=== PATIENT | male | born 1955 | race Two or more races ===

== ENCOUNTER 2018-03-15 15:50 | Emergency (ER) | payer MEDICARE, OTHER ==
[~2018-03-15] VITALS: Ht 167.6 cm; Wt 61.2 kg
[~2018-03-15 15:50] MED LIST: AMLODIPINE BESY10 MG ORAL; ATORVASTATIN CA20 MG ORAL; DEXILANT60 MG ORAL; LISINOPRIL20 MG ORAL; PHOSLO667 M1 PO; RENVELA800 MG ORAL; UNOBMED
[2018-03-15 16:30] VITALS: BP 157/87
[2018-03-15] MEDS ORDERED: Morphine Sulfate 4mg/ml Inj (IV/IM USE ONLY) IVP ONE ×3 (16:30→21:00)
--- NOTE | 2018-03-15 17:08 | Emergency Room Report ---
History of Present Illness General Chief Complaint: Nausea Source: Patient (Boby Mahajan MD) Present Illness HPI Patient presents with severe lower back pain that began after dialysis today. He never had back pain like this before. In addition to that he's had black diarrhea. He's never had that either. He is also complaining about some nausea. No medications have been taken for pain. There were no problems at dialysis today today. H/O gastritis H/O anemia - alleges never with transfusion H/O HTN No fevers, chills, vomiting, headache, dyspnea, chest pain, fever, chills. (Bboy Mahajan MD) Allergies: Coded Allergies: No Known Allergies (Unverified , 01/07/15) Patient History Past Medical History: see triage record Past Surgical History: other - fistula L arm, cataract surgery Social History: Denies: smoking, alcohol use Social History Narrative with friend, born in [facility] Reviewed Nursing Documentation: PMH: Agreed; PSxH: Agreed (Boby Mahajan MD) Nursing Documentation-PMH Past Medical History: No History, Except For Hx Cardiac Problems: Yes Hx Hypertension: Yes Hx Diabetes: Yes Hx Cancer: No Hx Gastrointestinal Problems: Yes Hx Dialysis: Yes - Tue/Aubree/Sat Hx Neurological Problems: No (Boby Mahajan MD) Review of Systems All Other Systems: negative except mentioned in HPI (Boby Mahajan MD) Physical Exam Vital Signs Date Time Temp Pulse Resp B/P (MAP) Pulse Ox O2 Delivery O2 Flow Rate FiO2 03/15/18 15:53 97.9 85 20 109/67 100 Room Air Sp02 EP Interpretation: reviewed, normal General Appearance: no apparent distress, GCS 15, mild distress, Chronically Ill Head: normocephalic Eyes: bilateral eye normal inspection, bilateral eye conjunctivae pale ENT: moist mucus membranes Neck: supple Respiratory: lungs clear, normal breath sounds Cardiovascular #1: regular rate, rhythm, no edema Cardiovascular #2: 2+ radial (R), 2+ radial (L) - fistula with pulsations, 2+ femoral (R), 2+ femoral (L) Gastrointestinal: normal inspection, normal bowel sounds, non tender, no mass, non-distended Rectal: heme positive stool - brown color Genitourinary: CVA tenderness (L) Musculoskeletal: gait/station normal, normal range of motion, no calf tenderness, tender - lumbar area Neurologic: alert, oriented x3, grossly normal Psychiatric: mood/affect normal Skin: warm/dry (Boby Mahajan MD) Procedures Critical Care Time Critical Care Time Total Critical Care Time: 120 min bedside evaluation and treatment excludes procedures (EKG). Reason for critical care: retroperitoneal hematoma/bleeding, GI bleed, repeat evaluations, multiple consultations for transfer higher level of care. Possible complications: hypotension, hypertension, CA, shock, arrhythmias, metabolic acidosis, end organ damage, respiratory failure. Interventions: pepcid, analgesia, blood transfusion with informed consent, transfer higher level of care with multiple consultations Course: Patient with back pain post dialysis. CT with large retroperitoneal/ perinephric hematoma L. No coagulopathy, but given DDAVP. Guaiac + stools, pepcid given. Attempt transfer [facility], declined after presentation (capacity). Present [facility] - declined capacity. Present [facility]. Requested CTA. Increased hematoma. Repeate H/H drop 2 points. Transfused 1 unit. Repeat analgesia. Accepted [facility]. PMD requesting transfer [facility]. Multiple discussions with [facility]. Pain improved and patient tolerating blood. Consultations: nursing staff, EMS, family Performed by: Dr. Mahajan Tolerated well condition = critical but improved and stable for transfer to higher level of care (Boby Mahajan MD) Medical Decision Making Diagnostic Impression: Primary Impression: Retroperitoneal hematoma Additional Impressions: ESRD (end stage renal disease) on dialysis GI bleed Qualified Codes: K92.2 - Gastrointestinal hemorrhage, unspecified Anemia Qualified Codes: D64.89 - Other specified anemias ER Course Patient presents with severe lumbar back pain and black stools. I differential includes aortic aneurysm, pyelonephritis, GI bleed, electrolyte imbalance amongst others. Evaluation will be with EKG, chest x-ray, CT of the back and abdomen and pelvis and labs. The patient will be treated with analgesia and Pepcid initially. CT call with L large retroperitoneal hematoma. Contact [facility] - state sat. Contact [facility] 17:28. Coags normal. DDAVP ordered. Repeating H/H. [facility] return call @ 18:25 stating capacity and declined. Calling [facility] Vascular 18:30. Dr. Santiago states we need to do CTA. H/H dropped 2 points. CTA shows hematoma has expanded. Contact Dr. Santiago again 20:37. Will start transfusion. Discussed with Dr. Ellis. Dr. Santiago accepts patient. Informed consent for transfusion with patient. Blood infusing. Arranging transport. Pain somewhat improved. VS stable. No evidence of hemorrhagic shock. [facility] of Dr. Ellis. Uncertain if would be accepted (had been declined before). As accepted at [facility], proceed with transfer there. Dr. Kurtz aware of plan for transfer and discussions with [facility]. Laboratory Tests Test 03/15/18 16:47 03/15/18 17:17 White Blood Count 7.4 K/UL (4.8-10.8) Red Blood Count 3.31 M/UL (4.70-6.10) L Hemoglobin 10.0 G/DL (14.2-18.0) L Hematocrit 31.2 % (42.0-52.0) L Mean Corpuscular Volume 94 FL (80-99) Mean Corpuscular Hemoglobin 30.1 PG (27.0-31.0) Mean Corpuscular Hemoglobin Concent 32.0 G/DL (32.0-36.0) Red Cell Distribution Width 13.3 % (11.6-14.8) Platelet Count 220 K/UL (150-450) Mean Platelet Volume 7.1 FL (6.5-10.1) Neutrophils (%) (Auto) 83.7 % (45.0-75.0) H Lymphocytes (%) (Auto) 8.4 % (20.0-45.0) L Monocytes (%) (Auto) 5.2 % (1.0-10.0) Eosinophils (%) (Auto) 1.3 % (0.0-3.0) Basophils (%) (Auto) 1.3 % (0.0-2.0) Prothrombin Time 11.5 SEC (9.30-11.50) Prothrombin Time INR 1.1 (0.9-1.1) PTT 29 SEC (23-33) Sodium Level 134 MMOL/L (136-145) L Potassium Level 4.0 MMOL/L (3.5-5.1) Chloride Level 99 MMOL/L (98-107) Carbon Dioxide Level 19 MMOL/L (21-32) L Anion Gap 16 mmol/L (5-15) H Blood Urea Nitrogen 18 mg/dL (7-18) Creatinine 4.6 MG/DL (0.55-1.30) H Estimate Glomerular Filtration Rate 13.1 mL/min (>60) Glucose Level 181 MG/DL (74-106) H Calcium Level 9.2 MG/DL (8.5-10.1) Total Bilirubin 1.0 MG/DL (0.2-1.0) Aspartate Amino Transferase (AST) 47 U/L (15-37) H Alanine Aminotransferase (ALT) 19 U/L (12-78) Alkaline Phosphatase 131 U/L (46-116) H Total Creatine Kinase 46 U/L (26-308) Troponin I 0.031 ng/mL (0.000-0.056) Total Protein 8.8 G/DL (6.4-8.2) H Albumin 3.5 G/DL (3.4-5.0) Globulin 5.3 g/dL Albumin/Globulin Ratio 0.7 (1.0-2.7) L Lipase 275 U/L (73-393) Urine Color Pale yellow Urine Appearance Cloudy Urine pH 6.5 (4.5-8.0) Urine Specific Bells 1.010 (1.005-1.035) Urine Protein 4+ (NEGATIVE) H Urine Glucose (UA) 1+ (NEGATIVE) H Urine Ketones 1+ (NEGATIVE) H Urine Blood 5+ (NEGATIVE) H Urine Nitrite Negative (NEGATIVE) Urine Bilirubin Negative (NEGATIVE) Urine Urobilinogen Normal MG/DL (0.0-1.0) Urine Leukocyte Esterase 3+ (NEGATIVE) H Urine RBC 60-80 /HPF (0 - 0) H Urine WBC 5-10 /HPF (0 - 0) H Urine Squamous Epithelial Cells None /LPF (NONE/OCC) Urine Bacteria Moderate /HPF (NONE) H (Boby Mahajan MD) ER Course This patient was initially signout to me for transfer to [facility]. I spoke with Dr.Shetcher Travis who is the primary care doctor. He wanted the patient to be transferred to [facility]. Since there was an ICU bed at [place], I spoke with Dr. Ortega who is the ICU attending. He spoke with Dr. Alberto and IR. He accepted the patient for transfer to [facility]. We call [facility] back to cancel the transfer. Patient will be going to [facility] instead. (Koby Kurtz MD) EKG Diagnostic Results Rate: normal Rhythm: NSR ST Segments: no acute changes - Nonspecific ST-T wave changes with prolonged QT interval (Bboy Mahajan MD) Rhythm Strip Diag. Results EP Interpretation: yes Rhythm: NSR, no PVC's, no ectopy (Boby Mahajan MD) Chest X-Ray Diagnostic Results Chest X-Ray Diagnostic Results : Chest X-Ray Ordered: Yes # of Views/Limited/Complete: 1 View Indication: Other EP Interpretation: Yes Interpretation: no consolidation, no effusion, no pneumothorax, other - inc cor Impression: Other Electronically Signed by: Electronically signed by Boby Mahajan MD (Boby Mahajan MD) CT/MRI/US Diagnostic Results CT/MRI/US Diagnostic Results #1: Imaging Test Ordered: CT abd pelvis Impression large retroperitoneal hematoma CT/MRI/US Diagnostic Results #2: Imaging Test Ordered: CTA Impression Redemonstration subcapsular left renal hematoma. Since the prior study just throughout previous there is a new hematoma to the posterior left perinephric space measuring 8.8 x 3.8 cm. There is a 16 cm anterior left perinephric hematoma which is similar to prior. No active arterial face extravasation. (Boby Mahajan MD) Last Vital Signs Date Time Temp Pulse Resp B/P (MAP) Pulse Ox O2 Delivery O2 Flow Rate FiO2 03/15/18 23:50 98.3 86 18 142/57 100 Room Air Status: improved (Boby Mahajan MD) Disposition: XFER [facility] - higher level of care Condition: Critical - but stable for transfer Boby Mahajan MD Mar 15, 2018 17:08 Koby Kurtz MD Mar 15, 2018 23:27
[2018-03-15 17:19] LABS: BASOPHILS % (AUTO) 1.3 % (0.0-2.0); EOSINOPHILS % (AUTO) 1.3 % (0.0-3.0); HEMATOCRIT 31.2 % (42.0-52.0); LYMPHOCYTES % (AUTO) 8.4 % (20.0-45.0); MEAN CORPUSCULAR VOLUME 94 FL (80-99); MONOCYTES % (AUTO) 5.2 % (1.0-10.0); NEUTROPHILS % (AUTO) 83.7 % (45.0-75.0); PLATELET COUNT 220 K/UL (150-450); RED BLOOD COUNT 3.31 M/UL (4.70-6.10); RED CELL DISTRIBUTION WIDTH 13.3 % (11.6-14.8); WHITE BLOOD COUNT 7.4 K/UL (4.8-10.8)
[2018-03-15 17:36] LABS: APPEARANCE,URINE CLOUDY; BILIRUBIN, URINE NEGATIVE (NEGATIVE); COLOR,URINE PALE YELLOW; GLUCOSE, URINE (UA) 1+ (NEGATIVE); KETONES,URINE 1+ (NEGATIVE); LEUKOCYTE ESTERASE ,URINE 3+ (NEGATIVE); NITRITE,URINE NEGATIVE (NEGATIVE); PH,URINE 6.5 (4.5-8.0); PROTEIN,URINE 4+ (NEGATIVE); UROBILINOGEN,URINE NORMAL MG/DL (0.0-1.0)
[2018-03-15 17:39] LABS: ANION GAP 16 mmol/L (5-15); BLOOD UREA NITROGEN 18 mg/dL (7-18); CALCIUM 9.2 MG/DL (8.5-10.1); CARBON DIOXIDE 19 MMOL/L (21-32); CHLORIDE 99 MMOL/L (98-107); CREATININE 4.6 MG/DL (0.55-1.30); SODIUM 134 MMOL/L (136-145)
[2018-03-15 17:40] LABS: ALANINE AMINOTRANSFERASE 19 U/L (12-78); ALBUMIN 3.5 G/DL (3.4-5.0); ALBUMIN/GLOBULIN RATIO 0.7 (1.0-2.7); ALKALINE PHOSPHATASE 131 U/L (46-116); ASPARTATE AMINO TRANSFERASE 47 U/L (15-37); CREATINE KINASE 46 U/L (26-308)
[2018-03-15 17:42] LABS: INR 1.1 (0.9-1.1)
[2018-03-15] MEDS ORDERED: Desmopressin Nasal 5ml NASAL ONE (18:15)
[2018-03-15 18:30] VITALS: BP 140/69
[2018-03-15] MEDS ORDERED: Isovue-370 150ml vial INJ PRN (19:00)
[2018-03-15 19:06] LABS: HEMATOCRIT 26.4 % (42.0-52.0); HEMOGLOBIN 8.2 G/DL (14.2-18.0); MEAN CORPUSCULAR VOLUME 96 FL (80-99); PLATELET COUNT 213 K/UL (150-450); RED BLOOD COUNT 2.77 M/UL (4.70-6.10); RED CELL DISTRIBUTION WIDTH 13.5 % (11.6-14.8); WHITE BLOOD COUNT 10.7 K/UL (4.8-10.8)
[2018-03-15 20:46] VITALS: BP 155/71
[2018-03-15 23:10] VITALS: BP 139/63
[2018-03-15 23:49] VITALS: BP 142/57
[2018-03-15 23:50] VITALS: BP 142/57
--- NOTE | 2018-03-16 13:47 | Diagnostic Imaging Report ---
Indication: Abdominal pain Technique: Continuous helical transaxial imaging of the abdomen and pelvis was obtained from the lung bases to the pubic symphysis. No intravenous contrast was administered. Coronal 2-D reformats were also obtained. Automatic Exposure Control was utilized. Total Dose length Product (DLP): 996.[address] Dose Index Volume (CTDIvol): 11.32,10.75 mGy Comparison: none Findings: There is a fairly large left capsular hematoma demonstrated with heterogeneous hyperdense blood. The [place] left kidney is a small. The capsular component of the hematoma is approximately 2.5 cm x 9 cm and is seen from the upper to lower poles. There is also moderate degree of retroperitoneal and perinephric the soft tissue stranding due to acute hematoma. The largest component of this is in the anterior aspect of the retroperitoneum. On transaxial images the hematoma measures 10 x 4.7 x 15 cm. This starts below the kidney with a hematoma extending along the left psoas margin into the left hemipelvis. Moderate small vessel arterial calcifications are present. Fatty liver noted. Mild basal atelectasis demonstrated. Hiatal hernia noted. Thickening of the urinary bladder wall demonstrated. IMPRESSION: Prominent acute left renal hematoma with the involvement of the left renal capsule and portions of the perinephric retroperitoneum especially the anterior pararenal space as described above. Extensive small vessel vascular disease likely related to secondary hyperparathyroidism. Thickening of the urinary bladder wall. Correlate for cystitis. Mild basal atelectasis Hiatal hernia Fatty liver [facility] has communicated the preliminary results to the Emergency Department. Their findings are largely concordant with this report. The CT scanner at [facility] is accredited by the [employer] and the scans are performed using dose optimization techniques as appropriate to a performed exam including Automatic Exposure control.
--- NOTE | 2018-03-16 13:47 | Diagnostic Imaging Report ---
Indication: Retroperitoneal left renal hematoma Technique: Continuous helical transaxial imaging of the abdomen and pelvis was obtained from the lung base to the pubic symphysis during rapid intravenous contrast administration. Arterial phase of enhancement obtained. Coronal 2-D reformats were also obtained and maximum intensity projection images in multiple planes. Study obtained in a Siemens sensation [address] Total Dose length Product (DLP): [address] Dose Index Volume (CTDIvol): 8.11 x 3, 64.89, 10.21 mGy Comparison: [address] Findings: There is redemonstration of a large left renal capsular hematoma and large perinephric hematoma anterior to the left kidney in continuity with the left kidney occupying the anterior left pararenal space. The perinephric component of the hematoma measures about 9.6 x 5.0 on transaxial images. The capsular portion of the hematoma has also enlarged since the last examination. In addition, there is a new hematoma just posterior to the left kidney measuring approximately 4.8 x 2.8 x 7.2 cm. Additional more ill-defined blood seen as soft tissue stranding within the retroperitoneum along portions of the anterior and posterior pararenal space noted. The findings indicative of active bleeding although a definite blush of a contrast extravasation not demonstrated on this study which was unfortunately only obtained during arterial phase. Both kidneys are atrophic although the margins of the left kidney are difficult to see as they are fairly contiguous with the capsular hematoma. There is extensive vascular calcification present. The liver is low in attenuation consistent with fatty infiltration. There is blood tracking around the liver and into the paracolic gutter and pelvis. Hiatal hernia is present. There is a small amount of atelectasis present at the left lung base. Aorta is moderately calcified. The major branches of the aorta including the celiac artery and superior mesenteric artery show no significant stenosis. There is a arterial vascular plaque present within portions of both renal arteries which should show no significant stenosis. The common and external iliac arteries are unremarkable. The internal iliac arteries are unremarkable. IMPRESSION: Interval enlargement of left capsular hematoma and retroperitoneal hematomas as described above indicative of active bleeding. Other incidental findings as above unchanged. [facility] has communicated the preliminary results to the Emergency Department. Their findings are largely concordant with this report. Critical value communication. Findings were discussed via telephone with Dr. Mahajan in the emergency department 12/13/18 @20:[address] Brooks messina from [employer]. The CT scanner at [facility] is accredited by the [employer] and the scans are performed using dose optimization techniques as appropriate to a performed exam including Automatic Exposure control.
--- NOTE | 2018-03-16 13:47 | Diagnostic Imaging Report ---
Indication: Back pain Technique: Continuous helical transaxial imaging of the lumbar spine was obtained from the lung bases to the pubic symphysis. No IV contrast was administered. Coronal 2-D reformats were also obtained. Study obtained in a Siemens sensation [address] Total Dose length Product (DLP): 353.[address] Dose Index Volume (CTDIvol): 12.07 mGy Comparison: None Findings: No acute fractures identified. The bones appear osteopenic. There is no malalignment. Some endplate spurs noted. The thecal sac and spinal canal appear small in general especially in the mid to lower part of the lumbar spine. Aortoiliac calcifications are fairly extensive. There is a partially image a retroperitoneal hematoma on the left. This was discussed in detail on the CT abdomen and pelvis report. IMPRESSION: No acute injury identified within the lumbar spine. Generalized osteopenia and mild degenerative changes noted. Please refer to the separately dictated CT abdomen pelvis The CT scanner at [facility] is accredited by the [employer] and the scans are performed using dose optimization techniques as appropriate to a performed exam including Automatic Exposure control.
--- NOTE | 2018-03-16 13:48 | Diagnostic Imaging Report ---
Indication: Dyspnea Comparison: None A single view chest radiograph was obtained. Findings: No definite infiltrate or pulmonary vascular congestion identified. There is probable mild atelectasis at the lung bases especially on the left. Lung volumes are low bilaterally. The heart is enlarged. The aorta is mildly enlarged consistent with atherosclerotic vascular disease. The bones are osteopenic. Impression: Mild basilar atelectasis.
--- NOTE | 2018-03-16 16:05 | Cardiology Report ---
APPROVED REPORT EKG Measurement Heart [id number] PA 150P54 [id number] Normal sinus rhythm Nonspecific ST and T wave abnormality Prolonged QT Abnormal ECG
== END 2018-03-15 23:51 | disposition short-term general hospital (02) ==
LOC: EMR 16:40
DX: K66.1 Hemoperitoneum (principal); I12.0 Hypertensive chronic kidney disease with stage 5 chronic kidney disease or end stage renal disease; N18.6 End stage renal disease; Z99.2 Dependence on renal dialysis; E11.9 Type 2 diabetes mellitus without complications; K92.2 Gastrointestinal hemorrhage, unspecified; D64.9 Anemia, unspecified; K76.0 Fatty (change of) liver, not elsewhere classified; K44.9 Diaphragmatic hernia without obstruction or gangrene; M85.88 Other specified disorders of bone density and structure, other site
CPT/HCPCS: 36415; 36430; 71045; 72131; 74175; 74176; 80053; 81003; 82550; 83690; 84484; 85007; 85025; 85610; 85730; 86850; 86900; 86901; 86920; 87086; 93005; 96374; 96375; 96376; 99291; J2270; J2405; P9016; Q9967; S0028

== ENCOUNTER 2018-03-22 05:55 | Emergency (ER) | payer MEDICARE, OTHER ==
[~2018-03-22] VITALS: Ht 162.6 cm; Wt 59.0 kg
[2018-03-22 06:05] VITALS: BP 167/68
[2018-03-22] MEDS ORDERED: Isovue-300 100ml vial INJ PRN (06:45)
[2018-03-22 06:55] LABS: BASOPHILS % (AUTO) 1.4 % (0.0-2.0); HEMATOCRIT 28.7 % (42.0-52.0); HEMOGLOBIN 9.1 G/DL (14.2-18.0); MEAN CORPUSCULAR VOLUME 94 FL (80-99); MONOCYTES % (AUTO) 16.8 % (1.0-10.0); NEUTROPHILS % (AUTO) 62.8 % (45.0-75.0); PLATELET COUNT 403 K/UL (150-450); RED BLOOD COUNT 3.03 M/UL (4.70-6.10); RED CELL DISTRIBUTION WIDTH 13.7 % (11.6-14.8); WHITE BLOOD COUNT 5.9 K/UL (4.8-10.8)
[2018-03-22 07:03] LABS: ANION GAP 13 mmol/L (5-15); BLOOD UREA NITROGEN 52 mg/dL (7-18); CALCIUM 9.9 MG/DL (8.5-10.1); CARBON DIOXIDE 23 MMOL/L (21-32); CHLORIDE 94 MMOL/L (98-107); CREATININE 9.5 MG/DL (0.55-1.30); POTASSIUM 5.3 MMOL/L (3.5-5.1); SODIUM 130 MMOL/L (136-145)
--- NOTE | 2018-03-22 07:12 | Emergency Room Report ---
History of Present Illness General Chief Complaint: General Complaint Source: Patient Present Illness HPI This patient states that he was due for dialysis this morning and when he went to the dialysis clinic he was told he could not get dialysis and that he needed to come to the emergency department. Further investigation, the patient was admitted to [facility] and was dialyzed 3 days ago on the day he was discharged. He then showed up for his normal dialysis time that is Monday, , Monday. He was told to come to the emergency department for dialysis. He has no complaints. He denies chest pain or short of breath. He denies abdominal pain. He denies recent illness. He denies fever or chills. He denies cough or congestion. He has no other complaints. Allergies: Coded Allergies: No Known Allergies (Unverified , 01/07/15) Patient History Past Medical History: see triage record, DM, HTN, renal disease, dialysis Social History: Denies: smoking, alcohol use, drug use Reviewed Nursing Documentation: PMH: Agreed; PSxH: Agreed Nursing Documentation-PMH Hx Cardiac Problems: Yes Hx Hypertension: Yes Hx Pacemaker: No Hx Asthma: No Hx COPD: No Hx Diabetes: Yes Hx Cancer: No Hx Gastrointestinal Problems: No Hx Dialysis: Yes - , , MON History Of Psychiatric Problem: No Hx Neurological Problems: No Hx Cerebrovascular Accident: No Hx Seizures: No Review of Systems All Other Systems: negative except mentioned in HPI Physical Exam Vital Signs Date Time Temp Pulse Resp B/P (MAP) Pulse Ox O2 Delivery O2 Flow Rate FiO2 03/22/18 05:59 98.2 89 18 130/68 98 Room Air Sp02 EP Interpretation: reviewed, normal General Appearance: no apparent distress, alert, GCS 15, non-toxic Head: normocephalic, atraumatic Eyes: bilateral eye normal inspection, bilateral eye PERRL ENT: hearing grossly normal, normal pharynx, no angioedema, normal voice Neck: full range of motion, supple/symm/no masses Respiratory: chest non-tender, lungs clear, normal breath sounds, speaking full sentences Cardiovascular #1: regular rate, rhythm, no edema Gastrointestinal: normal bowel sounds, non tender, soft, non-distended, no guarding, no rebound Rectal: deferred Musculoskeletal: back normal, gait/station normal, normal range of motion, non- tender Neurologic: alert, oriented x3, responsive, motor strength/tone normal, sensory intact, speech normal Psychiatric: judgement/insight normal, memory normal, mood/affect normal, no suicidal/homicidal ideation Skin: normal color, no rash, warm/dry, well hydrated Medical Decision Making Diagnostic Impression: Primary Impression: ESRD (end stage renal disease) ER Course There was some confusion regarding the dialysis clinic and concern that the patient had missed dialysis. However, the patient was an inpatient at [facility] and did receive his routine dialysis. The patient has no complaints. The dialysis center was contacted and the situation was explained. The dialysis center agreed to have this patient come immediately to their clinic for dialysis. I do not feel that this patient needs any further evaluation emergency Department is better served getting his typical dialysis at the dialysis clinic. He is discharged with instructions to go to dialysis clinic. The clinic was contacted and is expecting him. He is given close return precautions about instructions. Please note that this Emergency Department Report was dictated using [email or web address] press operator assistant technology software, occasionally this can lead to erroneous entry secondary to interpretation by the dictation equipment. Laboratory Tests Test 03/22/18 06:30 White Blood Count 5.9 K/UL (4.8-10.8) Red Blood Count 3.03 M/UL (4.70-6.10) L Hemoglobin 9.1 G/DL (14.2-18.0) L Hematocrit 28.7 % (42.0-52.0) L Mean Corpuscular Volume 94 FL (80-99) Mean Corpuscular Hemoglobin 29.9 PG (27.0-31.0) Mean Corpuscular Hemoglobin Concent 31.6 G/DL (32.0-36.0) L Red Cell Distribution Width 13.7 % (11.6-14.8) Platelet Count 403 K/UL (150-450) Mean Platelet Volume 6.2 FL (6.5-10.1) L Neutrophils (%) (Auto) 62.8 % (45.0-75.0) Lymphocytes (%) (Auto) 15.0 % (20.0-45.0) L Monocytes (%) (Auto) 16.8 % (1.0-10.0) H Eosinophils (%) (Auto) 4.0 % (0.0-3.0) H Basophils (%) (Auto) 1.4 % (0.0-2.0) Prothrombin Time 10.9 SEC (9.30-11.50) Prothrombin Time INR 1.0 (0.9-1.1) PTT 28 SEC (23-33) Sodium Level 130 MMOL/L (136-145) L Potassium Level 5.3 MMOL/L (3.5-5.1) H Chloride Level 94 MMOL/L (98-107) L Carbon Dioxide Level 23 MMOL/L (21-32) Anion Gap 13 mmol/L (5-15) Blood Urea Nitrogen 52 mg/dL (7-18) H Creatinine 9.5 MG/DL (0.55-1.30) H Estimate Glomerular Filtration Rate 5.7 mL/min (>60) Glucose Level 111 MG/DL (74-106) H Calcium Level 9.9 MG/DL (8.5-10.1) Total Bilirubin Pending Aspartate Amino Transferase (AST) Pending Alanine Aminotransferase (ALT) Pending Alkaline Phosphatase Pending Total Creatine Kinase Pending Creatine Kinase MB Pending Troponin I Pending Total Protein Pending Albumin Pending Globulin Pending EKG Diagnostic Results Rate: normal Rhythm: NSR ST Segments: no acute changes Rhythm Strip Diag. Results EP Interpretation: yes Rate: 80's Rhythm: NSR, no PVC's, no ectopy Last Vital Signs Date Time Temp Pulse Resp B/P (MAP) Pulse Ox O2 Delivery O2 Flow Rate FiO2 03/22/18 06:41 89 18 Room Air 03/22/18 06:05 98.4 167/68 100 Disposition: HOME, SELF-CARE Condition: Stable Referrals: NOT CHOSEN IPA/,REFERRING (PCP) Diane Garza DO Mar 22, 2018 07:12
[2018-03-22 07:19] LABS: ALANINE AMINOTRANSFERASE 17 U/L (12-78); ALBUMIN 3.6 G/DL (3.4-5.0); ALBUMIN/GLOBULIN RATIO 0.6 (1.0-2.7); ALKALINE PHOSPHATASE 130 U/L (46-116); ASPARTATE AMINO TRANSFERASE 28 U/L (15-37); BILIRUBIN,TOTAL 1.1 MG/DL (0.2-1.0); CKMB < 0.5 NG/ML (0.0-3.6); CREATINE KINASE 53 U/L (26-308)
[2018-03-22 07:23] LABS: BILIRUBIN,DIRECT 0.2 MG/DL (0.0-0.3)
[2018-03-22 07:26] VITALS: BP 158/72
--- NOTE | 2018-03-22 09:40 | Cardiology Report ---
APPROVED REPORT EKG Measurement Heart [id number] Normal sinus rhythm Nonspecific ST abnormality Minimal voltage for LVH Abnormal ECG
--- NOTE | 2018-03-22 10:14 | Diagnostic Imaging Report ---
Indication: Chest pain Technique: XRAY Chest 1v Comparison: 03/15/2018 Findings: Stable cardiomegaly. Mediastinal contours are sharp. Atherosclerotic calcifications noted in the aortic arch. Unchanged linear atelectasis or scarring at the left base. No new focal consolidation. No pleural effusion or pneumothorax. Degenerative changes are noted in the spine. No acute osseous abnormality. Impression: Unchanged linear atelectasis or scarring at the left base. No new focal consolidation. Stable cardiomegaly. No radiographic evidence to suggest pulmonary edema.
== END 2018-03-22 07:29 | disposition home or self-care (01) ==
LOC: EMR 06:31
DX: I12.0 Hypertensive chronic kidney disease with stage 5 chronic kidney disease or end stage renal disease (principal); N18.6 End stage renal disease; Z99.2 Dependence on renal dialysis; E11.22 Type 2 diabetes mellitus with diabetic chronic kidney disease
CPT/HCPCS: 36415; 71045; 80053; 82248; 82550; 82553; 84484; 85025; 85610; 85730; 86850; 86900; 86901; 93005; 99284

== ENCOUNTER 2018-04-24 12:08 | Emergency (ER) | payer MEDICARE, OTHER ==
[~2018-04-24] VITALS: Ht 170.2 cm; Wt 59.0 kg
[2018-04-24 12:10] VITALS: BP 153/76
--- NOTE | 2018-04-24 12:10 | NUR ---
ED Nurse Note: Pt present at ER from pt's PCP's referal. Pt went to his PCP's office and c/o chest pain 5/10 and he sent pt here. Pt still reported chest pain 5/10 from anterior and radiates to back. Denied N/V, CANO. Fistula present in Lt upper arm and intact. Pt reported dialysis every Tue, Thur, Sat and he received it this morning. AAO x4 and ambulatory. Skin dry but intact. calm and cooperative.
[2018-04-24 13:01] LABS: BASOPHILS % (AUTO) 1.5 % (0.0-2.0); EOSINOPHILS % (AUTO) 3.7 % (0.0-3.0); HEMATOCRIT 37.2 % (42.0-52.0); HEMOGLOBIN 11.7 G/DL (14.2-18.0); LYMPHOCYTES % (AUTO) 15.3 % (20.0-45.0); MEAN CORPUSCULAR VOLUME 91 FL (80-99); MONOCYTES % (AUTO) 10.3 % (1.0-10.0); NEUTROPHILS % (AUTO) 69.2 % (45.0-75.0); PLATELET COUNT 331 K/UL (150-450); RED CELL DISTRIBUTION WIDTH 15.8 % (11.6-14.8); WHITE BLOOD COUNT 4.8 K/UL (4.8-10.8)
[2018-04-24] MEDS ORDERED: Morphine Sulfate 4mg/ml Inj (IV/IM USE ONLY) IVP ONE (13:15)
[2018-04-24 13:32] LABS: ANION GAP 6 mmol/L (5-15); BLOOD UREA NITROGEN 12 mg/dL (7-18); CALCIUM 9.3 MG/DL (8.5-10.1); CARBON DIOXIDE 35 MMOL/L (21-32); CHLORIDE 96 MMOL/L (98-107); CREATININE 3.6 MG/DL (0.55-1.30); POTASSIUM 3.8 MMOL/L (3.5-5.1); SODIUM 137 MMOL/L (136-145)
[2018-04-24 13:47] LABS: ALANINE AMINOTRANSFERASE 14 U/L (12-78); ALBUMIN 3.4 G/DL (3.4-5.0); ALBUMIN/GLOBULIN RATIO 0.6 (1.0-2.7); ALKALINE PHOSPHATASE 147 U/L (46-116); ASPARTATE AMINO TRANSFERASE 22 U/L (15-37); BILIRUBIN,TOTAL 0.8 MG/DL (0.2-1.0); CKMB < 0.5 NG/ML (0.0-3.6); CREATINE KINASE 30 U/L (26-308)
--- NOTE | 2018-04-24 14:01 | NUR ---
ED Nurse Note: Pt reported chest pain resolved 0/10.
[2018-04-24 14:25] VITALS: BP 168/76
--- NOTE | 2018-04-24 14:42 | NUR ---
ED Nurse Note: A/OX4. PT IS CLEARED BY DR. Carlos TRAN INSTRUCTION IS GIVEN, PT VERBALIZED UNDERSTANDING. ID AND ID WRIST BAND REMOVED. ALL BELONGINGS GIVEN TO PT. PT AMBULATED OUT OF ER WITH STEADY GAIT. DENIES ANY PAIN AT THIS TIME.
--- NOTE | 2018-04-24 17:18 | Diagnostic Imaging Report ---
Indication: Chest pain Technique: One view of the chest Comparison: 03/22/2018 Findings: No acute infiltrates, effusions, or congestion. Tortuous calcified aorta. Normal heart size. Upper mediastinum unremarkable. Impression: No acute process.
--- NOTE | 2018-04-25 18:44 | Cardiology Report ---
APPROVED REPORT EKG Measurement Heart [id number] Normal sinus rhythm Possible Left atrial enlargement Prolonged QT Abnormal ECG
--- NOTE | 2018-04-28 00:14 | Emergency Room Report ---
History of Present Illness General Chief Complaint: Chest Pain Source: Patient Present Illness HPI Patient presents with complaints of upper back pain and chest pain I spoke to Dr. Gonzalez who had spoken to the patient earlier There was concern and he wanted to have an x-ray obtained Patient denies any shortness of breath denies any pleurisy He reports that the chest pain has essentially resolved He has had off and on neck and upper back pain However he felt that there was some exacerbation Patient had dialysis this morning denies any focal weakness denies any vomiting or diarrhea denies any fevers or cough Allergies: Coded Allergies: No Known Allergies (Unverified , 01/07/15) Patient History Past Medical History: see triage record Pertinent Family History: none Reviewed Nursing Documentation: PMH: Agreed; PSxH: Agreed Nursing Documentation-PMH Hx Cardiac Problems: Yes Hx Hypertension: Yes Hx Pacemaker: No Hx Asthma: No Hx COPD: No Hx Diabetes: Yes Hx Cancer: No Hx Gastrointestinal Problems: No Hx Dialysis: Yes - T, Th, Sat Hx Neurological Problems: No Hx Cerebrovascular Accident: No Hx Seizures: No Review of Systems All Other Systems: negative except mentioned in HPI Physical Exam Vital Signs Date Time Temp Pulse Resp B/P (MAP) Pulse Ox O2 Delivery O2 Flow Rate FiO2 04/24/18 12:10 98.1 97 17 153/76 97 Room Air 04/24/18 12:10 97 Sp02 EP Interpretation: reviewed, normal General Appearance: well appearing, no apparent distress Head: normocephalic, atraumatic Eyes: bilateral eye PERRL, bilateral eye EOMI ENT: hearing grossly normal, normal pharynx, TMs + canals normal, uvula midline Neck: full range of motion, supple, no meningismus, no bony tend Respiratory: lungs clear, normal breath sounds, no rhonchi, no respiratory distress, no retraction, no accessory muscle use Cardiovascular #1: normal peripheral pulses, regular rate, rhythm, no edema, no gallop, no JVD, no murmur Gastrointestinal: normal bowel sounds, non tender, soft, no mass, no organomegaly, non-distended, no guarding, no hernia, no pulsatile mass, no rebound Genitourinary: no CVA tenderness Musculoskeletal: normal inspection Neurologic: oriented x3, responsive, copy operator III-XII nml as tested, motor strength/ tone normal, sensory intact Psychiatric: mood/affect normal Skin: normal color, no rash, warm/dry, palpation normal, other - AV dialysis site on the left appears larger than usual possible chronic aneurysm Lymphatic: normal inspection, no adenopathy Medical Decision Making Diagnostic Impression: Primary Impression: Chest pain Additional Impression: back pain ER Course Patient is a fairly complex patient with multiple differential to consideration including but not limited to cardiac cardiopulmonary and vascular emergencies Patient blood work at baseline levels X-ray imaging does not show any acute pathology Case was discussed with Dr. Gonzalez patient has had recent presentation here with fairly extensive workup as well At this time remains hemodynamically stable pain-free and stable for close follow-up CBC no acute disease Chemistry elevated BNP EKG Diagnostic Results Rate: normal Rhythm: NSR ST Segments: other - Nonspecific ST changes Rhythm Strip Diag. Results EP Interpretation: yes Rate: 60 Rhythm: NSR, no PVC's, no ectopy Chest X-Ray Diagnostic Results Chest X-Ray Diagnostic Results : Chest X-Ray Ordered: Yes # of Views/Limited/Complete: 1 View Indication: Chest Pain EP Interpretation: Yes Interpretation: no consolidation, no effusion, no pneumothorax Impression: No acute disease Electronically Signed by: Kevin Rondon DO Last Vital Signs Date Time Temp Pulse Resp B/P (MAP) Pulse Ox O2 Delivery O2 Flow Rate FiO2 04/24/18 14:25 98.4 85 23 168/76 100 Room Air 04/24/18 14:25 97 Status: improved Disposition: HOME, SELF-CARE Condition: Improved Referrals: Sergio Ellis MD (PCP) Patient Instructions: Nonspecific Chest Pain, Back Pain, Adult, [id number] Additional Instructions: Patient is provided with the discharge instructions notified to follow up with primary doctor in the next 2-3 days otherwise return to the er with any worsening symptoms. Please note that this report is being documented using ROBLOX technology. This can lead to erroneous entry secondary to incorrect interpretation by the dictating instrument. Kevin Rondon DO Apr 28, 2018 00:14
== END 2018-04-24 14:25 | disposition home or self-care (01) ==
LOC: EMR 13:40 → CANBEDREQ 14:02 → EMR 14:25
DX: M54.89 Other dorsalgia (principal); R07.9 Chest pain, unspecified; E11.9 Type 2 diabetes mellitus without complications; I10 Essential (primary) hypertension; Z99.2 Dependence on renal dialysis; Z86.79 Personal history of other diseases of the circulatory system
CPT/HCPCS: 36415; 71045; 80053; 82550; 82553; 83690; 83880; 84484; 85025; 93005; 96374; 96375; 99284; J2270; J2405

== ENCOUNTER 2018-05-07 08:01 | Inpatient (IN) | payer MEDICARE, OTHER ==
[~2018-05-07] VITALS: Ht 165.1 cm; Wt 57.6 kg
[2018-05-07] MEDS ORDERED: UNOBMED (08:11)
[2018-05-07 08:20] VITALS: BP 207/90
[2018-05-07 08:53] LABS: BASOPHILS % (AUTO) 1.4 % (0.0-2.0); EOSINOPHILS % (AUTO) 1.5 % (0.0-3.0); HEMATOCRIT 43.5 % (42.0-52.0); HEMOGLOBIN 13.5 G/DL (14.2-18.0); LYMPHOCYTES % (AUTO) 11.5 % (20.0-45.0); MEAN CORPUSCULAR VOLUME 89 FL (80-99); MONOCYTES % (AUTO) 5.9 % (1.0-10.0); NEUTROPHILS % (AUTO) 79.7 % (45.0-75.0); PLATELET COUNT 263 K/UL (150-450); RED BLOOD COUNT 4.87 M/UL (4.70-6.10); RED CELL DISTRIBUTION WIDTH 15.7 % (11.6-14.8); WHITE BLOOD COUNT 8.1 K/UL (4.8-10.8)
[2018-05-07 09:17] LABS: ALANINE AMINOTRANSFERASE 13 U/L (12-78); ALBUMIN/GLOBULIN RATIO 0.7 (1.0-2.7); ALKALINE PHOSPHATASE 151 U/L (46-116); ANION GAP 19 mmol/L (5-15); ASPARTATE AMINO TRANSFERASE 29 U/L (15-37); BILIRUBIN,TOTAL 0.7 MG/DL (0.2-1.0); BLOOD UREA NITROGEN 37 mg/dL (7-18); CARBON DIOXIDE 21 MMOL/L (21-32); CHLORIDE 90 MMOL/L (98-107); CKMB 0.6 NG/ML (0.0-3.6); CREATINE KINASE 51 U/L (26-308); CREATININE 6.9 MG/DL (0.55-1.30); POTASSIUM 4.8 MMOL/L (3.5-5.1); SODIUM 130 MMOL/L (136-145)
[2018-05-07] MEDS ORDERED: TYLENOL EXTRA500 MG ORAL (11:03)
[2018-05-07] MEDS ORDERED: LABETALOL HCL300 MG ORAL (11:03)
[2018-05-07] MEDS ORDERED: HUMALOG100 UNIT/4 SUBQ (11:03)
[2018-05-07 11:14] VITALS: BP 128/63
--- NOTE | 2018-05-07 11:25 | Emergency Room Report ---
History of Present Illness General Chief Complaint: Dizziness Source: Patient Present Illness HPI This patient is accompanied by his son. He states that this morning he noted that he was lightheaded and fatigued. He states he also was in his normal self. He seemed more confused. He states that he did drink alcohol yesterday. This is unusual for this patient. Normally does not drink alcohol as he has end-stage renal disease and is on dialysis. She he states that he is concerned about his behavior and intoxication. The patient himself states he feels lightheaded. There are no other complaints. There is no recent illness. He was no fever or chills. There is no nausea or vomiting. The patient did go to his normal dialysis. He goes to dialysis Monday, , Monday. Allergies: Coded Allergies: No Known Allergies (Unverified , 05/07/18) Patient History Past Medical History: see triage record, DM, HTN, ulcer, GERD, renal disease, dialysis Social History: Reports: alcohol use; Denies: smoking, drug use Reviewed Nursing Documentation: PMH: Agreed; PSxH: Agreed Nursing Documentation-PMH Past Medical History: No History, Except For Hx Cardiac Problems: Yes Hx Hypertension: Yes Hx Pacemaker: No Hx Asthma: No Hx COPD: No Hx Diabetes: Yes Hx Cancer: No Hx Gastrointestinal Problems: No Hx Dialysis: Yes - , , Mon Hx Neurological Problems: No Hx Cerebrovascular Accident: No Hx Seizures: No Review of Systems All Other Systems: negative except mentioned in HPI Physical Exam Vital Signs Date Time Temp Pulse Resp B/P (MAP) Pulse Ox O2 Delivery O2 Flow Rate FiO2 05/07/18 08:04 98.1 99 16 195/99 98 Room Air 05/07/18 08:20 100 Sp02 EP Interpretation: reviewed, normal General Appearance: no apparent distress, alert, GCS 15, non-toxic Head: normocephalic, atraumatic Eyes: bilateral eye normal inspection, bilateral eye PERRL ENT: hearing grossly normal, normal pharynx, no angioedema, normal voice Neck: full range of motion, supple/symm/no masses Respiratory: chest non-tender, lungs clear, normal breath sounds, no respiratory distress, no retraction, no accessory muscle use, speaking full sentences Cardiovascular #1: regular rate, rhythm, no edema Gastrointestinal: normal bowel sounds, non tender, soft, non-distended, no guarding, no rebound Rectal: deferred Musculoskeletal: back normal, normal range of motion, non-tender Neurologic: alert, responsive, motor strength/tone normal, sensory intact, speech normal Psychiatric: memory normal, mood/affect normal, no suicidal/homicidal ideation Skin: normal color, no rash, warm/dry, well hydrated Medical Decision Making Diagnostic Impression: Primary Impression: Hypoglycemia Additional Impressions: End stage renal disease ETOH intoxication Lactic acid acidosis ER Course This patient was found to be hypoglycemic. Initial blood sugar was 38. The patient was given high carbohydrate meal, juice, D50 and monitored here in the emergency department. The patient's blood sugar did not drop below normal but did drop into the 70s. Concerned that if this patient home he could become profoundly hypoglycemic again. His family and himself were unable to identify that he was hypoglycemic and this could lead to severe morbidity or . Given that the patient's blood sugar was still trending down I felt that this patient should be admitted for monitoring of his blood sugar. The patient also had a lactic acidosis and likely this was secondary to his hypoglycemia. I do not suspect sepsis and therefore I did not pursue septic treatment. Likely this is secondary to alcohol abuse, end-stage renal disease and poor oral intake. The patient is admitted to the ICU step down for concern that he would need to go on a D10 drip. This patient is critically ill. This patient required complex medical decision- making, aggressive intervention, extensive laboratory workup and monitoring. Critical care time: 40 minutes. Laboratory Tests Test 05/07/18 08:40 05/07/18 09:32 White Blood Count 8.1 K/UL (4.8-10.8) Red Blood Count 4.87 M/UL (4.70-6.10) Hemoglobin 13.5 G/DL (14.2-18.0) L Hematocrit 43.5 % (42.0-52.0) Mean Corpuscular Volume 89 FL (80-99) Mean Corpuscular Hemoglobin 27.7 PG (27.0-31.0) Mean Corpuscular Hemoglobin Concent 31.1 G/DL (32.0-36.0) L Red Cell Distribution Width 15.7 % (11.6-14.8) H Platelet Count 263 K/UL (150-450) Mean Platelet Volume 7.2 FL (6.5-10.1) Neutrophils (%) (Auto) 79.7 % (45.0-75.0) H Lymphocytes (%) (Auto) 11.5 % (20.0-45.0) L Monocytes (%) (Auto) 5.9 % (1.0-10.0) Eosinophils (%) (Auto) 1.5 % (0.0-3.0) Basophils (%) (Auto) 1.4 % (0.0-2.0) Sodium Level 130 MMOL/L (136-145) L Potassium Level 4.8 MMOL/L (3.5-5.1) Chloride Level 90 MMOL/L (98-107) L Carbon Dioxide Level 21 MMOL/L (21-32) Anion Gap 19 mmol/L (5-15) H Blood Urea Nitrogen 37 mg/dL (7-18) H Creatinine 6.9 MG/DL (0.55-1.30) H Estimate Glomerular Filtration Rate 8.2 mL/min (>60) Glucose Level 38 MG/DL (74-106) *L Lactic Acid Level 4.40 mmol/L (0.4-2.0) H 5.00 mmol/L (0.66-2.22) H Calcium Level 9.0 MG/DL (8.5-10.1) Total Bilirubin 0.7 MG/DL (0.2-1.0) Aspartate Amino Transferase (AST) 29 U/L (15-37) Alanine Aminotransferase (ALT) 13 U/L (12-78) Alkaline Phosphatase 151 U/L (46-116) H Total Creatine Kinase 51 U/L (26-308) Creatine Kinase MB 0.6 NG/ML (0.0-3.6) Creatine Kinase MB Relative Index 1.1 Troponin I 0.009 ng/mL (0.000-0.056) Total Protein 9.4 G/DL (6.4-8.2) H Albumin 4.0 G/DL (3.4-5.0) Globulin 5.4 g/dL Albumin/Globulin Ratio 0.7 (1.0-2.7) L Serum Alcohol 32 mg/dL EKG Diagnostic Results Rate: normal Rhythm: NSR ST Segments: no acute changes Rhythm Strip Diag. Results EP Interpretation: yes Rate: 90's Rhythm: NSR, no PVC's, no ectopy Chest X-Ray Diagnostic Results Chest X-Ray Diagnostic Results : Chest X-Ray Ordered: Yes # of Views/Limited/Complete: 1 View Indication: Other Interpretation: no consolidation, no effusion, no pneumothorax, no acute cardiopulmonary disease Impression: No acute disease Electronically Signed by: Diane Garza DO Last Vital Signs Date Time Temp Pulse Resp B/P (MAP) Pulse Ox O2 Delivery O2 Flow Rate FiO2 05/07/18 11:14 98.0 89 16 128/63 100 Room Air 100 Disposition: ADMITTED INPATIENT Condition: Critical Referrals: Sergio Ellis MD (PCP) Diane Garza DO May 07, 2018 11:25
--- NOTE | 2018-05-07 11:41 | Diagnostic Imaging Report ---
Indication: Cough Comparison: 04/24/2018 A single view chest radiograph was obtained. Findings: Some vascular prominence demonstrated bilaterally. Heart is enlarged. No definite interstitial or alveolar opacities seen. Bones are osteopenic. IMPRESSION: Suspect mild pulmonary vascular congestion. Correlate clinically
[2018-05-07 13:31] VITALS: BP 155/54
[2018-05-07 15:44] VITALS: BP 152/53
[2018-05-07] MEDS ORDERED: Albuterol/Ipratropium 3ml neb HHN PRN (17:00)
[2018-05-07] MEDS ORDERED: Heparin Sod 1000 units/ml 10ml IV PRN (17:02)
[2018-05-07] MEDS: D5 1/2NS 1,000 ML IV SCH (19:54)
[2018-05-07 20:00] VITALS: BP 172/90
[2018-05-07] MEDS: Docusate 100mg cap ORAL SCH (20:00)
--- NOTE | 2018-05-07 20:00 | History and Physical Report ---
DATE OF ADMISSION: 05/07/2018 CHIEF COMPLAINT: Altered level of consciousness. HISTORY OF PRESENT ILLNESS: This is a 62-year-old male, who is on dialysis every Monday, , and Monday. The patient presented today to this hospital's emergency department complaining of nausea and vomiting. According to the patient's family, the patient drank during the weekend excessively. PAST MEDICAL HISTORY: 1. End-stage renal failure, on dialysis. 2. History of alcohol abuse. 3. Hypertensive cardiovascular disease. 4. Noncompliance. 5. Type 2 diabetes mellitus. 6. Gastroesophageal reflux disease. HOME MEDICATIONS: 1. Tylenol p.r.n. 2. Amlodipine. 3. Atorvastatin. 4. Calcium acetate. 5. Dexilant. 6. Humalog sliding scale. 7. Labetalol. 8. Lisinopril. 9. Sevelamer. ALLERGIES: No known drug allergies. FAMILY HISTORY: Unremarkable. SOCIAL HISTORY: He lives at home. HABITS: He is nonsmoker. The patient is a heavy drinker. REVIEW OF SYSTEMS: Currently unable to obtain. The patient is confused. PHYSICAL EXAMINATION: GENERAL: This is an elderly male, who is currently very confused. The patient is otherwise in no acute distress. VITAL SIGNS: Blood pressure 152/53, pulse 114, temperature 98 oral, respirations 18, and O2 saturation 100% on room air. HEENT: The head is normocephalic and atraumatic. SKIN: The patient has a darkened skin. NECK: Supple. Trachea midline. There was no lymphadenopathy or thyromegaly. LUNGS: Bilateral wheezes. HEART: Tachycardia. S1 and S2. No rubs, murmurs, or gallops. ABDOMEN: Soft and nontender. Bowel sounds were active. EXTREMITIES: No clubbing, cyanosis, or edema. He has a left upper arm AV fistula with a thrill and bruit. LABORATORY AND ANCILLARY DATA: Initially Accu-Cheks were in the high 30s. Later on, after dextrose, went up to more than 100. The rest of the chemistry, sodium 130, potassium 4.8, CO2 21, BUN 37, and creatinine 6.9. Alkaline phosphatase 151. Albumin 4. Lactic acid 4.4 and later 5. CBC within normal limits. Chest x-ray, mild pulmonary vascular congestion. EKG shows sinus rhythm with fusion complexes and premature atrial complexes. ASSESSMENT: 1. Hypoglycemia due to alcoholism. 2. End-stage renal failure, on dialysis. 3. History of alcohol abuse. 4. Hypertensive cardiovascular disease. 5. Noncompliance. 6. Type 2 diabetes mellitus. 7. Gastroesophageal reflux disease. PLAN: 1. The patient definitely needs telemetry due to the possible prolonged action and adverse effect of alcohol consumption in a dialysis patient with chronic liver disease. 2. The patient will need dialysis tomorrow. 3. The patient may need active intravenous dextrose. Sergio Ellis M.D. DR: STACIA JOB#: [id number] CC:
[2018-05-07] MEDS: Heparin 5000 units/ml inj SUBQ SCH (20:07)
[2018-05-08] VITALS: BP 160/70
[2018-05-08 04:00] VITALS: BP 165/88
[2018-05-08 05:34] LABS: HEMATOCRIT 36.5 % (42.0-52.0); HEMOGLOBIN 11.9 G/DL (14.2-18.0); MEAN CORPUSCULAR VOLUME 87 FL (80-99); PLATELET COUNT 233 K/UL (150-450); RED BLOOD COUNT 4.17 M/UL (4.70-6.10); RED CELL DISTRIBUTION WIDTH 15.1 % (11.6-14.8)
[2018-05-08 06:02] LABS: ANION GAP 18 mmol/L (5-15); BLOOD UREA NITROGEN 53 mg/dL (7-18); CALCIUM 8.8 MG/DL (8.5-10.1); CARBON DIOXIDE 20 MMOL/L (21-32); CHLORIDE 91 MMOL/L (98-107); CREATININE 8.5 MG/DL (0.55-1.30); PHOSPHORUS 3.2 MG/DL (2.5-4.9); POTASSIUM 5.4 MMOL/L (3.5-5.1); SODIUM 129 MMOL/L (136-145)
[2018-05-08] MEDS: Calcium Acetate 667mg Tab ORAL SCH ×3 (06:16→16:03)
[2018-05-08 08:00] VITALS: BP 148/82
[2018-05-08] MEDS: Docusate 100mg cap ORAL SCH ×2 (10:21→20:34)
[2018-05-08] MEDS: Heparin 5000 units/ml inj SUBQ SCH ×2 (10:24→20:31)
[2018-05-08 11:49] VITALS: BP 179/92
[2018-05-08] MEDS: D5 1/2NS 1,000 ML IV SCH ×2 (13:02→14:40)
--- NOTE | 2018-05-08 13:47 | Cardiology Report ---
APPROVED REPORT EKG Measurement Heart [id number] Sinus rhythm with fusion complexes and premature atrial complexes with aberrant conduction Nonspecific ST abnormality Prolonged QT Abnormal ECG
--- NOTE | 2018-05-08 13:59 | Nephrology Progress Note ---
Assessment/Plan Plan Hypoglycemia - on IVF with dextrode - taper off. ESRD - HD done. Aneurysm of AVF - Vasc. Sx Eval Subjective Subjective Still sleepy. Objective Objective Last 24 Hour Vital Signs Date Time Temp Pulse Resp B/P (MAP) Pulse Ox O2 Delivery O2 Flow Rate FiO2 05/08/18 12:00 97 05/08/18 12:00 Room Air 05/08/18 11:49 99.6 98 18 179/92 (121) 96 05/08/18 10:21 91 148/82 05/08/18 08:00 91 05/08/18 08:00 98.9 91 18 148/82 (104) 98 05/08/18 08:00 Room Air 05/08/18 06:46 98.8 05/08/18 04:00 102 05/08/18 04:00 99.9 97 20 165/88 (113) 97 05/08/18 04:00 Room Air 05/08/18 00:00 98.7 105 22 160/70 (100) 98 05/08/18 00:00 Room Air 05/08/18 00:00 96 05/07/18 23:47 80 198/100 05/07/18 20:00 99.1 93 16 172/90 (117) 100 05/07/18 20:00 Room Air 05/07/18 20:00 91 05/07/18 18:30 Room Air 05/07/18 17:33 98.0 94 16 154/59 100 Room Air 05/07/18 15:44 98.0 114 18 152/53 100 Room Air 100 Intake and Output 05/07/18 05/08/18 19:00 07:00 Intake Total 200 ml 980 ml Balance 200 ml 980 ml Intake Oral 200 ml 480 ml IV Total 500 ml # Bowel Movements 4 Laboratory Tests 05/07/18 19:35: Lactic Acid Level 1.00 05/08/18 03:35: White Blood Count 7.0, Red Blood Count 4.17L, Hemoglobin 11.9L, Hematocrit 36.5L , Mean Corpuscular Volume 87, Mean Corpuscular Hemoglobin 28.6, Mean Corpuscular Hemoglobin Concent 32.7, Red Cell Distribution Width 15.1H, Platelet Count 233, Mean Platelet Volume 6.8, Neutrophils (%) (Auto) , Lymphocytes (%) (Auto) , Monocytes (%) (Auto) , Eosinophils (%) (Auto) , Basophils (%) (Auto) , Sodium Level 129L, Potassium Level 5.4H, Chloride Level 91L, Carbon Dioxide Level 20L, Anion Gap 18H, Blood Urea Nitrogen 53H, Creatinine 8.5H, Estimat Glomerular Filtration Rate 6.4, Glucose Level 149#H, Calcium Level 8.8, Phosphorus Level 3.2 Height (Feet): 5 Height (Inches): 7.00 Weight (Pounds): 160 Objective Cv RR Lungs CTA Abd SNT. BS + E No CCE. ROSALEE AVF aneurysmaic + hematoma Sergio Ellis MD May 08, 2018 13:59
[2018-05-08 16:00] VITALS: BP 179/97
[2018-05-08 20:00] VITALS: BP 161/89
[2018-05-09] VITALS: BP 147/87
[2018-05-09 04:00] VITALS: BP 158/88
[2018-05-09] MEDS: Calcium Acetate 667mg Tab ORAL SCH ×3 (06:22→16:30)
[2018-05-09 08:00] VITALS: BP 148/82
[2018-05-09] MEDS: Docusate 100mg cap ORAL SCH ×2 (08:47→20:55)
[2018-05-09] MEDS: Heparin 5000 units/ml inj SUBQ SCH ×2 (08:48→21:02)
[2018-05-09 12:00] VITALS: BP 151/83
[2018-05-09] MEDS ORDERED: Heparin Sod 1000 units/ml 10ml IV PRN ×2 (13:00→20:45)
--- NOTE | 2018-05-09 14:22 | Nephrology Progress Note ---
Assessment/Plan Plan Hypoglycemia - on IVF with dextrose - taper off. 107. ESRD - TTS Aneurysm of AVF - Vasc. Sx Eval Still hypoglycemic despite IV dextrose. Taper IV dextrose. Ecourage oral intake. Subjective Subjective More alert. Objective Objective Last 24 Hour Vital Signs Date Time Temp Pulse Resp B/P (MAP) Pulse Ox O2 Delivery O2 Flow Rate FiO2 05/09/18 12:00 79 05/09/18 12:00 Room Air 05/09/18 12:00 98.6 80 21 151/83 (105) 98 05/09/18 09:55 83 16 Room Air 21 05/09/18 08:47 87 148/82 05/09/18 08:00 86 05/09/18 08:00 Room Air 05/09/18 08:00 99.4 87 20 148/82 (104) 96 05/09/18 06:53 99.0 05/09/18 04:00 99.6 88 20 158/88 (111) 97 05/09/18 04:00 84 05/09/18 04:00 Room Air 05/09/18 00:00 Room Air 05/09/18 00:00 98.4 80 20 147/87 (107) 97 05/09/18 00:00 82 05/08/18 20:33 97 161/89 05/08/18 20:00 97 05/08/18 20:00 Room Air 05/08/18 20:00 99.3 97 18 161/89 (113) 97 05/08/18 16:00 Room Air 05/08/18 16:00 98.1 98 18 179/97 (124) 95 05/08/18 16:00 99 Intake and Output 05/08/18 05/09/18 19:00 07:00 Intake Total 1280 ml 810 ml Output Total 2500 ml Balance -1220 ml 810 ml Intake Oral 880 ml 480 ml IV Total 400 ml 330 ml Output Hemodialysis UF 2500 ml # Bowel Movements 2 2 Height (Feet): 5 Height (Inches): 7.00 Weight (Pounds): 136 Objective Cv RR Lungs CTA Abd SNT. BS + E No CCE. ROSALEE AVF aneurysmaic + hematoma Sergio Ellis MD May 09, 2018 14:22
[2018-05-09] MEDS: D5 1/2NS 1,000 ML IV SCH (14:23)
[2018-05-09] MEDS ORDERED: D5 1/2NS 1000ml IV ONE (15:18)
[2018-05-09] MEDS ORDERED: Tubing IV Secondary IV ONE (15:18)
[2018-05-09 16:00] VITALS: BP 170/87
[2018-05-09 20:30] VITALS: BP 168/98
[2018-05-09] MEDS ORDERED: D5 1/2NS 1,000 ML IV SCH (20:45)
[2018-05-09] MEDS ORDERED: Albuterol/Ipratropium 3ml neb HHN PRN (21:00)
--- NOTE | 2018-05-09 23:05 | General Progress Note ---
Progress Note Progress Note Patient seen and examined Admitted with altered mental status Hx of alcohol abuse HD via left arm cephalic vein avf--aneurysmal diffuse chronic with no ulceration no bleeding Rec HD via left arm avf---use normal skin and avoid aneurysmal segment Will benefit from detox alcohol rehab/ snf Psych & neurology eval---high risk of delirium cee d/w pt's nurse Antonio Rodriguez MD May 09, 2018 23:05
[2018-05-10] VITALS: BP 150/84
[2018-05-10 04:00] VITALS: BP 144/80
[2018-05-10] MEDS: Calcium Acetate 667mg Tab ORAL SCH ×3 (05:42→16:56)
[2018-05-10 06:53] LABS: HEMATOCRIT 36.3 % (42.0-52.0); HEMOGLOBIN 11.7 G/DL (14.2-18.0); MEAN CORPUSCULAR VOLUME 87 FL (80-99); PLATELET COUNT 167 K/UL (150-450); RED BLOOD COUNT 4.17 M/UL (4.70-6.10); RED CELL DISTRIBUTION WIDTH 14.8 % (11.6-14.8); WHITE BLOOD COUNT 5.4 K/UL (4.8-10.8)
[2018-05-10 07:25] LABS: ALANINE AMINOTRANSFERASE 15 U/L (12-78); ALBUMIN 3.1 G/DL (3.4-5.0); ALBUMIN/GLOBULIN RATIO 0.7 (1.0-2.7); ALKALINE PHOSPHATASE 125 U/L (46-116); ANION GAP 15 mmol/L (5-15); ASPARTATE AMINO TRANSFERASE 33 U/L (15-37); BILIRUBIN,TOTAL 0.8 MG/DL (0.2-1.0); BLOOD UREA NITROGEN 54 mg/dL (7-18); CARBON DIOXIDE 22 MMOL/L (21-32); CHLORIDE 90 MMOL/L (98-107); CREATININE 9.3 MG/DL (0.55-1.30); PHOSPHORUS 5.8 MG/DL (2.5-4.9); POTASSIUM 5.2 MMOL/L (3.5-5.1); SODIUM 127 MMOL/L (136-145)
[2018-05-10 08:00] VITALS: BP 157/87
[2018-05-10] MEDS: Docusate 100mg cap ORAL SCH ×2 (08:49→20:19)
[2018-05-10] MEDS: Heparin 5000 units/ml inj SUBQ SCH ×2 (08:54→20:21)
--- NOTE | 2018-05-10 11:49 | Diagnostic Imaging Report ---
Indication:Abdominal pain Technique: Grayscale and duplex Doppler imaging of the abdomen performed. Comparison: None Findings: Liver measures about 18 cm. Gallbladder wall thickening is present. There is a small amount of pericholecystic fluid. No obvious gallstones identified. Kidneys are echogenic consistent medical renal disease. There are multiple cysts present within the kidneys. No hydronephrosis demonstrated. Previous CT from 03/15/2018 demonstrated a large left renal hematoma. This is not appreciated on the current study and may have largely resolved. Suggest follow-up CT in this regard as the ultrasound evaluation may underestimate the presence of a residual hematoma on this exam. The main portal vein is patent by Doppler exam. The visualized part of the pancreas is unremarkable. CBD measures 3.3 mm. IMPRESSION: No obvious left renal hematoma demonstrated currently. Large hematoma was noted on previous CT 03/15/2018. Suggest follow-up CT for evaluation of residual hematoma. Gallbladder wall thickening nonspecific. Mild hepatomegaly. Medical renal disease.
[2018-05-10 12:00] VITALS: BP 148/86
--- NOTE | 2018-05-10 15:59 | Diagnostic Imaging Report ---
APPROVED REPORT CPT Code: 49455 Present Symptoms Comments: Hx of Dialysis Bleeding LEFT UPPER EXTREMITY: Imaging reveals patency of the arterio-venous fistula, the brachial artery to the cephalic vein, at the upper arm level. The venous outflow is widely patent. Elevated velocity (445 cm/s ) noted at the anastomosis site. The arterio-venous fistula enlarging to near arterial anastomosis (two puncture sites), one is (2.8 cm x 2.7 cm) and (3.7 cm x 4.0 cm). There is no evidence of pseudo-aneurysm or hematoma. Proximal brachial artery: 279 cm/s Proximal AVF: 1.3 cm, 44 cm/s Mid AVF: 1.4 cm, 79 cm/s Arterial anastomosis: 0.5 cm, 445 cm/s Brachial artery: distal 112 cm/s
[2018-05-10 16:00] VITALS: BP 168/88
--- NOTE | 2018-05-10 16:57 | Nephrology Progress Note ---
Assessment/Plan Plan Hypoglycemia - on IVF with dextrose - taper off. 107. ESRD - TTS Aneurysm of AVF - Vasc. Sx Eval Still hypoglycemic despite IV dextrose. Taper IV dextrose. Suspect advancing dementia! Neuro consult pending. See orders. Subjective Subjective Not eating at all! Objective Objective Last 24 Hour Vital Signs Date Time Temp Pulse Resp B/P (MAP) Pulse Ox O2 Delivery O2 Flow Rate FiO2 05/10/18 12:00 98.1 81 20 148/86 (106) 97 05/10/18 09:00 Room Air 05/10/18 08:50 81 157/82 05/10/18 08:00 97.7 81 20 157/87 (110) 97 05/10/18 07:46 78 16 Room Air 21 05/10/18 04:00 98.7 79 18 144/80 (101) 97 05/10/18 00:00 98.7 82 17 150/84 (106) 97 05/09/18 21:40 99.6 05/09/18 21:40 99.6 05/09/18 21:00 Room Air 05/09/18 20:56 86 168/98 05/09/18 20:30 100.5 86 20 168/98 (121) 98 05/09/18 20:14 80 16 Room Air 21 Intake and Output 05/09/18 05/10/18 19:00 07:00 Intake Total 815 ml 420 ml Balance 815 ml 420 ml Intake Oral 500 ml 120 ml IV Total 315 ml 300 ml # Bowel Movements 5 Laboratory Tests 05/10/18 06:05: White Blood Count 5.4, Red Blood Count 4.17L, Hemoglobin 11.7L, Hematocrit 36.3L , Mean Corpuscular Volume 87, Mean Corpuscular Hemoglobin 28.0, Mean Corpuscular Hemoglobin Concent 32.2, Red Cell Distribution Width 14.8, Platelet Count 167, Mean Platelet Volume 8.2, Neutrophils (%) (Auto) , Lymphocytes (%) ( Auto) , Monocytes (%) (Auto) , Eosinophils (%) (Auto) , Basophils (%) (Auto) , Differential Total Cells Counted 100, Neutrophils % (Manual) 80H, Lymphocytes % (Manual) 7L, Monocytes % (Manual) 5, Eosinophils % (Manual) 0, Basophils % ( Manual) 0, Band Neutrophils 8, Platelet Estimate Adequate, Platelet Morphology Normal, Anisocytosis 1+, Sodium Level 127L, Potassium Level 5.2H, Chloride Level 90L, Carbon Dioxide Level 22, Anion Gap 15, Blood Urea Nitrogen 54H, Creatinine 9.3H, Estimat Glomerular Filtration Rate 5.8, Glucose Level 101, Calcium Level 8.0L, Phosphorus Level 5.8H, Total Bilirubin 0.8, Aspartate Amino Transf (AST/SGOT) 33, Alanine Aminotransferase (ALT/SGPT) 15, Alkaline Phosphatase 125H, Total Protein 7.8, Albumin 3.1L, Globulin 4.7, Albumin/ Globulin Ratio 0.7L Height (Feet): 5 Height (Inches): 7.00 Weight (Pounds): 131 Objective Cachectic Cv RR Lungs CTA Abd SNT. BS + E No CCE. ROSALEE AVF aneurysmatic + hematoma Sergio Ellis MD May 10, 2018 16:57
[2018-05-10] MEDS: D5NS 1,000 ML IV SCH (17:33)
--- NOTE | 2018-05-10 18:37 | Consultation ---
Consult Note Consult Note NEUROLOGY CONSULTATION: Full note dictated #[id number] 62 y/o, RH, HM with PH of HTN, DM, GERD, alcoholism and ESRD on HD. He was hospitalized on 05/07/18 for AMS. On evaluation he was found to have a BS in the 30s and had alcohol in his system. He had been imbibing large quantities of alcohol and had not been eating well over the weekend. ON EXAM: Disoriented to place & date. M 3/3-0, 0/3-1 & 3 Trump only Math /VS impaired. No focal dysfunction Position decreased in toes. Globally diminished DTRs Wide based stance with wide based unsteady gait. IMPRESSION: 1. Severe amnesia with other global cognitive impairment. 2. Posterior column neuropathy REC: Labs for cognitive dysfunction. After labs are drawn - thiamine 100 mg IV and B 12 - 1000 mcg SC EEG Prevent hypoglycemia. STOP ETOH. Jurgen Jurado M.D., M.S.P.H. Jurgen Jurado MD May 10, 2018 18:37
[2018-05-10 20:00] VITALS: BP 159/81
[2018-05-10] MEDS ORDERED: Vitamin B12 1000mcg/ml Inj SUBQ ONE (20:00)
[2018-05-10] MEDS ORDERED: Thiamine HCl 100 MG in D5W 55 ML IVPB ONE (20:00)
--- NOTE | 2018-05-10 21:30 | Consultation ---
DATE OF CONSULTATION: 05/10/2018 NEUROLOGY CONSULTATION CONSULTING PHYSICIAN: Jurgen Jurado M.D. REQUESTING PHYSICIAN: Sergio Ellis M.D. HISTORY: Mr. Aleksandra Henderson is a 62-year-old, right-handed, gentleman, who does have a past history of hypertension, diabetes mellitus, gastroesophageal reflux disease, alcoholism, and end-stage renal disease for which he has been hemodialysis dependent. He was hospitalized on May 07, 2018 for an alteration in his mental state. The exact details of this are unknown to us. He, on evaluation, was found to have a blood sugar in the 30s and had alcohol in his system more than 1 day after his last drink. He had apparently been imbibing large quantities of alcohol and had not been eating well over the weekend. He himself is quite oblivious of what happened. He denies any weakness on one side or the other, numbness on one side or the other, problems with speech, problems with language, problems with vision, or problems with his memory. PAST MEDICAL HISTORY: Significant for hypertension, diabetes mellitus, gastroesophageal reflux disease, alcoholism, and end-stage renal disease for which he is hemodialysis dependent. FAMILY HISTORY: Significant for high blood pressure in other family members. PERSONAL HISTORY: Home: He lives with his . 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 He is now disabled. Habit: He used to smoke in the past, but is not smoking now. He does, however, drink alcohol whenever he can get it. His drink of choice is Tequila. There is no history of any illicit drug use. PRESENT MEDICATIONS: Pepcid, PhosLo, Tylenol p.r.n., Colace, DuoNeb inhaler, heparin for DVT prophylaxis, labetalol, and Zofran p.r.n. PHYSICAL EXAMINATION: GENERAL: He is a well-developed relatively well-nourished, gentleman, sitting up in a chair, in no acute distress. VITAL SIGNS: Pulse 86/minute, blood pressure 168/88 mmHg, respirations 20/minute, temperature 98 degrees Fahrenheit. HEAD: Normocephalic and atraumatic. EENT: Examination benign. NECK: No neck rigidity was observed. NEUROLOGIC EXAMINATION: MENTAL STATUS EXAMINATION: He was awake and alert. He was oriented to self. He thought he was at [facility]. He knew it was May 2018, but did not know the exact date. He was able to recall 3/3 words immediately, but could not remember any of them in 1 minute and 3 minutes even on the third trial. He knew that Annie is President, but could not remember Presidents prior to that. His mathematical skills were impaired. His visuospatial function was also impaired. SPEECH: He had no dysarthria. LANGUAGE: He was able to comprehend and express himself relatively well. CRANIAL NERVE EXAMINATION: II: The visual bond were intact on confrontation testing. III, IV & : The external ocular movements were full and the pupils 3 mm in diameter, equal, round, regular, and reactive to light. V: He had normal facial sensations and the temporales, masseters, and pterygoids functioned normally. VII: He had normal facial expressions and no facial asymmetry. VIII: He was able to hear well bilaterally and had no nystagmus. IX: The palate moved symmetrically on phonation. X: He had no hoarseness of voice. XI: The sternocleidomastoids and trapezii functioned normally. XII: The tongue was in the midline without any fasciculations or atrophy. MOTOR SYSTEM: The tone was normal in all four extremities. Examination of muscle mass revealed no focal wasting. Examination of power revealed G 5/5 power in all muscle groups tested. SENSORY EXAMINATION: He had intact sensations to pinprick and light touch, but complained of subjective alteration in the distal lower extremities. Position sense was normal in the fingers bilaterally, but was diminished in the toes bilaterally. REFLEXES: Trace+ and bilaterally symmetrical at the biceps, triceps, brachioradialis, and knees, 0 at both ankles. The plantar responses were flexor bilaterally. STANCE: He stood up with a wide base and needed support to stand up. GAIT: He walked with a wide-based unsteady gait with support. DIAGNOSTIC IMPRESSION: 1. Mr. Aleksandra Henderson is a 62-year-old, right-handed, gentleman, who has a long history of hypertension, diabetes mellitus, gastroesophageal reflux disease, alcoholism, and end-stage renal disease, who was hospitalized for an alteration in his mental state on 05/07/2018. Prior to that, he had been imbibing large quantities of alcohol and not eating well. When he was evaluated in the emergency room, his blood sugars were in the 30s and he had alcohol in his system more than 24 hours after he had stopped drinking. 2. Since he has been here, he has improved, but continues to have significant problems with cognition. 3. At this point in time, he is disoriented to where he is and what the exact date is. His recent memory is exceedingly poor with inability to remember any of the 3 words in 1 and 3 minutes even on the third trial. His remote memory is also significantly altered with him remembering only 1 president. He also has problems with mathematical skills and visuospatial function. He, however, does not demonstrate any focal or lateralizing neurological findings. Altered sensations are present in both his lower extremities and his position sense is decreased in the toes, but normal in the fingers. His deep tendon reflexes are globally diminished with absent ankle jerks. He stands with a wide base and walks with a wide-based unsteady gait. 4. His latest laboratory data revealed that he is mildly anemic with a hemoglobin of 11.7 G. His latest chemistry panel reveals a sodium, which is low at 127, chloride that is low at 90, potassium that is elevated at 5.2, BUN elevated at 54 with a creatinine of 9.3, low calcium at 8.0, an alkaline phosphatase elevated at 125, and a low albumin of 3.1. When the patient came in, his blood glucose was measured at 38. His toxicology screen on his admission revealed a serum alcohol of 32. 5. The patient's history, neurological examination, and laboratory data are most compatible with severe amnesia with other global cognitive impairment most probably related to an encephalopathy due to alcohol use and possibly hypoglycemia. 6. The patient also has a neuropathic process with significant posterior column dysfunction causing the unsteady gait. RECOMMENDATIONS: 1. Agree with management thus far. 2. The patient should be worked up thoroughly for other treatable causes of cognitive dysfunction, with in addition to the laboratory tests already done, a B12 level, folate level, vitamin D level, ESR, RPR, glycohemoglobin, Westergren sedimentation rate, and TSH. 3. After the patient's blood has been drawn for laboratory tests, he should get thiamine 100 mg intravenously and vitamin B12 1000 mcg subcutaneously. 4. An EEG will be ordered to evaluate the patient for the degree and type of cerebral dysfunction. 5. Attempts should be made to prevent hypoglycemia in the future. 6. The patient was advised to stop drinking alcohol immediately. 7. The patient will be observed closely and depending on how he fares, further recommendations will be given. Thank you for entrusting me with the care of Mr. Tong Henderson. I shall follow him with you. Jurgen Jurado M.D., M.S.P.H. [place]
[2018-05-11] VITALS: BP 152/84
[2018-05-11 04:00] VITALS: BP 151/62
[2018-05-11] MEDS: Calcium Acetate 667mg Tab ORAL SCH ×3 (06:11→16:43)
[2018-05-11 08:00] VITALS: BP 151/82
[2018-05-11] MEDS: Docusate 100mg cap ORAL SCH ×2 (09:02→20:36)
[2018-05-11] MEDS: Heparin 5000 units/ml inj SUBQ SCH ×2 (09:05→20:36)
--- NOTE | 2018-05-11 10:11 | Neurology Progress Note ---
Interim History Interim History Interim History Mr. Tong Henderson feels better today. He slept well last night. He is eating well. He feels that his memory is improving. He denies any new neurologic symptoms. He was getting his EEG done when I went to see him. Review of Systems Neuro Review of Systems Benign. Objective Physical Exam Last Vital Signs Date Time Temp Pulse Resp B/P (MAP) Pulse Ox O2 Delivery O2 Flow Rate FiO2 05/11/18 09:02 82 151/82 05/11/18 08:00 97.2 20 100 05/10/18 21:00 Room Air 05/10/18 20:30 21 Laboratory Tests Test 05/10/18 19:15 Erythrocyte Sedimentation Rate 53 MM/HR (0-20) H Hemoglobin A1c 5.0 % (4.3-6.0) Ammonia 17 umol/L (11-32) Total Protein (PEP) Pending Albumin (PEP) Pending Globulin (PEP) Pending Albumin/Globulin Ratio Pending Klabc-1-Djzljjtoz Pending Vykxh-4-Ztsvjzefx Pending Beta Globulins Pending Beta Gamma Globulin Pending PEP Abnormal Protein Bands Pending Protein Electrophoresis Interpret Pending Vitamin B12 Level 599 PG/ML (193-986) Vitamin D 25-Hydroxy Pending 25-Hydroxy Vitamin D2 Pending 25-Hydroxy Vitamin D3 Pending Folate 7.6 NG/ML (8.6-58.9) L Thyroid Stimulating Hormone (TSH) 0.571 uiU/mL (0.358-3.740) Rapid Plasma Reagin Pending Neurologic Exam Objective PHYSICAL EXAMINATION: GENERAL: He is a well-developed relatively well-nourished, gentleman, sitting up in a chair, in no acute distress. HEAD: Normocephalic and atraumatic. EENT: Examination benign. NECK: No neck rigidity was observed. NEUROLOGIC EXAMINATION: MENTAL STATUS EXAMINATION: He was awake and alert. He was oriented to self. He did not know the name of the hospital. He knew it was May 2018, but did not know the exact date. He was able to recall 3/3 words immediately, but only remember 2/3 in 1 and 3 minutes. He knew that Trump is President, but could not remember Presidents prior to that. His mathematical skills were impaired. His visuospatial function was also impaired. SPEECH: He had no dysarthria. LANGUAGE: He was able to comprehend and express himself relatively well. CRANIAL NERVE EXAMINATION: II: The visual bond were intact on confrontation testing. III, IV & : The external ocular movements were full and the pupils 3 mm in diameter, equal, round, regular, and reactive to light. V: He had normal facial sensations and the temporales, masseters, and pterygoids functioned normally. VII: He had normal facial expressions and no facial asymmetry. VIII: He was able to hear well bilaterally and had no nystagmus. IX: The palate moved symmetrically on phonation. X: He had no hoarseness of voice. XI: The sternocleidomastoids and trapezii functioned normally. XII: The tongue was in the midline without any fasciculations or atrophy. MOTOR SYSTEM: The tone was normal in all four extremities. Examination of muscle mass revealed no focal wasting. Examination of power revealed G 5/5 power in all muscle groups tested. SENSORY EXAMINATION: He had intact sensations to pinprick and light touch, but complained of subjective alteration in the distal lower extremities. Position sense was normal in the fingers bilaterally, but was diminished in the toes bilaterally. REFLEXES: Trace+ and bilaterally symmetrical at the biceps, triceps, brachioradialis, and knees, 0 at both ankles. The plantar responses were flexor bilaterally. STANCE: He stood up with a wide base and needed support to stand up. GAIT: He walked with a wide-based unsteady gait with support. Impression/Recommendations Diagnostic Impression 1. Mr. Aleksandra Henderson is a 62-year-old, right-handed, gentleman , who has a long history of hypertension, diabetes mellitus, gastroesophageal reflux disease, alcoholism, and end-stage renal disease, who was hospitalized for an alteration in his mental state on 05/07/2018. Prior to that, he had been imbibing large quantities of alcohol and not eating well. When he was evaluated in the emergency room, his blood sugars were in the 30s and he had alcohol in his system more than 24 hours after he had stopped drinking. 2. Since he has been hospitalized, he has improved, but continues to have significant problems with cognition. 3. He feels better today. He slept well last night. He is eating well. He feels that his memory is improving. He denies any new neurologic symptoms. He was getting his EEG done when I went to see him. 4. At this point in time, he is disoriented to where he is and what the exact date is. His recent memory is better. His remote memory continues to be impaired with him remembering only 1 president. He also has problems with mathematical skills and visuospatial function. He, however, does not demonstrate any focal or lateralizing neurological findings. Altered sensations are present in both his lower extremities and his position sense is decreased in the toes, but normal in the fingers. His deep tendon reflexes are globally diminished with absent ankle jerks. He stands with a wide base and walks with a wide-based unsteady gait. 5. His laboratory data on my initial evaluation revealed that he is mildly anemic with a hemoglobin of 11.7 G. His latest chemistry panel revealed a sodium low at 127, chloride low at 90, potassium elevated at 5.2, BUN elevated at 54 with a creatinine of 9.3, low calcium at 8.0, an alkaline phosphatase elevated at 125, and a low albumin of 3.1. When the patient came in, his blood glucose was measured at 38. His toxicology screen on his admission revealed a serum alcohol of 32. 6. Further laboratory test have revealed a low Folic acid level. 7. The patient's history, neurological examination, and laboratory data are most compatible with severe amnesia with other global cognitive impairment most probably related to an encephalopathy due to alcohol use and possibly hypoglycemia. 8. The patient also has a neuropathic process with significant posterior column dysfunction causing the unsteady gait. 9. He was given IV Thiamine and SC Vitamin B 12 yesterday and his cognitive function has improved. Recommendations 1. Continue present management. 2. Folic acid 1 mg PO q day for deficiency. 3. Will review EEG which was just finished. 4. Attempts should be made to prevent hypoglycemia in the future. 5. The patient was again made aware of the ills of alcohol and advised to stop drinking alcohol immediately. 6. Observed closely. Jurgen Jurado M.D., M.S.P.H. Jurgen Jurado MD May 11, 2018 10:11
[2018-05-11 12:00] VITALS: BP 156/78
[2018-05-11] MEDS: D5NS 1,000 ML IV SCH (12:04)
[2018-05-11] MEDS ORDERED: D5 1/2NS 1000ml IV ONE (14:05)
--- NOTE | 2018-05-11 14:58 | Diagnostic Imaging Report ---
Indication: Altered mental status Technique: Contiguous 5 mm thick transaxial imaging of the head obtained in a Siemens Sensation [address] scanner. Soft tissue and bone windows generated. Automatic Exposure Control was utilized. Total Dose length Product (DLP): 1495.[address] Dose Index Volume (CTDIvol): 70.38 mGy Comparison: none Findings: There is moderate prominence of the ventricles, basal cisterns, and cerebral sulci consistent with atrophy. Moderate, nonspecific, white matter hypoattenuation is noted throughout the brain consistent with chronic small vessel disease. There is no midline shift, edema, acute hemorrhage, mass effect, or abnormal extra-axial fluid collections. Bones and extra osseous soft tissues are unremarkable. Impression: No acute intracranial bleed, mass effect or edema. Moderate atrophy of the brain. Evidence of chronic small vessel disease involving white matter tracts. The CT scanner at [facility] is accredited by the [employer] and the scans are performed using dose optimization techniques as appropriate to a performed exam including Automatic Exposure control.
--- NOTE | 2018-05-11 15:36 | Nephrology Progress Note ---
Assessment/Plan Plan Hypoglycemia - on IVF with dextrose. ESRD - TTS Alcoholic Hepatopathy. Alcoholic Encephalopathy with advanced Dementia. Poor Prognosis. Functional Decline. Needs SNF! Needs PEG. Subjective Subjective Still confused. Poor apetite. Calorie count ongoing. Objective Objective Last 24 Hour Vital Signs Date Time Temp Pulse Resp B/P (MAP) Pulse Ox O2 Delivery O2 Flow Rate FiO2 05/11/18 12:00 97.7 79 20 156/78 (104) 99 05/11/18 09:36 78 20 Room Air 21 05/11/18 09:02 82 151/82 05/11/18 09:00 Room Air 05/11/18 08:00 97.2 82 20 151/82 (105) 100 05/11/18 04:00 98.2 78 17 151/62 (91) 100 05/11/18 00:00 98.1 84 16 152/84 (106) 98 05/10/18 21:00 Room Air 05/10/18 20:30 79 18 Room Air 21 05/10/18 20:18 87 159/81 05/10/18 20:00 98.6 87 18 159/81 (107) 99 05/10/18 16:00 98.0 86 20 168/88 (114) 97 Intake and Output 05/10/18 05/11/18 19:00 07:00 Intake Total 540 ml 76 ml Output Total 2000 ml Balance -1460 ml 76 ml Intake Oral 240 ml IV Total 300 ml 76 ml Hemodialysis UF 2000 ml # Voids 2 # Bowel Movements 5 1 Laboratory Tests 05/10/18 19:15: Erythrocyte Sedimentation Rate 53H, Hemoglobin A1c 5.0, Ammonia 17, Total Protein (PEP) [Pending], Albumin (PEP) [Pending], Globulin (PEP) [Pending], Albumin/Globulin Ratio [Pending], Aqbai-4-Isdmeusey [Pending], Alpha-2- Globulins [Pending], Beta Globulins [Pending], Beta Gamma Globulin [Pending], PEP Abnormal Protein Bands [Pending], Protein Electrophoresis Interpret [Pending ], Vitamin B12 Level 599, Vitamin D 25-Hydroxy [Pending], 25-Hydroxy Vitamin D2 [Pending], 25-Hydroxy Vitamin D3 [Pending], Folate 7.6L, Thyroid Stimulating Hormone (TSH) 0.571, Rapid Plasma Reagin [Pending] Height (Feet): 5 Height (Inches): 7.00 Weight (Pounds): 128 Objective Cachectic Cv RR Lungs CTA Abd SNT. BS + E No CCE. ROSALEE AVF aneurysmatic + hematoma Sergio Ellis MD May 11, 2018 15:36
[2018-05-11] MEDS ORDERED: Heparin Sod 1000 units/ml 10ml IV PRN (15:41)
[2018-05-11 16:00] VITALS: BP 155/78
--- NOTE | 2018-05-11 16:45 | Electroencephalogram ---
DATE OF PROCEDURE: 05/11/2018 REQUESTING PHYSICIAN: Sergio Ellis M.D. READING PHYSICIAN: Jurgen Jurado M.D. PROCEDURE PERFORMED: EEG. HISTORY: This EEG was performed on a 62-year-old gentleman with a history of alcoholism, diabetes mellitus, hypertension, and end-stage renal disease who was hospitalized for an alteration in his mental state. When he came in, he was significantly hypoglycemic and had alcohol in his system more than 24 hours after he had stopped drinking. The purpose of this EEG was to evaluate the patient for the degree and type of cerebral dysfunction. TECHNICAL NOTE: This EEG was performed on a [employer] Unit with electrodes placed on the scalp according to the International 10-20 system. [id number]-[id number] and xxwye-vu-[id number] montages were used. The EEG was technically satisfactory and was performed in the awake, drowsy, and sleep states. OBSERVATIONS: In the best awake state, the background activity consisted of 8.5-9 Hz, posteriorly predominant, well-developed, alpha, waveforms, which attenuated on eye opening. Drowsiness was characterized by dissolution of the alpha rhythm and the appearance of slower frequencies in the 5-6 Hz theta range. Stage II sleep was characterized by further slowing of the background in the delta and theta range, the presence of vertex waves, and 12-14 Hz sleep spindles. Photic stimulation was performed at various different frequencies and produced no abnormalities. No focal abnormalities or epileptiform discharges were seen. IMPRESSION: Normal awake, drowsy, and stage II sleep EEG. Jurgen Jurado M.D., M.S.P.H. DR: LOUIS JOB#: [id number] [place]
[2018-05-11 20:00] VITALS: BP 164/88
--- NOTE | 2018-05-11 22:30 | Consultation ---
DATE OF CONSULTATION: 05/09/2018 VASCULAR SURGERY CONSULTATION CONSULTING PHYSICIAN: Antonio Rodriguez M.D. REFERRING PHYSICIAN: Sergio Ellis M.D. REASON FOR EVALUATION: Aneurysmal left arm AV shunt. HISTORY OF PRESENT ILLNESS: The patient is a 62-year-old male who presented with nausea and vomiting. The patient is an alcoholic, drinks on a daily basis. He is noncompliant and has a left cephalic vein AV shunt, which is aneurysmal diffusely for many years. He has been dialyzed with AV shunt without difficulty. Vascular Surgery is consulted for further evaluation. PAST MEDICAL HISTORY: As above. History of alcohol abuse; end-stage renal failure, on hemodialysis; hypertensive cardiovascular disease; noncompliance; diabetes mellitus; left cephalic vein AV shunt; and gastroesophageal reflux disease. MEDICATIONS: See attached MAR. ALLERGIES: No known drug allergies. SOCIAL HISTORY: No history of smoking or drugs. He is a heavy drinker. FAMILY HISTORY: Unremarkable. SYSTEM REVIEW: CARDIOVASCULAR: No chest pain or palpitations. PULMONARY: No cough. No hemoptysis. GASTROINTESTINAL: No history of abdominal pain, constipation, or diarrhea. GENITOURINARY: No dysuria, frequency, or urgency. NEUROLOGIC: No history of strokes or seizures PHYSICAL EXAMINATION: GENERAL: The patient is awake and alert. VITAL SIGNS: The patient is afebrile, temperature 97, heart rate 100, blood pressure 150/53, and respirations 16. The patient has cephalic vein AV shunt on the left arm, which is diffusely aneurysmal. SKIN: No skin ulceration. No edema. LUNGS: Clear to auscultation. HEART: Regular rate and rhythm. ABDOMEN: Soft and nontender. EXTREMITIES: He has palpable femoral pulses. Intact pedal pulses bilaterally. LABORATORY DATA: Revealed a BUN of 37 and creatinine 6.9. IMPRESSION: 1. 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 2. Admitted with nausea, vomiting, and low blood sugar due to alcoholism. 3. History of hypertensive cardiovascular disease, noncompliance, diabetes mellitus, and gastroesophageal reflux disease. PLAN OF ACTION: 1. Continue dialysis through the left arm AV shunt. He has normal skin. 2. The patient will strongly benefit from alcoholic rehabilitation. 3. Medical optimization in progress. Antonio Rodriguez M.D. DR: LEANNA JOB#: [id number] CC:
[2018-05-12] VITALS: BP 155/88
[2018-05-12 04:00] VITALS: BP 106/84
[2018-05-12] MEDS: Calcium Acetate 667mg Tab ORAL SCH ×3 (06:29→17:19)
[2018-05-12 07:02] LABS: BASOPHILS % (AUTO) 0.7 % (0.0-2.0); EOSINOPHILS % (AUTO) 0.5 % (0.0-3.0); HEMOGLOBIN 11.3 G/DL (14.2-18.0); LYMPHOCYTES % (AUTO) 16.6 % (20.0-45.0); MEAN CORPUSCULAR VOLUME 88 FL (80-99); MONOCYTES % (AUTO) 9.9 % (1.0-10.0); NEUTROPHILS % (AUTO) 72.3 % (45.0-75.0); PLATELET COUNT 157 K/UL (150-450); RED BLOOD COUNT 3.99 M/UL (4.70-6.10); RED CELL DISTRIBUTION WIDTH 15.5 % (11.6-14.8); WHITE BLOOD COUNT 3.6 K/UL (4.8-10.8)
[2018-05-12 07:06] LABS: ALANINE AMINOTRANSFERASE 23 U/L (12-78); ALBUMIN/GLOBULIN RATIO 0.7 (1.0-2.7); ALKALINE PHOSPHATASE 125 U/L (46-116); ANION GAP 13 mmol/L (5-15); ASPARTATE AMINO TRANSFERASE 30 U/L (15-37); BLOOD UREA NITROGEN 61 mg/dL (7-18); CALCIUM 8.5 MG/DL (8.5-10.1); CARBON DIOXIDE 26 MMOL/L (21-32); CHLORIDE 91 MMOL/L (98-107); CREATININE 9.6 MG/DL (0.55-1.30); POTASSIUM 4.1 MMOL/L (3.5-5.1); SODIUM 130 MMOL/L (136-145)
[2018-05-12 08:00] VITALS: BP 152/79
[2018-05-12] MEDS: Heparin 5000 units/ml inj SUBQ SCH ×2 (09:00→21:00)
--- NOTE | 2018-05-12 11:36 | Nephrology Progress Note ---
Assessment/Plan Plan Hypoglycemia - on IVF with dextrose. ESRD - TTS Alcoholic Hepatopathy. Alcoholic Encephalopathy with advanced Dementia. Poor Prognosis. Functional Decline. Needs SNF! Needs PEG. Subjective Subjective Still confused. Trying to leave AMA! Poor appetite. Calorie count ongoing. Objective Objective Last 24 Hour Vital Signs Date Time Temp Pulse Resp B/P (MAP) Pulse Ox O2 Delivery O2 Flow Rate FiO2 05/12/18 09:00 Room Air 05/12/18 08:00 98.6 80 19 152/79 (103) 100 05/12/18 04:00 97.8 82 18 106/84 (91) 05/12/18 00:00 98.3 83 18 155/88 (110) 05/11/18 21:44 Room Air 05/11/18 20:36 83 164/88 05/11/18 20:00 98.5 83 18 164/88 (113) 05/11/18 19:39 81 20 Room Air 21 05/11/18 16:00 98.2 78 20 155/78 (103) 100 05/11/18 12:00 97.7 79 20 156/78 (104) 99 Intake and Output 05/11/18 05/12/18 19:00 07:00 Intake Total 1320 ml 280 ml Output Total 900 ml Balance 420 ml 280 ml Intake Oral 1100 ml IV Total 220 ml 180 ml Other 100 ml Output Urine Total 900 ml # Bowel Movements 2 Laboratory Tests 05/12/18 05:15: White Blood Count 3.6L, Red Blood Count 3.99L, Hemoglobin 11.3L, Hematocrit 35.0L, Mean Corpuscular Volume 88, Mean Corpuscular Hemoglobin 28.3, Mean Corpuscular Hemoglobin Concent 32.3, Red Cell Distribution Width 15.5H, Platelet Count 157, Mean Platelet Volume 7.6, Neutrophils (%) (Auto) 72.3, Lymphocytes (%) (Auto) 16.6L, Monocytes (%) (Auto) 9.9, Eosinophils (%) (Auto) 0.5, Basophils (%) (Auto) 0.7, Sodium Level 130L, Potassium Level 4.1, Chloride Level 91L, Carbon Dioxide Level 26, Anion Gap 13, Blood Urea Nitrogen 61H, Creatinine 9.6H, Estimat Glomerular Filtration Rate 5.6, Glucose Level 96, Calcium Level 8.5, Phosphorus Level 4.0, Total Bilirubin 1.0, Aspartate Amino Transf (AST/SGOT) 30, Alanine Aminotransferase (ALT/SGPT) 23, Alkaline Phosphatase 125H, Total Protein 7.6, Albumin 3.0L, Globulin 4.6, Albumin/ Globulin Ratio 0.7L Height (Feet): 5 Height (Inches): 7.00 Weight (Pounds): 128 Objective Cachectic Cv RR Lungs CTA Abd SNT. BS + E No CCE. ROSALEE AVF aneurysmatic + hematoma Sergio Ellis MD May 12, 2018 11:36
[2018-05-12] MEDS: Docusate 100mg cap ORAL SCH ×2 (11:42→20:58)
[2018-05-12 12:00] VITALS: BP 185/98
--- NOTE | 2018-05-12 14:17 | Neurology Progress Note ---
Interim History Interim History Interim History Mr. Tong Henderson feels better. He is restless today. He says he slept well last night. He is eating well. He feels that his memory is improving. He denies any new neurologic symptoms. Review of Systems Neuro Review of Systems Benign. Objective Physical Exam Last Vital Signs Date Time Temp Pulse Resp B/P (MAP) Pulse Ox O2 Delivery O2 Flow Rate FiO2 05/12/18 12:00 97.7 84 20 185/98 (127) 100 05/12/18 09:00 Room Air 05/11/18 19:39 21 Laboratory Tests Test 05/12/18 05:15 White Blood Count 3.6 K/UL (4.8-10.8) L Red Blood Count 3.99 M/UL (4.70-6.10) L Hemoglobin 11.3 G/DL (14.2-18.0) L Hematocrit 35.0 % (42.0-52.0) L Mean Corpuscular Volume 88 FL (80-99) Mean Corpuscular Hemoglobin 28.3 PG (27.0-31.0) Mean Corpuscular Hemoglobin Concent 32.3 G/DL (32.0-36.0) Red Cell Distribution Width 15.5 % (11.6-14.8) H Platelet Count 157 K/UL (150-450) Mean Platelet Volume 7.6 FL (6.5-10.1) Neutrophils (%) (Auto) 72.3 % (45.0-75.0) Lymphocytes (%) (Auto) 16.6 % (20.0-45.0) L Monocytes (%) (Auto) 9.9 % (1.0-10.0) Eosinophils (%) (Auto) 0.5 % (0.0-3.0) Basophils (%) (Auto) 0.7 % (0.0-2.0) Sodium Level 130 MMOL/L (136-145) L Potassium Level 4.1 MMOL/L (3.5-5.1) Chloride Level 91 MMOL/L (98-107) L Carbon Dioxide Level 26 MMOL/L (21-32) Anion Gap 13 mmol/L (5-15) Blood Urea Nitrogen 61 mg/dL (7-18) H Creatinine 9.6 MG/DL (0.55-1.30) H Estimat Glomerular Filtration Rate 5.6 mL/min (>60) Glucose Level 96 MG/DL (74-106) Calcium Level 8.5 MG/DL (8.5-10.1) Phosphorus Level 4.0 MG/DL (2.5-4.9) Total Bilirubin 1.0 MG/DL (0.2-1.0) Aspartate Amino Transf (AST/SGOT) 30 U/L (15-37) Alanine Aminotransferase (ALT/SGPT) 23 U/L (12-78) Alkaline Phosphatase 125 U/L (46-116) H Total Protein 7.6 G/DL (6.4-8.2) Albumin 3.0 G/DL (3.4-5.0) L Globulin 4.6 g/dL Albumin/Globulin Ratio 0.7 (1.0-2.7) L Neurologic Exam Objective PHYSICAL EXAMINATION: GENERAL: He is a well-developed relatively well-nourished, gentleman, sitting up in bed, in no acute distress. HEAD: Normocephalic and atraumatic. EENT: Examination benign. NECK: No neck rigidity was observed. NEUROLOGIC EXAMINATION: MENTAL STATUS EXAMINATION: He was awake and alert. He was oriented to self. He did not know the name of the hospital. He knew it was May but did not know the exact date or year. He was able to recall 3/3 words immediately, but only remember 1/3 in 1 and 3 minutes. He knew that Annie is President, but could not remember Presidents prior to that. His mathematical skills were impaired. His visuospatial function was also impaired. SPEECH: He had no dysarthria. LANGUAGE: He was able to comprehend and express himself relatively well. CRANIAL NERVE EXAMINATION: II: The visual bond were intact on confrontation testing. III, IV & : The external ocular movements were full and the pupils 3 mm in diameter, equal, round, regular, and reactive to light. V: He had normal facial sensations and the temporales, masseters, and pterygoids functioned normally. VII: He had normal facial expressions and no facial asymmetry. VIII: He was able to hear well bilaterally and had no nystagmus. IX: The palate moved symmetrically on phonation. X: He had no hoarseness of voice. XI: The sternocleidomastoids and trapezii functioned normally. XII: The tongue was in the midline without any fasciculations or atrophy. MOTOR SYSTEM: The tone was normal in all four extremities. Examination of muscle mass revealed no focal wasting. Examination of power revealed G 5/5 power in all muscle groups tested. SENSORY EXAMINATION: He had intact sensations to pinprick and light touch, but complained of subjective alteration in the distal lower extremities. Position sense was normal in the fingers bilaterally, but was diminished in the toes bilaterally. REFLEXES: Trace+ and bilaterally symmetrical at the biceps, triceps, brachioradialis, and knees, 0 at both ankles. The plantar responses were flexor bilaterally. STANCE: He stood up with a wide base and needed support to stand up. GAIT: He walked with a wide-based but steadier gait with support. Impression/Recommendations Diagnostic Impression 1. Mr. Aleksandra Henderson is a 62-year-old, right-handed, gentleman , who has a long history of hypertension, diabetes mellitus, gastroesophageal reflux disease, alcoholism, and end-stage renal disease, who was hospitalized for an alteration in his mental state on 05/07/2018. Prior to that, he had been imbibing large quantities of alcohol and not eating well. When he was evaluated in the emergency room, his blood sugars were in the 30s and he had alcohol in his system more than 24 hours after he had stopped drinking. 2. Since he has been hospitalized, he has improved, but continues to have significant problems with cognition. 3. He feels better. He is restless today. He says he slept well last night. He is eating well. He feels that his memory is improving. He denies any new neurologic symptoms. 4. At this point in time, he is disoriented to where he is and what the date and year is. His recent and remote memory is impaired. He also has problems with mathematical skills and visuospatial function. He, however, does not demonstrate any focal or lateralizing neurological findings. Altered sensations are present in both his lower extremities and his position sense is decreased in the toes, but normal in the fingers. His deep tendon reflexes are globally diminished with absent ankle jerks. He stands with a wide base and walks with a wide-based but steadier gait. 5. His laboratory data on my initial evaluation revealed that he is mildly anemic with a hemoglobin of 11.7 G. His latest chemistry panel revealed a sodium low at 127, chloride low at 90, potassium elevated at 5.2, BUN elevated at 54 with a creatinine of 9.3, low calcium at 8.0, an alkaline phosphatase elevated at 125, and a low albumin of 3.1. When the patient came in, his blood glucose was measured at 38. His toxicology screen on his admission revealed a serum alcohol of 32. 6. Further laboratory test have revealed a low Folic acid level. 7. His EEG was normal. [address] revealed atrophy and deep white matter changes, but no acute pathology. 9. The patient's history, neurological examination, and laboratory data are most compatible with severe amnesia with other global cognitive impairment most probably related to an encephalopathy due to alcohol use and possibly hypoglycemia. 10. The patient also has a neuropathic process with significant posterior column dysfunction causing the unsteady gait. 11. He was given IV Thiamine and SC Vitamin B 12 and his cognitive function has improved but is still significantly abnormal. Recommendations 1. Continue present management. 2. Folic acid 1 mg PO q day for deficiency. 3. Attempts should be made to prevent hypoglycemia in the future. 4. The patient was again made aware of the ills of alcohol and advised to stop drinking alcohol immediately. 5. Observed closely. Jurgen Jurado M.D., M.S.P.H. Jurgen Jurado MD May 12, 2018 14:17
[2018-05-12 16:00] VITALS: BP 161/90
[2018-05-12] MEDS: D5NS 1,000 ML IV SCH (17:19)
[2018-05-12 20:00] VITALS: BP 169/88
--- NOTE | 2018-05-12 21:49 | Consultation ---
History of Present Illness General Chief Complaint: Dizziness Present Illness HPI 62-year-old male, who is on dialysis. The patient presented complaining of nausea and vomiting. The pt is easily agitated he was confused and only oriented to self. the pt was unable to provide any hx. the pt is restless and pacing. the pt denied any manic sxs . no si/hi Allergies: Coded Allergies: No Known Allergies (Unverified , 05/07/18) Medication History Scheduled Amlodipine Besylate* (Amlodipine Besylate*), 10 MG ORAL DAILY, (Reported) Atorvastatin Calcium* (Atorvastatin Calcium*), 10 MG ORAL BEDTIME, (Reported) Calcium Acetate (Phoslo), 667 MG PO TID, (Reported) Dexlansoprazole (Dexilant), 60 MG ORAL DAILY, (Reported) Labetalol Hcl* (Normodyne*), 300 MG ORAL EVERY 12 HOURS, (Reported) Lisinopril (Lisinopril*), 20 MG ORAL BID, (Reported) Sevelamer Carbonate (Renvela), 800 MG ORAL THREE TIMES A DAY, (Reported) Scheduled PRN Acetaminophen* (Tylenol Extra Strength*), 500 MG ORAL Q6H PRN for Mild Pain/ Temp > 100.5, (Reported) Miscellaneous Medications Insulin Lispro (Humalog), 0 SUBQ, (Reported) Discontinued Medications Unable to Obtain Medications (Unable To Obtain Meds), (Reported) Discontinued Reason: Pt stopped taking med Patient History Limited by: medical condition History Provided By: Medical Record, PMD Healthcare decision maker Resuscitation status Full Code Advanced Directive on File Past Medical/Surgical History Past Medical/Surgical History: (1) Colon polyps (2) Gastritis (3) GI bleed (4) Retroperitoneal hematoma (5) ESRD (end stage renal disease) on dialysis (6) Anemia (7) ESRD (end stage renal disease) (8) Chest pain (9) End stage renal disease (10) Hypoglycemia (11) Lactic acid acidosis Review of Systems Psychiatric: Reports: prior hx, anxiety, depressed feelings, emotional problems , hallucinations Physical Exam General Appearance: alert, confused, agitated, thin Last 24 Hour Vital Signs Date Time Temp Pulse Resp B/P (MAP) Pulse Ox O2 Delivery O2 Flow Rate FiO2 05/12/18 21:38 101.0 05/12/18 21:00 Room Air 05/12/18 20:58 88 169/88 05/12/18 20:00 86 20 Room Air 21 05/12/18 20:00 100.0 88 20 169/88 (115) 100 05/12/18 16:00 97.5 81 19 161/90 (113) 99 05/12/18 12:00 97.7 84 20 185/98 (127) 100 05/12/18 11:42 80 152/79 05/12/18 09:00 Room Air 05/12/18 08:00 98.6 80 19 152/79 (103) 100 05/12/18 04:00 97.8 82 18 106/84 (91) 05/12/18 00:00 98.3 83 18 155/88 (110) Intake and Output 05/11/18 05/12/18 19:00 07:00 Intake Total 1320 ml 280 ml Output Total 900 ml Balance 420 ml 280 ml Intake Oral 1100 ml IV Total 220 ml 180 ml Other 100 ml Output Urine Total 900 ml # Bowel Movements 2 Laboratory Tests Test 05/12/18 05:15 White Blood Count 3.6 K/UL (4.8-10.8) L Red Blood Count 3.99 M/UL (4.70-6.10) L Hemoglobin 11.3 G/DL (14.2-18.0) L Hematocrit 35.0 % (42.0-52.0) L Mean Corpuscular Volume 88 FL (80-99) Mean Corpuscular Hemoglobin 28.3 PG (27.0-31.0) Mean Corpuscular Hemoglobin Concent 32.3 G/DL (32.0-36.0) Red Cell Distribution Width 15.5 % (11.6-14.8) H Platelet Count 157 K/UL (150-450) Mean Platelet Volume 7.6 FL (6.5-10.1) Neutrophils (%) (Auto) 72.3 % (45.0-75.0) Lymphocytes (%) (Auto) 16.6 % (20.0-45.0) L Monocytes (%) (Auto) 9.9 % (1.0-10.0) Eosinophils (%) (Auto) 0.5 % (0.0-3.0) Basophils (%) (Auto) 0.7 % (0.0-2.0) Sodium Level 130 MMOL/L (136-145) L Potassium Level 4.1 MMOL/L (3.5-5.1) Chloride Level 91 MMOL/L (98-107) L Carbon Dioxide Level 26 MMOL/L (21-32) Anion Gap 13 mmol/L (5-15) Blood Urea Nitrogen 61 mg/dL (7-18) H Creatinine 9.6 MG/DL (0.55-1.30) H Estimat Glomerular Filtration Rate 5.6 mL/min (>60) Glucose Level 96 MG/DL (74-106) Calcium Level 8.5 MG/DL (8.5-10.1) Phosphorus Level 4.0 MG/DL (2.5-4.9) Total Bilirubin 1.0 MG/DL (0.2-1.0) Aspartate Amino Transf (AST/SGOT) 30 U/L (15-37) Alanine Aminotransferase (ALT/SGPT) 23 U/L (12-78) Alkaline Phosphatase 125 U/L (46-116) H Total Protein 7.6 G/DL (6.4-8.2) Albumin 3.0 G/DL (3.4-5.0) L Globulin 4.6 g/dL Albumin/Globulin Ratio 0.7 (1.0-2.7) L Height (Feet): 5 Height (Inches): 7.00 Weight (Pounds): 128 Medications Current Medications Medications (Trade) Dose Ordered Sig/Palma Route PRN Reason Start Time Stop Time Status Last Admin Dose Admin Acetaminophen (Tylenol) 650 mg Q4H PRN ORAL Mild Pain (Pain Scale 1-3) 05/09/18 21:00 06/06/18 16:59 05/12/18 20:58 Calcium Acetate (Phoslo) 1,334 mg TIAC ORAL 05/10/18 06:30 06/07/18 06:29 05/12/18 17:19 Dextrose (Dextrose 50%) 25 ml Q30M PRN IV Hypoglycemia 05/09/18 21:00 06/06/18 16:59 Dextrose (Dextrose 50%) 50 ml Q30M PRN IV Hypoglycemia 05/09/18 21:00 06/06/18 16:59 Dextrose/Sodium Chloride 1,000 ml @ 20 mls/hr Q24H IV 05/10/18 17:15 06/09/18 17:14 05/12/18 17:19 Docusate Sodium (Colace) 100 mg EVERY 12 HOURS ORAL 05/09/18 21:00 06/06/18 20:59 05/12/18 20:58 Famotidine (Pepcid) 40 mg DAILY ORAL 05/10/18 09:00 06/07/18 08:59 05/12/18 11:41 Folic Acid (Folate) 1 mg DAILY ORAL 05/11/18 11:00 06/10/18 10:59 05/12/18 11:42 Heparin Sodium (Porcine) (Heparin 5000 units/ml) 5,000 units EVERY 12 HOURS SUBQ 05/09/18 21:00 06/06/18 20:59 05/12/18 21:00 Heparin Sodium (Porcine) (Heparin Sod 1000 units/ml 10ml) 2,000 unit ONCE PRN IV DIALYSIS 05/11/18 15:41 05/14/18 15:40 Labetalol HCl (Normodyne) 300 mg Q12HR ORAL 05/09/18 21:00 06/06/18 23:14 05/12/18 20:58 Ondansetron HCl (Zofran) 4 mg Q6H PRN IVP Nausea & Vomiting 05/09/18 21:00 06/06/18 20:59 Sodium Chloride 1,000 ml @ 500 mls/hr Q2H PRN IVLG sbp<90 during hd 05/11/18 15:41 05/14/18 15:40 Assessment/Plan Problem List: (1) encephslopathy acute due to toxinc Status: not improved, unchanged Assessment/Plan seroquel 50mg po qhs haldol 5mg Im q6hr the pt lacks capacity to make decisions Viktoria Evans MD May 12, 2018 21:49
[2018-05-12] MEDS ORDERED: Haloperidol 5mg/ml Inj IM PRN (21:53)
[2018-05-13] VITALS: BP 156/85
[2018-05-13 04:00] VITALS: BP 163/90
[2018-05-13] MEDS: Calcium Acetate 667mg Tab ORAL SCH ×3 (05:50→15:49)
[2018-05-13 07:04] LABS: BASOPHILS % (AUTO) 0.6 % (0.0-2.0); EOSINOPHILS % (AUTO) 0.9 % (0.0-3.0); HEMATOCRIT 35.1 % (42.0-52.0); HEMOGLOBIN 11.3 G/DL (14.2-18.0); LYMPHOCYTES % (AUTO) 10.6 % (20.0-45.0); MEAN CORPUSCULAR VOLUME 87 FL (80-99); MONOCYTES % (AUTO) 8.1 % (1.0-10.0); NEUTROPHILS % (AUTO) 79.8 % (45.0-75.0); PLATELET COUNT 173 K/UL (150-450); RED BLOOD COUNT 4.04 M/UL (4.70-6.10); WHITE BLOOD COUNT 4.7 K/UL (4.8-10.8)
[2018-05-13 07:35] LABS: ALANINE AMINOTRANSFERASE 16 U/L (12-78); ALBUMIN 3.1 G/DL (3.4-5.0); ALBUMIN/GLOBULIN RATIO 0.6 (1.0-2.7); ALKALINE PHOSPHATASE 126 U/L (46-116); ANION GAP 13 mmol/L (5-15); ASPARTATE AMINO TRANSFERASE 30 U/L (15-37); BLOOD UREA NITROGEN 45 mg/dL (7-18); CALCIUM 8.8 MG/DL (8.5-10.1); CARBON DIOXIDE 25 MMOL/L (21-32); CHLORIDE 94 MMOL/L (98-107); CREATININE 8.2 MG/DL (0.55-1.30); POTASSIUM 4.4 MMOL/L (3.5-5.1); SODIUM 131 MMOL/L (136-145)
[2018-05-13 08:00] VITALS: BP 153/75
[2018-05-13] MEDS: Docusate 100mg cap ORAL SCH ×2 (09:55→22:33)
[2018-05-13] MEDS: Heparin 5000 units/ml inj SUBQ SCH ×2 (09:59→21:00)
--- NOTE | 2018-05-13 10:19 | Diagnostic Imaging Report ---
EXAM: XR Chest, 1 View CLINICAL HISTORY: WEAK TECHNIQUE: Frontal view of the chest. COMPARISON: Chest x-ray, 05/07/18 920 FINDINGS: Lungs: Bilateral interstitial changes and mild vascular congestion. Right lower lobe airspace opacities. Findings may be pulmonary edema or pneumonitis. Pleural space: Unremarkable. No pneumothorax. Heart: Cardiomegaly. Mediastinum: Unremarkable. Bones/joints: Unremarkable. IMPRESSION: Bilateral interstitial changes and mild vascular congestion. Right lower lobe airspace opacities. Findings may be pulmonary edema/CHF or pneumonitis.
[2018-05-13 12:00] VITALS: BP 148/83
--- NOTE | 2018-05-13 12:51 | Neurology Progress Note ---
Interim History Interim History Interim History Mr. Tong Henderson feels better. He is less restless. He says he slept well last night. He is eating fairly well. He feels that his memory is good. He however is cognitively impoverished. He is still unsteady on his feet. He denies any new neurologic symptoms. Review of Systems Neuro Review of Systems Benign. Objective Physical Exam Last Vital Signs Date Time Temp Pulse Resp B/P (MAP) Pulse Ox O2 Delivery O2 Flow Rate FiO2 05/13/18 09:55 85 153/75 05/13/18 09:00 Room Air 05/13/18 08:20 20 21 05/13/18 08:00 98.0 99 Laboratory Tests Test 05/13/18 06:00 White Blood Count 4.7 K/UL (4.8-10.8) L Red Blood Count 4.04 M/UL (4.70-6.10) L Hemoglobin 11.3 G/DL (14.2-18.0) L Hematocrit 35.1 % (42.0-52.0) L Mean Corpuscular Volume 87 FL (80-99) Mean Corpuscular Hemoglobin 27.8 PG (27.0-31.0) Mean Corpuscular Hemoglobin Concent 32.0 G/DL (32.0-36.0) Red Cell Distribution Width 15.0 % (11.6-14.8) H Platelet Count 173 K/UL (150-450) Mean Platelet Volume 7.0 FL (6.5-10.1) Neutrophils (%) (Auto) 79.8 % (45.0-75.0) H Lymphocytes (%) (Auto) 10.6 % (20.0-45.0) L Monocytes (%) (Auto) 8.1 % (1.0-10.0) Eosinophils (%) (Auto) 0.9 % (0.0-3.0) Basophils (%) (Auto) 0.6 % (0.0-2.0) Sodium Level 131 MMOL/L (136-145) L Potassium Level 4.4 MMOL/L (3.5-5.1) Chloride Level 94 MMOL/L (98-107) L Carbon Dioxide Level 25 MMOL/L (21-32) Anion Gap 13 mmol/L (5-15) Blood Urea Nitrogen 45 mg/dL (7-18) H Creatinine 8.2 MG/DL (0.55-1.30) H Estimat Glomerular Filtration Rate 6.7 mL/min (>60) Glucose Level 97 MG/DL (74-106) Calcium Level 8.8 MG/DL (8.5-10.1) Total Bilirubin 1.0 MG/DL (0.2-1.0) Aspartate Amino Transf (AST/SGOT) 30 U/L (15-37) Alanine Aminotransferase (ALT/SGPT) 16 U/L (12-78) Alkaline Phosphatase 126 U/L (46-116) H Total Protein 7.9 G/DL (6.4-8.2) Albumin 3.1 G/DL (3.4-5.0) L Globulin 4.8 g/dL Albumin/Globulin Ratio 0.6 (1.0-2.7) L Neurologic Exam Objective PHYSICAL EXAMINATION: GENERAL: He is a well-developed relatively well-nourished, gentleman, sitting up in bed, in no acute distress. HEAD: Normocephalic and atraumatic. EENT: Examination benign. NECK: No neck rigidity was observed. NEUROLOGIC EXAMINATION: MENTAL STATUS EXAMINATION: He was awake and alert. He was oriented to self. He did not know the name of the hospital. He knew it was May but did not know the exact date or year. He was able to recall 3/3 words immediately, but only remember 1/3 in 1 and 3 minutes. He knew that Annie is President, but could not remember Presidents prior to that. His mathematical skills were impaired. His visuospatial function was also impaired. SPEECH: He had no dysarthria. LANGUAGE: He was able to comprehend and express himself relatively well. CRANIAL NERVE EXAMINATION: II: The visual bond were intact on confrontation testing. III, IV & : The external ocular movements were full and the pupils 3 mm in diameter, equal, round, regular, and reactive to light. V: He had normal facial sensations and the temporales, masseters, and pterygoids functioned normally. VII: He had normal facial expressions and no facial asymmetry. VIII: He was able to hear well bilaterally and had no nystagmus. IX: The palate moved symmetrically on phonation. X: He had no hoarseness of voice. XI: The sternocleidomastoids and trapezii functioned normally. XII: The tongue was in the midline without any fasciculations or atrophy. MOTOR SYSTEM: The tone was normal in all four extremities. Examination of muscle mass revealed no focal wasting. Examination of power revealed G 5/5 power in all muscle groups tested. SENSORY EXAMINATION: He had intact sensations to pinprick and light touch, but complained of subjective alteration in the distal lower extremities. Position sense was normal in the fingers bilaterally, but was diminished in the toes bilaterally. REFLEXES: Trace+ and bilaterally symmetrical at the biceps, triceps, brachioradialis, and knees, 0 at both ankles. The plantar responses were flexor bilaterally. STANCE: He stood up with a wide base and needed support to stand up. GAIT: He walked with a wide-based but steadier gait with support. Impression/Recommendations Diagnostic Impression 1. Mr. Aleksandra Henderson is a 62-year-old, right-handed, gentleman , who has a long history of hypertension, diabetes mellitus, gastroesophageal reflux disease, alcoholism, and end-stage renal disease, who was hospitalized for an alteration in his mental state on 05/07/2018. Prior to that, he had been imbibing large quantities of alcohol and not eating well. When he was evaluated in the emergency room, his blood sugars were in the 30s and he had alcohol in his system more than 24 hours after he had stopped drinking. 2. Since he has been hospitalized, he has improved, but continues to have significant problems with cognition. 3. He feels better. He is less restless. He says he slept well last night. He is eating fairly well. He feels that his memory is good. He however is cognitively impoverished. He is still unsteady on his feet. He denies any new neurologic symptoms. 4. At this point in time, he is disoriented to where he is and what the date and year is. His recent and remote memory is impaired. He also has problems with mathematical skills and visuospatial function. He, however, does not demonstrate any focal or lateralizing neurological findings. Altered sensations are present in both his lower extremities and his position sense is decreased in the toes, but normal in the fingers. His deep tendon reflexes are globally diminished with absent ankle jerks. He stands with a wide base and walks with a wide-based but steadier gait. 5. His laboratory data on my initial evaluation revealed that he is mildly anemic with a hemoglobin of 11.7 G. His latest chemistry panel revealed a sodium low at 127, chloride low at 90, potassium elevated at 5.2, BUN elevated at 54 with a creatinine of 9.3, low calcium at 8.0, an alkaline phosphatase elevated at 125, and a low albumin of 3.1. When the patient came in, his blood glucose was measured at 38. His toxicology screen on his admission revealed a serum alcohol of 32. 6. Further laboratory test have revealed a low Folic acid level. 7. His EEG was normal. [address] revealed atrophy and deep white matter changes, but no acute pathology. 9. The patient's history, neurological examination, and laboratory data are most compatible with severe amnesia with other global cognitive impairment most probably related to an encephalopathy due to alcohol use and possibly hypoglycemia. 10. The patient also has a neuropathic process with significant posterior column dysfunction causing the unsteady gait. 11. He was given IV Thiamine and SC Vitamin B 12 and his cognitive function has improved but is still significantly abnormal. Recommendations 1. Continue present management. 2. Folic acid 1 mg PO q day for deficiency. 3. Attempts should be made to prevent hypoglycemia in the future. 4. The patient was again made aware of the ills of alcohol and advised to stop drinking alcohol immediately. 5. Observed closely. Jurgen Jurado M.D., M.S.P.[facility]. Jurgen Jurado MD May 13, 2018 12:51
--- NOTE | 2018-05-13 14:10 | Nephrology Progress Note ---
Assessment/Plan Plan Hypoglycemia - on IVF with dextrose. ESRD - TTS Alcoholic Hepatopathy. Alcoholic Encephalopathy with advanced Dementia. Poor Prognosis. Functional Decline. Needs SNF! CXR CW CHF + Pneumonia. R/O Aspiration pneumonia. Started on IV Abx. Hd tomorrow + UF. Subjective Subjective Still confused. Febrile to 101! Objective Objective Last 24 Hour Vital Signs Date Time Temp Pulse Resp B/P (MAP) Pulse Ox O2 Delivery O2 Flow Rate FiO2 05/13/18 09:55 85 153/75 05/13/18 09:00 Room Air 05/13/18 08:20 88 20 Room Air 21 05/13/18 08:00 98.0 85 19 153/75 (101) 99 05/13/18 04:00 97.4 80 19 163/90 (114) 100 05/13/18 00:00 98.2 76 19 156/85 (108) 100 05/12/18 21:38 101.0 05/12/18 21:00 Room Air 05/12/18 20:58 88 169/88 05/12/18 20:00 86 20 Room Air 21 05/12/18 20:00 100.0 88 20 169/88 (115) 100 05/12/18 16:00 97.5 81 19 161/90 (113) 99 Intake and Output 05/12/18 05/13/18 19:00 07:00 Intake Total 1020 ml 600 ml Output Total 2000 ml Balance -980 ml 600 ml Intake Oral 360 ml IV Total 20 ml 240 ml Other 1000 ml Hemodialysis UF 2000 ml # Bowel Movements 1 Laboratory Tests 05/13/18 06:00: White Blood Count 4.7L, Red Blood Count 4.04L, Hemoglobin 11.3L, Hematocrit 35.1L, Mean Corpuscular Volume 87, Mean Corpuscular Hemoglobin 27.8, Mean Corpuscular Hemoglobin Concent 32.0, Red Cell Distribution Width 15.0H, Platelet Count 173, Mean Platelet Volume 7.0, Neutrophils (%) (Auto) 79.8H, Lymphocytes (%) (Auto) 10.6L, Monocytes (%) (Auto) 8.1, Eosinophils (%) (Auto) 0.9, Basophils (%) (Auto) 0.6, Sodium Level 131L, Potassium Level 4.4, Chloride Level 94L, Carbon Dioxide Level 25, Anion Gap 13, Blood Urea Nitrogen 45H, Creatinine 8.2H, Estimat Glomerular Filtration Rate 6.7, Glucose Level 97, Calcium Level 8.8, Total Bilirubin 1.0, Aspartate Amino Transf (AST/SGOT) 30, Alanine Aminotransferase (ALT/SGPT) 16, Alkaline Phosphatase 126H, Total Protein 7.9, Albumin 3.1L, Globulin 4.8, Albumin/Globulin Ratio 0.6L Height (Feet): 5 Height (Inches): 7.00 Weight (Pounds): 124 Objective Cachectic Cv RR Lungs B ronchi Abd SNT. BS + E No CCE. ROSALEE AVF aneurysmatic + hematoma Sergio Ellis MD May 13, 2018 14:10
[2018-05-13] MEDS ORDERED: Heparin Sod 1000 units/ml 10ml IV PRN (15:00)
[2018-05-13] MEDS: LEVOFLOXACIN 250 MG IVPB SCH (15:36)
[2018-05-13 16:00] VITALS: BP 155/83
[2018-05-13] MEDS: D5NS 1,000 ML IV SCH (16:57)
[2018-05-13 20:00] VITALS: BP 173/86
--- NOTE | 2018-05-13 21:56 | General Progress Note ---
Assessment/Plan Status: stable, progressing Assessment/Plan seroquel 50mg po qhs haldol 5mg Im q6hr the pt lacks capacity to make decisions Subjective Neurologic/Psychiatric: Reports: anxiety, depressed, emotional problems Allergies: Coded Allergies: No Known Allergies (Unverified , 05/07/18) Objective Last 24 Hour Vital Signs Date Time Temp Pulse Resp B/P (MAP) Pulse Ox O2 Delivery O2 Flow Rate FiO2 05/13/18 16:00 98.1 79 19 155/83 (107) 98 05/13/18 12:00 97.6 76 17 148/83 (104) 100 05/13/18 09:55 85 153/75 05/13/18 09:00 Room Air 05/13/18 08:20 88 20 Room Air 21 05/13/18 08:00 98.0 85 19 153/75 (101) 99 05/13/18 04:00 97.4 80 19 163/90 (114) 100 05/13/18 00:00 98.2 76 19 156/85 (108) 100 Intake and Output 05/12/18 05/13/18 19:00 07:00 Intake Total 1020 ml 600 ml Output Total 2000 ml Balance -980 ml 600 ml Intake Oral 360 ml IV Total 20 ml 240 ml Other 1000 ml Hemodialysis UF 2000 ml # Bowel Movements 1 Laboratory Tests 05/13/18 06:00: White Blood Count 4.7L, Red Blood Count 4.04L, Hemoglobin 11.3L, Hematocrit 35.1L, Mean Corpuscular Volume 87, Mean Corpuscular Hemoglobin 27.8, Mean Corpuscular Hemoglobin Concent 32.0, Red Cell Distribution Width 15.0H, Platelet Count 173, Mean Platelet Volume 7.0, Neutrophils (%) (Auto) 79.8H, Lymphocytes (%) (Auto) 10.6L, Monocytes (%) (Auto) 8.1, Eosinophils (%) (Auto) 0.9, Basophils (%) (Auto) 0.6, Sodium Level 131L, Potassium Level 4.4, Chloride Level 94L, Carbon Dioxide Level 25, Anion Gap 13, Blood Urea Nitrogen 45H, Creatinine 8.2H, Estimat Glomerular Filtration Rate 6.7, Glucose Level 97, Calcium Level 8.8, Total Bilirubin 1.0, Aspartate Amino Transf (AST/SGOT) 30, Alanine Aminotransferase (ALT/SGPT) 16, Alkaline Phosphatase 126H, Total Protein 7.9, Albumin 3.1L, Globulin 4.8, Albumin/Globulin Ratio 0.6L Height (Feet): 5 Height (Inches): 7.00 Weight (Pounds): 124 General Appearance: alert, confused, agitated Viktoria Evans MD May 13, 2018 21:56
[2018-05-14] VITALS (7 sets, daily range): BP systolic 136–169; BP diastolic 74–88
[2018-05-14] MEDS: Calcium Acetate 667mg Tab ORAL SCH ×3 (06:01→17:58)
[2018-05-14] MEDS: Docusate 100mg cap ORAL SCH ×2 (08:33→20:51)
[2018-05-14] MEDS: Heparin 5000 units/ml inj SUBQ SCH ×2 (08:38→21:00)
[2018-05-14 09:27] LABS: BASOPHILS % (AUTO) 0.4 % (0.0-2.0); EOSINOPHILS % (AUTO) 1.9 % (0.0-3.0); HEMATOCRIT 32.8 % (42.0-52.0); HEMOGLOBIN 10.7 G/DL (14.2-18.0); LYMPHOCYTES % (AUTO) 12.3 % (20.0-45.0); MEAN CORPUSCULAR VOLUME 86 FL (80-99); MONOCYTES % (AUTO) 9.5 % (1.0-10.0); PLATELET COUNT 166 K/UL (150-450); WHITE BLOOD COUNT 5.3 K/UL (4.8-10.8)
[2018-05-14 09:53] LABS: ALANINE AMINOTRANSFERASE 14 U/L (12-78); ALBUMIN 2.9 G/DL (3.4-5.0); ALBUMIN/GLOBULIN RATIO 0.6 (1.0-2.7); ALKALINE PHOSPHATASE 121 U/L (46-116); ANION GAP 14 mmol/L (5-15); ASPARTATE AMINO TRANSFERASE 25 U/L (15-37); BLOOD UREA NITROGEN 55 mg/dL (7-18); CALCIUM 9.1 MG/DL (8.5-10.1); CARBON DIOXIDE 22 MMOL/L (21-32); CHLORIDE 88 MMOL/L (98-107); CREATININE 9.6 MG/DL (0.55-1.30); POTASSIUM 4.6 MMOL/L (3.5-5.1); SODIUM 124 MMOL/L (136-145)
--- NOTE | 2018-05-14 10:23 | General Progress Note ---
Assessment/Plan Problem List: (1) encephslopathy acute due to toxinc Status: stable Assessment/Plan seroquel 50mg po qhs haldol 5mg Im q6hr the pt lacks capacity to make decisions Subjective Neurologic/Psychiatric: Reports: anxiety, depressed, emotional problems Allergies: Coded Allergies: No Known Allergies (Unverified , 05/07/18) Subjective the pt is oriented to self only disoriented Objective Last 24 Hour Vital Signs Date Time Temp Pulse Resp B/P (MAP) Pulse Ox O2 Delivery O2 Flow Rate FiO2 05/14/18 09:00 Room Air 05/14/18 08:34 78 136/79 05/14/18 08:00 98.7 78 20 136/79 (98) 97 05/14/18 04:22 80 169/86 05/14/18 04:00 99.3 80 18 169/86 (113) 100 05/14/18 03:00 78 164/85 (111) 05/14/18 01:39 78 20 Room Air 21 05/14/18 00:00 98.2 81 18 169/88 (115) 100 05/13/18 22:33 80 173/86 05/13/18 21:00 Room Air 05/13/18 20:00 99.0 80 18 173/86 (115) 100 05/13/18 16:00 98.1 79 19 155/83 (107) 98 05/13/18 12:00 97.6 76 17 148/83 (104) 100 Intake and Output 05/13/18 05/14/18 18:59 06:59 Intake Total 930 ml 420 ml Balance 930 ml 420 ml Intake Oral 180 ml IV Total 280 ml 240 ml Other 650 ml Laboratory Tests 05/14/18 07:45: White Blood Count 5.3, Red Blood Count 3.80L, Hemoglobin 10.7L, Hematocrit 32.8L , Mean Corpuscular Volume 86, Mean Corpuscular Hemoglobin 28.3, Mean Corpuscular Hemoglobin Concent 32.8, Red Cell Distribution Width 15.0H, Platelet Count 166, Mean Platelet Volume 7.4, Neutrophils (%) (Auto) 76.0H, Lymphocytes (%) (Auto) 12.3L, Monocytes (%) (Auto) 9.5, Eosinophils (%) (Auto) 1.9, Basophils (%) (Auto) 0.4, Sodium Level 124L, Potassium Level 4.6, Chloride Level 88L, Carbon Dioxide Level 22, Anion Gap 14, Blood Urea Nitrogen 55H, Creatinine 9.6H, Estimat Glomerular Filtration Rate 5.6, Glucose Level 98, Calcium Level 9.1, Total Bilirubin 1.0, Aspartate Amino Transf (AST/SGOT) 25, Alanine Aminotransferase (ALT/SGPT) 14, Alkaline Phosphatase 121H, Total Protein 7.6, Albumin 2.9L, Globulin 4.7, Albumin/Globulin Ratio 0.6L Height (Feet): 5 Height (Inches): 7.00 Weight (Pounds): 129 General Appearance: alert, confused, agitated Viktoria Evans MD May 14, 2018 10:23
[2018-05-14] MEDS ORDERED: D5NS 1000ml IV ONE (15:59)
--- NOTE | 2018-05-14 17:04 | Nephrology Progress Note ---
Assessment/Plan Plan Hypoglycemia - on IVF with dextrose. 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 Poor Prognosis. Functional Decline. Needs SNF! CXR CW CHF + Pneumonia with bacteremia! R/O Aspiration pneumonia. Started on IV Abx. Hd tomorrow + UF. Subjective Subjective Still confused! Objective Objective Last 24 Hour Vital Signs Date Time Temp Pulse Resp B/P (MAP) Pulse Ox O2 Delivery O2 Flow Rate FiO2 05/14/18 12:00 97.9 72 20 148/74 (98) 97 05/14/18 09:08 98.7 05/14/18 09:00 Room Air 05/14/18 08:34 78 136/79 05/14/18 08:00 98.7 78 20 136/79 (98) 97 05/14/18 04:22 80 169/86 05/14/18 04:00 99.3 80 18 169/86 (113) 100 05/14/18 03:00 78 164/85 (111) 05/14/18 01:39 78 20 Room Air 21 05/14/18 00:00 98.2 81 18 169/88 (115) 100 05/13/18 22:33 80 173/86 05/13/18 21:00 Room Air 05/13/18 20:00 99.0 80 18 173/86 (115) 100 Intake and Output 05/13/18 05/14/18 19:00 07:00 Intake Total 970 ml 420 ml Balance 970 ml 420 ml Intake Oral 180 ml IV Total 320 ml 240 ml Other 650 ml # Bowel Movements 1 Laboratory Tests 05/14/18 07:45: White Blood Count 5.3, Red Blood Count 3.80L, Hemoglobin 10.7L, Hematocrit 32.8L , Mean Corpuscular Volume 86, Mean Corpuscular Hemoglobin 28.3, Mean Corpuscular Hemoglobin Concent 32.8, Red Cell Distribution Width 15.0H, Platelet Count 166, Mean Platelet Volume 7.4, Neutrophils (%) (Auto) 76.0H, Lymphocytes (%) (Auto) 12.3L, Monocytes (%) (Auto) 9.5, Eosinophils (%) (Auto) 1.9, Basophils (%) (Auto) 0.4, Sodium Level 124L, Potassium Level 4.6, Chloride Level 88L, Carbon Dioxide Level 22, Anion Gap 14, Blood Urea Nitrogen 55H, Creatinine 9.6H, Estimat Glomerular Filtration Rate 5.6, Glucose Level 98, Calcium Level 9.1, Total Bilirubin 1.0, Aspartate Amino Transf (AST/SGOT) 25, Alanine Aminotransferase (ALT/SGPT) 14, Alkaline Phosphatase 121H, Total Protein 7.6, Albumin 2.9L, Globulin 4.7, Albumin/Globulin Ratio 0.6L Height (Feet): 5 Height (Inches): 7.00 Weight (Pounds): 129 Objective Cachectic Cv RR Lungs B ronchi Abd SNT. BS + E No CCE. ROSALEE AVF aneurysmatic + hematoma Sergio Ellis MD May 14, 2018 17:04
[2018-05-14] MEDS: D5NS 1,000 ML IV SCH (17:58)
--- NOTE | 2018-05-14 18:26 | Neurology Progress Note ---
Interim History Interim History Interim History Mr. Tong Henderson feels about the same as yesterday. He is less restless. He says he slept well last night. He is eating fairly well. He feels that his memory is good. He however is cognitively impoverished. He is still unsteady on his feet. He denies any new neurologic symptoms. Review of Systems Neuro Review of Systems Benign. Objective Physical Exam Last Vital Signs Date Time Temp Pulse Resp B/P (MAP) Pulse Ox O2 Delivery O2 Flow Rate FiO2 05/14/18 12:00 97.9 72 20 148/74 (98) 97 05/14/18 09:00 Room Air 05/14/18 01:39 21 Laboratory Tests Test 05/14/18 07:45 White Blood Count 5.3 K/UL (4.8-10.8) Red Blood Count 3.80 M/UL (4.70-6.10) L Hemoglobin 10.7 G/DL (14.2-18.0) L Hematocrit 32.8 % (42.0-52.0) L Mean Corpuscular Volume 86 FL (80-99) Mean Corpuscular Hemoglobin 28.3 PG (27.0-31.0) Mean Corpuscular Hemoglobin Concent 32.8 G/DL (32.0-36.0) Red Cell Distribution Width 15.0 % (11.6-14.8) H Platelet Count 166 K/UL (150-450) Mean Platelet Volume 7.4 FL (6.5-10.1) Neutrophils (%) (Auto) 76.0 % (45.0-75.0) H Lymphocytes (%) (Auto) 12.3 % (20.0-45.0) L Monocytes (%) (Auto) 9.5 % (1.0-10.0) Eosinophils (%) (Auto) 1.9 % (0.0-3.0) Basophils (%) (Auto) 0.4 % (0.0-2.0) Sodium Level 124 MMOL/L (136-145) L Potassium Level 4.6 MMOL/L (3.5-5.1) Chloride Level 88 MMOL/L (98-107) L Carbon Dioxide Level 22 MMOL/L (21-32) Anion Gap 14 mmol/L (5-15) Blood Urea Nitrogen 55 mg/dL (7-18) H Creatinine 9.6 MG/DL (0.55-1.30) H Estimat Glomerular Filtration Rate 5.6 mL/min (>60) Glucose Level 98 MG/DL (74-106) Calcium Level 9.1 MG/DL (8.5-10.1) Total Bilirubin 1.0 MG/DL (0.2-1.0) Aspartate Amino Transf (AST/SGOT) 25 U/L (15-37) Alanine Aminotransferase (ALT/SGPT) 14 U/L (12-78) Alkaline Phosphatase 121 U/L (46-116) H Total Protein 7.6 G/DL (6.4-8.2) Albumin 2.9 G/DL (3.4-5.0) L Globulin 4.7 g/dL Albumin/Globulin Ratio 0.6 (1.0-2.7) L Neurologic Exam Objective PHYSICAL EXAMINATION: GENERAL: He is a well-developed relatively well-nourished, gentleman, sitting up in bed, in no acute distress. HEAD: Normocephalic and atraumatic. EENT: Examination benign. NECK: No neck rigidity was observed. NEUROLOGIC EXAMINATION: MENTAL STATUS EXAMINATION: He was awake and alert. He was oriented to self. He did not know the name of the hospital. He knew it was May but did not know the exact date or year. He was able to recall 3/3 words immediately, but only remember 1/3 in 1 and 3 minutes. He knew that Annie is President, but could not remember Presidents prior to that. His mathematical skills were impaired. His visuospatial function was also impaired. SPEECH: He had no dysarthria. LANGUAGE: He was able to comprehend and express himself relatively well. CRANIAL NERVE EXAMINATION: II: The visual bond were intact on confrontation testing. III, IV & : The external ocular movements were full and the pupils 3 mm in diameter, equal, round, regular, and reactive to light. V: He had normal facial sensations and the temporales, masseters, and pterygoids functioned normally. VII: He had normal facial expressions and no facial asymmetry. VIII: He was able to hear well bilaterally and had no nystagmus. IX: The palate moved symmetrically on phonation. X: He had no hoarseness of voice. XI: The sternocleidomastoids and trapezii functioned normally. XII: The tongue was in the midline without any fasciculations or atrophy. MOTOR SYSTEM: The tone was normal in all four extremities. Examination of muscle mass revealed no focal wasting. Examination of power revealed G 5/5 power in all muscle groups tested. SENSORY EXAMINATION: He had intact sensations to pinprick and light touch, but complained of subjective alteration in the distal lower extremities. Position sense was normal in the fingers bilaterally, but was diminished in the toes bilaterally. REFLEXES: Trace+ and bilaterally symmetrical at the biceps, triceps, brachioradialis, and knees, 0 at both ankles. The plantar responses were flexor bilaterally. STANCE: He stood up with a wide base and needed support to stand up. GAIT: He walked with a wide-based but steadier gait with support. Impression/Recommendations Diagnostic Impression 1. Mr. Aleksandra Henderson is a 62-year-old, right-handed, gentleman , who has a long history of hypertension, diabetes mellitus, gastroesophageal reflux disease, alcoholism, and end-stage renal disease, who was hospitalized for an alteration in his mental state on 05/07/2018. Prior to that, he had been imbibing large quantities of alcohol and not eating well. When he was evaluated in the emergency room, his blood sugars were in the 30s and he had alcohol in his system more than 24 hours after he had stopped drinking. 2. Since he has been hospitalized, he has improved, but continues to have significant problems with cognition. 3. He feels about the same as yesterday. He is less restless. He says he slept well last night. He is eating fairly well. He feels that his memory is good. He however is cognitively impoverished. He is still unsteady on his feet. He denies any new neurologic symptoms. 4. At this point in time, he is disoriented to where he is and what the date and year is. His recent and remote memory is impaired. He also has problems with mathematical skills and visuospatial function. He, however, does not demonstrate any focal or lateralizing neurological findings. Altered sensations are present in both his lower extremities and his position sense is decreased in the toes, but normal in the fingers. His deep tendon reflexes are globally diminished with absent ankle jerks. He stands with a wide base and walks with a wide-based but steadier gait. 5. His laboratory data on my initial evaluation revealed that he is mildly anemic with a hemoglobin of 11.7 G. His latest chemistry panel revealed a sodium low at 127, chloride low at 90, potassium elevated at 5.2, BUN elevated at 54 with a creatinine of 9.3, low calcium at 8.0, an alkaline phosphatase elevated at 125, and a low albumin of 3.1. When the patient came in, his blood glucose was measured at 38. His toxicology screen on his admission revealed a serum alcohol of 32. 6. Further laboratory test have revealed a low Folic acid level. 7. His EEG was normal. [address] revealed atrophy and deep white matter changes, but no acute pathology. 9. The patient's history, neurological examination, and laboratory data are most compatible with severe amnesia with other global cognitive impairment most probably related to an encephalopathy due to alcohol use and possibly hypoglycemia. 10. The patient also has a neuropathic process with significant posterior column dysfunction causing the unsteady gait. 11. He was given IV Thiamine and SC Vitamin B 12 and his cognitive function has improved but is still significantly abnormal. Recommendations 1. Continue present management. 2. Folic acid 1 mg PO q day for deficiency. 3. Attempts should be made to prevent hypoglycemia in the future. 4. The patient was again made aware of the ills of alcohol and advised to stop drinking alcohol immediately. 5. Increase activity. 6. Multiple daily walks. 7. Observe closely. Jurgen Jurado M.D., M.S.P.H. Jurgen Jurado MD May 14, 2018 18:26
--- NOTE | 2018-05-14 19:37 | Infectious Diseases Prog Note ---
Assessment/Plan Assessment/Plan Full consult dictated: gram + bacteremia sepsis ? pna fevers pmh noted zosyn and vancomycin check blood cultures, labs, sc, chest x-ray d/w Dr. Ellis thank you Subjective Allergies: Coded Allergies: No Known Allergies (Unverified , 05/07/18) Objective Vital Signs Last 24 Hour Vital Signs Date Time Temp Pulse Resp B/P (MAP) Pulse Ox O2 Delivery O2 Flow Rate FiO2 05/14/18 16:00 97.9 72 20 156/81 (106) 98 05/14/18 12:00 97.9 72 20 148/74 (98) 97 05/14/18 09:08 98.7 05/14/18 09:00 Room Air 05/14/18 08:34 78 136/79 05/14/18 08:00 98.7 78 20 136/79 (98) 97 05/14/18 04:22 80 169/86 05/14/18 04:00 99.3 80 18 169/86 (113) 100 05/14/18 03:00 78 164/85 (111) 05/14/18 01:39 78 20 Room Air 21 05/14/18 00:00 98.2 81 18 169/88 (115) 100 05/13/18 22:33 80 173/86 05/13/18 21:00 Room Air 05/13/18 20:00 99.0 80 18 173/86 (115) 100 Height (Feet): 5 Height (Inches): 7.00 Weight (Pounds): 129 Microbiology Date/Time Source Procedure Growth Status 05/13/18 06:15 Blood Blood Culture - Preliminary Resulted 05/13/18 06:00 Blood Blood Culture - Preliminary Resulted Laboratory Tests Test 05/14/18 07:45 White Blood Count 5.3 K/UL (4.8-10.8) Red Blood Count 3.80 M/UL (4.70-6.10) L Hemoglobin 10.7 G/DL (14.2-18.0) L Hematocrit 32.8 % (42.0-52.0) L Mean Corpuscular Volume 86 FL (80-99) Mean Corpuscular Hemoglobin 28.3 PG (27.0-31.0) Mean Corpuscular Hemoglobin Concent 32.8 G/DL (32.0-36.0) Red Cell Distribution Width 15.0 % (11.6-14.8) H Platelet Count 166 K/UL (150-450) Mean Platelet Volume 7.4 FL (6.5-10.1) Neutrophils (%) (Auto) 76.0 % (45.0-75.0) H Lymphocytes (%) (Auto) 12.3 % (20.0-45.0) L Monocytes (%) (Auto) 9.5 % (1.0-10.0) Eosinophils (%) (Auto) 1.9 % (0.0-3.0) Basophils (%) (Auto) 0.4 % (0.0-2.0) Sodium Level 124 MMOL/L (136-145) L Potassium Level 4.6 MMOL/L (3.5-5.1) Chloride Level 88 MMOL/L (98-107) L Carbon Dioxide Level 22 MMOL/L (21-32) Anion Gap 14 mmol/L (5-15) Blood Urea Nitrogen 55 mg/dL (7-18) H Creatinine 9.6 MG/DL (0.55-1.30) H Estimat Glomerular Filtration Rate 5.6 mL/min (>60) Glucose Level 98 MG/DL (74-106) Calcium Level 9.1 MG/DL (8.5-10.1) Total Bilirubin 1.0 MG/DL (0.2-1.0) Aspartate Amino Transf (AST/SGOT) 25 U/L (15-37) Alanine Aminotransferase (ALT/SGPT) 14 U/L (12-78) Alkaline Phosphatase 121 U/L (46-116) H Total Protein 7.6 G/DL (6.4-8.2) Albumin 2.9 G/DL (3.4-5.0) L Globulin 4.7 g/dL Albumin/Globulin Ratio 0.6 (1.0-2.7) L Current Medications Medications (Trade) Dose Ordered Sig/Palma Route PRN Reason Start Time Stop Time Status Last Admin Dose Admin Acetaminophen (Tylenol) 650 mg Q4H PRN ORAL Mild Pain (Pain Scale 1-3) 05/09/18 21:00 06/06/18 16:59 05/14/18 08:36 Amlodipine Besylate (Norvasc) 10 mg DAILY ORAL 05/14/18 04:16 06/13/18 04:15 05/14/18 04:22 Calcium Acetate (Phoslo) 1,334 mg TIAC ORAL 05/10/18 06:30 06/07/18 06:29 05/14/18 17:58 Dextrose (Dextrose 50%) 25 ml Q30M PRN IV Hypoglycemia 05/09/18 21:00 06/06/18 16:59 Dextrose (Dextrose 50%) 50 ml Q30M PRN IV Hypoglycemia 05/09/18 21:00 06/06/18 16:59 Dextrose/Sodium Chloride 1,000 ml @ 20 mls/hr Q24H IV 05/10/18 17:15 06/09/18 17:14 05/14/18 17:58 Docusate Sodium (Colace) 100 mg EVERY 12 HOURS ORAL 05/09/18 21:00 06/06/18 20:59 05/13/18 22:33 Famotidine (Pepcid) 40 mg DAILY ORAL 05/10/18 09:00 06/07/18 08:59 05/14/18 08:35 Folic Acid (Folate) 1 mg DAILY ORAL 05/11/18 11:00 06/10/18 10:59 05/14/18 08:35 Haloperidol Lactate (Haldol) 5 mg Q6H PRN IM Agitation 05/12/18 21:53 06/11/18 21:52 Heparin Sodium (Porcine) (Heparin 5000 units/ml) 5,000 units EVERY 12 HOURS SUBQ 05/09/18 21:00 06/06/18 20:59 05/14/18 08:38 Heparin Sodium (Porcine) (Heparin Sod 1000 units/ml 10ml) 2,000 unit ONCE PRN IV FOR HD USE ONLY 05/13/18 15:00 05/14/18 23:59 Labetalol HCl (Normodyne) 300 mg Q12HR ORAL 05/09/18 21:00 06/06/18 23:14 05/13/18 22:33 Levofloxacin 100 ml @ 100 mls/hr Q48H IVPB 05/13/18 14:00 05/20/18 13:59 05/13/18 15:36 Ondansetron HCl (Zofran) 4 mg Q6H PRN IVP Nausea & Vomiting 05/09/18 21:00 06/06/18 20:59 Quetiapine Fumarate (SEROquel) 50 mg BEDTIME ORAL 05/13/18 21:00 06/12/18 20:59 05/13/18 22:33 Sodium Chloride 1,000 ml @ 500 mls/hr Q2H PRN IVLG sbp<90 during hd 05/13/18 14:30 05/14/18 23:59 Vancomycin HCl (Vanco rx to dose) 1 ea DAILY PRN MISC Per rx protocol 05/14/18 11:00 06/13/18 10:59 Vancomycin HCl 1 gm/Dextrose 275 ml @ 183.708 mls/hr ONCE IVPB 05/14/18 23:00 05/15/18 02:00 Ethan Piña MD May 14, 2018 19:37
--- NOTE | 2018-05-14 20:30 | Consultation ---
DATE OF CONSULTATION: INFECTIOUS DISEASES CONSULTATION NOTE: CANCELED DICTATION Ethan Piña M.D. DR: MIGUEL JOB#: [id number] CC:
[2018-05-14] MEDS: Piperacillin/Tazobactam 2.25 GM in D5W 55 ML IVPB SCH (20:52)
--- NOTE | 2018-05-14 21:30 | Consultation ---
DATE OF CONSULTATION: 05/14/2018 INFECTIOUS DISEASE CONSULTATION CONSULTING PHYSICIAN: Ethan Piña M.D. ATTENDING PHYSICIAN: Sergio Ellis M.D. REFERRING PHYSICIAN: Sergio Ellis M.D. REASON FOR CONSULTATION: Gram-positive bacteremia, sepsis, pneumonia, fevers. CHIEF COMPLAINT: The patient's chief complaint coming into the hospital is hypoglycemia . HISTORY OF PRESENT ILLNESS: This is a 62-year-old male who comes into [facility] with hypoglycemia. The patient has history of end-stage renal disease on hemodialysis with AV fistula. He has no central lines. The patient was noted to be febrile and possibly septic. Temperature on admission was 99.9 as high as 100.5, which is significantly elevated for the patient on hemodialysis. Workup initially showed negative blood cultures, however, because of persistent fevers another set of blood cultures were done which showed gram-positive cocci in clusters. Identification is pending. Because of the gram-positive bacteremia, possible sepsis, fevers, and also possibly pneumonia, Infectious Diseases Consultation requested. Initial chest x-ray showed pulmonary vascular congestion versus congestion with edema. Followup chest x-ray shows right lower lobe airspace opacities, pneumonia versus congestive heart failure or edema. Case was discussed with Dr. Ellis. Infectious disease consultation requested for antibiotic management. The patient is growing possible gram-positive bacteremia, sepsis, possible pneumonia, and fevers. The patient was placed on Zosyn and vancomycin, was already on Levaquin. MAR was noted. Orders were noted. Notes were reviewed. Case discussed with RN also. REVIEW OF SYSTEMS: CONSTITUTIONAL: When I saw, the patient is getting hemodialysis. He is alert and responsive. He has been having fevers. Currently, no chills HEAD AND NECK: No head pain or neck pain. No neck stiffness. No change in vision. CARDIAC: No chest pain or palpitations. No pressors. GASTROINTESTINAL: No nausea, vomiting, abdominal pain, diarrhea. GENITOURINARY: No Burns, hemodialysis. PULMONARY: Mild cough and congestion but no significant secretions or hemoptysis. SKIN: No rash or itching. EXTREMITIES: No extremity pain. NEUROLOGIC: No seizures. Generalized fatigue. No new focal weakness. PAST MEDICAL HISTORY: The patient's past medical history includes history of following: The patient has a past medical history of end-stage renal disease, on hemodialysis. He has left arm AV fistula. He has history of alcohol abuse, history of hypertensive cardiovascular disease, history of diabetes type 2, diabetes mellitus, history of GERD, history of hypertension, history of dyslipidemia. He has history of elevated creatinine, history of anemia. ALLERGIES: No known drug allergies. No antibiotic allergies. SOCIAL HISTORY: Positive for ETOH abuse. No IV drug abuse or smoking per the records. FAMILY HISTORY: Noncontributory. No mention of tuberculosis or cancer. MEDICATIONS: Upon reviewing the MAR, the patient was on the following medications: He is on vancomycin. He is on amlodipine or Norvasc. He is on Seroquel, heparin, sodium chloride, Levaquin, Zosyn, vancomycin, haloperidol, folic acid, famotidine, calcium acetate, docusate, labetalol, Zofran. Outside medications noted and reconciliated. PHYSICAL EXAMINATION: VITAL SIGNS: Temperature is 97.9, pulse rate 72, respiratory rate 20, blood pressure 148/74, saturation 97%. The patient's maximum temperature was 100.0, previously was 100.5. He has been having consistent temperatures throughout the hospitalization. GENERAL: Alert and responsive, no acute distress, getting hemodialysis. HEAD AND NECK: Oral exam, no thrush. Eye exam, no icterus. Normocephalic. Neck is supple. No JVD. HEART: Regular. No obvious gallop or murmur. No friction rub. ABDOMEN: Soft. Positive bowel sounds. Nontender. No organomegaly. LUNGS: Few bilateral rhonchi and possible rales and crackles. SKIN: No rash or dermatitis. MUSCULOSKELETAL: No effusion. No septic arthritis. EXTREMITIES: Lower extremity exam, without cellulitis. PERIPHERAL VASCULAR: No cyanosis or gangrene. GENITOURINARY: No Burns. He is a hemodialysis patient. No CVA tenderness. LINE SITES: He has AV fistula. No central line. NEUROLOGIC: Intact. Alert and oriented x3. Nonfocal exam. LABORATORY AND DIAGNOSTIC DATA: Laboratory data as follows: White count 5.3, hemoglobin 10.7, platelet count 166. Creatinine is 9.6. LFTs were noted. Initial blood cultures negative. MRSA screen is positive. Blood cultures follow up, two bottles had gram-positive organisms, identification is pending. IMAGING STUDIES: Chest x-ray from May 13, 2018 showed bilateral interstitial changes, could be vascular congestion, also right lower lobe airspace opacity. Sputum cultures been ordered. Repeat blood cultures been ordered. ASSESSMENT AND PLAN: 1. The patient has possible gram-positive bacteremia with fevers and possible sepsis, rule out community-acquired pneumonia versus aspiration healthcare acquired pneumonia based on chest x-ray findings. Also could have pulmonary vascular congestion and congestive heart failure and edema. Continue Zosyn, vancomycin, Levaquin for pneumonia including community-acquired and healthcare-acquired pneumonia. The patient has high risk for healthcare-acquired pneumonia. He is a hemodialysis patient. We will cover gram-negative and MRSA. Also cover Streptococcus pneumoniae, atypical pneumonia, or community-acquired pneumonia. Continue Zosyn, Levaquin, and vancomycin. Await identification of the blood cultures. The patient has what looks like possible gram-positive bacteremia in addition could have sepsis with fevers. Continue Zosyn, Levaquin, and vancomycin. Check cultures, labs, chest x-ray, sputum culture and blood cultures. Continue with Zosyn, Levaquin, and vancomycin for sepsis, pneumonia, fevers, and gram-positive bacteremia. 2. MRSA colonization and isolation. 3. Anemia. 4. End-stage disease on hemodialysis. 5. AV fistula. 6. Diabetes type 2. Blood sugar treatment per Dr. Ellis. 7. Hypertension. 8. Hypertensive heart disease and cardiovascular disease. 9. Blood pressure treatment per Dr. Ellis. 10. Gastroesophageal reflux disease. 11. Anemia. 12. Elevated creatinine. 13. Possible dyslipidemia. 14. Skin care protocol. 15. Past medical history noted. 16. Case discussed with Dr. Ellis. 17. No known drug allergies. 18. Social history is positive for ETOH abuse. 19. Family history is noncontributory. 20. MAR was noted. 21. Case discussed with RN. 22. Continue treatment per primary consultants. 23. Notes and records were noted . 24. Orders were entered. Ethan Piña M.D. DR: Nadine JOB#: [id number] CC:
[2018-05-14] MEDS ORDERED: Vancomycin 1gm/D5W 275ml IVPB SCH ×2 (23:00)
[2018-05-15] VITALS: BP 152/77
[2018-05-15 04:00] VITALS: BP 160/80
[2018-05-15] MEDS: Piperacillin/Tazobactam 2.25 GM in D5W 55 ML IVPB SCH ×3 (05:24→22:38)
[2018-05-15] MEDS: Calcium Acetate 667mg Tab ORAL SCH ×3 (05:28→17:28)
[2018-05-15 08:00] VITALS: BP 160/80
[2018-05-15] MEDS: Docusate 100mg cap ORAL SCH ×2 (08:43→20:36)
[2018-05-15] MEDS: Heparin 5000 units/ml inj SUBQ SCH ×2 (08:43→20:35)
[2018-05-15 12:00] VITALS: BP 142/74
[2018-05-15] MEDS: LEVOFLOXACIN 250 MG IVPB SCH (12:45)
--- NOTE | 2018-05-15 13:28 | General Progress Note ---
Assessment/Plan Problem List: (1) encephslopathy acute due to toxinc Assessment/Plan seroquel 50mg po qhs haldol 5mg Im q6hr the pt lacks capacity to make decisions Subjective Neurologic/Psychiatric: Reports: anxiety, depressed, emotional problems Allergies: Coded Allergies: No Known Allergies (Unverified , 05/07/18) Subjective the pt is oriented to self only disoriented Objective Last 24 Hour Vital Signs Date Time Temp Pulse Resp B/P (MAP) Pulse Ox O2 Delivery O2 Flow Rate FiO2 05/15/18 09:00 Room Air 05/15/18 08:45 80 160/80 05/15/18 08:44 80 160/80 05/15/18 08:00 98.5 80 17 160/80 (106) 97 05/15/18 04:00 96.7 79 17 160/80 (106) 97 05/15/18 00:00 97.7 85 18 152/77 (102) 96 05/14/18 21:00 Room Air 05/14/18 20:51 89 162/79 05/14/18 20:00 97.0 89 16 162/79 (106) 97 05/14/18 16:00 97.9 72 20 156/81 (106) 98 Intake and Output 05/14/18 05/15/18 18:59 06:59 Intake Total 740 ml 535.000 ml Balance 740 ml 535.000 ml Intake Oral 500 ml IV Total 240 ml 535.000 ml # Voids 3 # Bowel Movements 2 1 Height (Feet): 5 Height (Inches): 7.00 Weight (Pounds): 121 General Appearance: alert, confused Viktoria Evans MD May 15, 2018 13:28
[2018-05-15 16:00] VITALS: BP 138/78
--- NOTE | 2018-05-15 17:12 | Nephrology Progress Note ---
Assessment/Plan Plan Hypoglycemia - on IVF with dextrose. 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 Poor Prognosis. Functional Decline. Needs SNF! CXR CW CHF + Pneumonia with bacteremia! R/O Aspiration pneumonia. Started on IV Abx. Staph Aureus Sepsis! Serious and life-threatening condition. 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 To DW Vasc. Sx. Subjective Subjective Much more alert! Objective Objective Last 24 Hour Vital Signs Date Time Temp Pulse Resp B/P (MAP) Pulse Ox O2 Delivery O2 Flow Rate FiO2 05/15/18 12:00 98.4 74 17 142/74 (96) 97 05/15/18 09:00 Room Air 05/15/18 08:45 80 160/80 05/15/18 08:44 80 160/80 05/15/18 08:00 98.5 80 17 160/80 (106) 97 05/15/18 04:00 96.7 79 17 160/80 (106) 97 05/15/18 00:00 97.7 85 18 152/77 (102) 96 05/14/18 21:00 Room Air 05/14/18 20:51 89 162/79 05/14/18 20:00 97.0 89 16 162/79 (106) 97 Intake and Output 05/14/18 05/15/18 18:59 06:59 Intake Total 740 ml 535.000 ml Balance 740 ml 535.000 ml Intake Oral 500 ml IV Total 240 ml 535.000 ml # Voids 3 # Bowel Movements 2 1 Height (Feet): 5 Height (Inches): 7.00 Weight (Pounds): 121 Objective Cachectic Cv RR Lungs B ronchi Abd SNT. BS + E No CCE. ROSALEE Extremely aneurysmatic AVF Sergio Ellis MD May 15, 2018 17:12
[2018-05-15] MEDS ORDERED: Heparin Sod 1000 units/ml 10ml IV PRN (17:16)
[2018-05-15] MEDS: D5NS 1,000 ML IV SCH (17:28)
--- NOTE | 2018-05-15 18:53 | Neurology Progress Note ---
Interim History Interim History Interim History Mr. Tong Henderson feels better. He is not restless today. He says he slept well last night. He is eating fairly well. He feels that his memory is better. He however is cognitively impoverished. He feels steadier on his feet. He denies any new neurologic symptoms. Review of Systems Neuro Review of Systems Benign. Objective Physical Exam Last Vital Signs Date Time Temp Pulse Resp B/P (MAP) Pulse Ox O2 Delivery O2 Flow Rate FiO2 05/15/18 16:00 98.2 70 19 138/78 (98) 97 05/15/18 09:00 Room Air 05/14/18 01:39 21 Neurologic Exam Objective PHYSICAL EXAMINATION: GENERAL: He is a well-developed relatively well-nourished, gentleman, sitting up in bed, in no acute distress. HEAD: Normocephalic and atraumatic. EENT: Examination benign. NECK: No neck rigidity was observed. NEUROLOGIC EXAMINATION: MENTAL STATUS EXAMINATION: He was awake and alert. He was oriented to self, and May. He did not know the exact date or year. He was able to recall 3/3 words immediately, but only remember 1/3 in 1 and 3 minutes. He knew that Annie is President, but could not remember Presidents prior to that. His mathematical skills were impaired. His visuospatial function was also impaired. SPEECH: He had no dysarthria. LANGUAGE: He was able to comprehend and express himself relatively well. CRANIAL NERVE EXAMINATION: II: The visual bond were intact on confrontation testing. III, IV & : The external ocular movements were full and the pupils 3 mm in diameter, equal, round, regular, and reactive to light. V: He had normal facial sensations and the temporales, masseters, and pterygoids functioned normally. VII: He had normal facial expressions and no facial asymmetry. VIII: He was able to hear well bilaterally and had no nystagmus. IX: The palate moved symmetrically on phonation. X: He had no hoarseness of voice. XI: The sternocleidomastoids and trapezii functioned normally. XII: The tongue was in the midline without any fasciculations or atrophy. MOTOR SYSTEM: The tone was normal in all four extremities. Examination of muscle mass revealed no focal wasting. Examination of power revealed G 5/5 power in all muscle groups tested. SENSORY EXAMINATION: He had intact sensations to pinprick and light touch, but complained of subjective alteration in the distal lower extremities. Position sense was normal in the fingers bilaterally, but was diminished in the toes bilaterally. REFLEXES: Trace+ and bilaterally symmetrical at the biceps, triceps, brachioradialis, and knees, 0 at both ankles. The plantar responses were flexor bilaterally. STANCE: He stood up with a wide base and needed support to stand up. GAIT: He walked with a wide-based but steadier gait with support. Impression/Recommendations Diagnostic Impression 1. Mr. Aleksandra Henderson is a 62-year-old, right-handed, gentleman , who has a long history of hypertension, diabetes mellitus, gastroesophageal reflux disease, alcoholism, and end-stage renal disease, who was hospitalized for an alteration in his mental state on 05/07/2018. Prior to that, he had been imbibing large quantities of alcohol and not eating well. When he was evaluated in the emergency room, his blood sugars were in the 30s and he had alcohol in his system more than 24 hours after he had stopped drinking. 2. Since he has been hospitalized, he has improved, but continues to have significant problems with cognition. 3. He feels better. He is not restless today. He says he slept well last night. He is eating fairly well. He feels that his memory is better. He however is cognitively impoverished. He feels steadier on his feet. He denies any new neurologic symptoms. 4. At this point in time, he is disoriented to date and year. His recent and remote memory is impaired. He also has problems with mathematical skills and visuospatial function. He, however, does not demonstrate any focal or lateralizing neurological findings. Altered sensations are present in both his lower extremities and his position sense is decreased in the toes, but normal in the fingers. His deep tendon reflexes are globally diminished with absent ankle jerks. He stands with a wide base and walks with a wide-based but steadier gait. 5. His laboratory data on my initial evaluation revealed that he is mildly anemic with a hemoglobin of 11.7 G. His latest chemistry panel revealed a sodium low at 127, chloride low at 90, potassium elevated at 5.2, BUN elevated at 54 with a creatinine of 9.3, low calcium at 8.0, an alkaline phosphatase elevated at 125, and a low albumin of 3.1. When the patient came in, his blood glucose was measured at 38. His toxicology screen on his admission revealed a serum alcohol of 32. 6. Further laboratory test have revealed a low Folic acid level. 7. His EEG was normal. [address] revealed atrophy and deep white matter changes, but no acute pathology. 9. The patient's history, neurological examination, and laboratory data are most compatible with severe amnesia with other global cognitive impairment most probably related to an encephalopathy due to alcohol use and possibly hypoglycemia. 10. The patient also has a neuropathic process with significant posterior column dysfunction causing the unsteady gait. 11. He was given IV Thiamine and SC Vitamin B 12 and his cognitive function has improved but is still significantly abnormal. Recommendations 1. Continue present management. 2. Folic acid 1 mg PO q day for deficiency. 3. Attempts should be made to prevent hypoglycemia in the future. 4. The patient was again made aware of the ills of alcohol and advised to stop drinking alcohol immediately. 5. Increase activity. 6. Multiple daily walks. 7. Observe closely. Jurgen Jurado M.D., M.S.P.H. Jurgen Jurado MD May 15, 2018 18:53
[2018-05-15 20:00] VITALS: BP 155/87
--- NOTE | 2018-05-15 23:11 | Infectious Diseases Prog Note ---
Assessment/Plan Assessment/Plan Full consult dictated: staph aureus bacteremia - ? source, doubt fistula sepsis ? pna fevers pmh noted zosyn and vancomycin check wbc scan, check CT abdomen and pelvis, check echo d/w Dr. Ellis and Dr. Cannon will f/u Subjective Allergies: Coded Allergies: No Known Allergies (Unverified , 05/07/18) Objective Vital Signs Last 24 Hour Vital Signs Date Time Temp Pulse Resp B/P (MAP) Pulse Ox O2 Delivery O2 Flow Rate FiO2 05/15/18 21:00 Room Air 05/15/18 20:35 70 138/78 05/15/18 20:00 98.4 79 19 155/87 (109) 97 05/15/18 16:00 98.2 70 19 138/78 (98) 97 05/15/18 12:00 98.4 74 17 142/74 (96) 97 05/15/18 09:00 Room Air 05/15/18 08:45 80 160/80 05/15/18 08:44 80 160/80 05/15/18 08:00 98.5 80 17 160/80 (106) 97 05/15/18 04:00 96.7 79 17 160/80 (106) 97 05/15/18 00:00 97.7 85 18 152/77 (102) 96 Height (Feet): 5 Height (Inches): 7.00 Weight (Pounds): 121 Microbiology Date/Time Source Procedure Growth Status 05/13/18 06:15 Blood Blood Culture - Preliminary Staphylococcus Aureus Resulted 05/13/18 06:00 Blood Blood Culture - Preliminary Staphylococcus Aureus Resulted Current Medications Medications (Trade) Dose Ordered Sig/Palma Route PRN Reason Start Time Stop Time Status Last Admin Dose Admin Acetaminophen (Tylenol) 650 mg Q4H PRN ORAL Mild Pain (Pain Scale 1-3) 05/09/18 21:00 06/06/18 16:59 05/14/18 08:36 Amlodipine Besylate (Norvasc) 10 mg DAILY ORAL 05/14/18 04:16 06/13/18 04:15 05/15/18 08:45 Calcium Acetate (Phoslo) 1,334 mg TIAC ORAL 05/10/18 06:30 06/07/18 06:29 05/15/18 17:28 Dextrose (Dextrose 50%) 25 ml Q30M PRN IV Hypoglycemia 05/09/18 21:00 06/06/18 16:59 Dextrose (Dextrose 50%) 50 ml Q30M PRN IV Hypoglycemia 05/09/18 21:00 06/06/18 16:59 Dextrose/Sodium Chloride 1,000 ml @ 20 mls/hr Q24H IV 05/10/18 17:15 06/09/18 17:14 05/15/18 17:28 Docusate Sodium (Colace) 100 mg EVERY 12 HOURS ORAL 05/09/18 21:00 06/06/18 20:59 05/15/18 20:36 Famotidine (Pepcid) 40 mg DAILY ORAL 05/10/18 09:00 06/07/18 08:59 05/15/18 08:43 Folic Acid (Folate) 1 mg DAILY ORAL 05/11/18 11:00 06/10/18 10:59 05/15/18 08:43 Haloperidol Lactate (Haldol) 5 mg Q6H PRN IM Agitation 05/12/18 21:53 06/11/18 21:52 Heparin Sodium (Porcine) (Heparin 5000 units/ml) 5,000 units EVERY 12 HOURS SUBQ 05/09/18 21:00 06/06/18 20:59 05/15/18 20:35 Heparin Sodium (Porcine) (Heparin Sod 1000 units/ml 10ml) 2,000 unit ONCE PRN IV DIALYSIS 05/15/18 17:16 05/16/18 23:59 Labetalol HCl (Normodyne) 300 mg Q12HR ORAL 05/09/18 21:00 06/06/18 23:14 05/15/18 20:35 Levofloxacin 100 ml @ 100 mls/hr Q48H IVPB 05/13/18 14:00 05/20/18 13:59 05/15/18 12:45 Ondansetron HCl (Zofran) 4 mg Q6H PRN IVP Nausea & Vomiting 05/09/18 21:00 06/06/18 20:59 Piperacillin Sod/ Tazobactam Sod 2.25 gm/Dextrose 55 ml @ 110 mls/hr Q8HR IVPB 05/14/18 22:00 05/19/18 21:59 05/15/18 22:38 Quetiapine Fumarate (SEROquel) 50 mg BEDTIME ORAL 05/13/18 21:00 06/12/18 20:59 05/15/18 20:35 Sodium Chloride 1,000 ml @ 500 mls/hr Q2H PRN IVLG sbp<90 during hd 05/15/18 17:15 05/17/18 23:59 Vancomycin HCl (Vanco rx to dose) 1 ea DAILY PRN MISC Per rx protocol 05/14/18 11:00 06/13/18 10:59 Ethan Piña MD May 15, 2018 23:11
[2018-05-16] VITALS: BP 168/83
[2018-05-16 04:00] VITALS: BP 165/88
[2018-05-16] MEDS: Piperacillin/Tazobactam 2.25 GM in D5W 55 ML IVPB SCH ×2 (05:33→14:41)
[2018-05-16] MEDS: Calcium Acetate 667mg Tab ORAL SCH ×3 (06:02→18:11)
--- NOTE | 2018-05-16 07:02 | General Progress Note ---
Progress Note Progress Note All noted No new complaints No arm pain Left arm avf 2+ thrill cephalic vein aneurysmal chronic No erythema non tender no edema No clinical signs of shunt infection Rec CONY Dwyer CT scan Wbc tag scan Abx per ID HD via avf (avoid aneurysmal areas) d/w pmd and ID Antonio Rodriguez MD May 16, 2018 07:02
[2018-05-16 07:09] LABS: BASOPHILS % (AUTO) 0.4 % (0.0-2.0); EOSINOPHILS % (AUTO) 3.1 % (0.0-3.0); HEMATOCRIT 33.4 % (42.0-52.0); HEMOGLOBIN 10.6 G/DL (14.2-18.0); LYMPHOCYTES % (AUTO) 11.8 % (20.0-45.0); MEAN CORPUSCULAR VOLUME 87 FL (80-99); MONOCYTES % (AUTO) 10.3 % (1.0-10.0); NEUTROPHILS % (AUTO) 74.4 % (45.0-75.0); PLATELET COUNT 219 K/UL (150-450); RED BLOOD COUNT 3.85 M/UL (4.70-6.10); WHITE BLOOD COUNT 5.2 K/UL (4.8-10.8)
[2018-05-16 07:39] LABS: ALANINE AMINOTRANSFERASE 13 U/L (12-78); ALBUMIN 2.6 G/DL (3.4-5.0); ALBUMIN/GLOBULIN RATIO 0.5 (1.0-2.7); ALKALINE PHOSPHATASE 126 U/L (46-116); ANION GAP 14 mmol/L (5-15); ASPARTATE AMINO TRANSFERASE 16 U/L (15-37); BLOOD UREA NITROGEN 51 mg/dL (7-18); CALCIUM 9.1 MG/DL (8.5-10.1); CARBON DIOXIDE 24 MMOL/L (21-32); CHLORIDE 93 MMOL/L (98-107); CREATININE 9.5 MG/DL (0.55-1.30); POTASSIUM 4.9 MMOL/L (3.5-5.1); SODIUM 131 MMOL/L (136-145)
[2018-05-16 08:00] VITALS: BP 171/95
[2018-05-16] MEDS: Docusate 100mg cap ORAL SCH ×2 (08:55→22:24)
[2018-05-16] MEDS: Heparin 5000 units/ml inj SUBQ SCH ×2 (09:05→22:33)
--- NOTE | 2018-05-16 10:10 | Diagnostic Imaging Report ---
Indication: Cough Technique: One view of the chest Comparison: To 01/20/2019 Findings: Bilateral interstitial edema appears somewhat improved but persists. The heart remains enlarged. The pleural spaces remain clear. Impression: Improved but persistent bilateral interstitial edema, over 3 days
--- NOTE | 2018-05-16 12:30 | General Progress Note ---
Assessment/Plan Problem List: (1) encephslopathy acute due to toxinc Assessment/Plan seroquel 50mg po qhs haldol 5mg Im q6hr the pt lacks capacity to make decisions Subjective Neurologic/Psychiatric: Reports: anxiety, depressed, emotional problems Allergies: Coded Allergies: No Known Allergies (Unverified , 05/07/18) Subjective the pt is less agitated disoriented Objective Last 24 Hour Vital Signs Date Time Temp Pulse Resp B/P (MAP) Pulse Ox O2 Delivery O2 Flow Rate FiO2 05/16/18 09:00 Room Air 05/16/18 08:56 82 165/88 05/16/18 08:56 82 165/88 05/16/18 08:00 98.7 89 18 171/95 (120) 93 05/16/18 04:00 98.9 82 17 165/88 (113) 98 05/16/18 00:00 98.7 81 17 168/83 (111) 98 05/15/18 21:00 Room Air 05/15/18 20:35 70 138/78 05/15/18 20:00 98.4 79 19 155/87 (109) 97 05/15/18 16:00 98.2 70 19 138/78 (98) 97 Intake and Output 05/15/18 05/16/18 19:00 07:00 Intake Total 570 ml Balance 570 ml Intake Oral 240 ml IV Total 330 ml # Voids 3 1 Laboratory Tests 05/16/18 05:25: White Blood Count 5.2, Red Blood Count 3.85L, Hemoglobin 10.6L, Hematocrit 33.4L , Mean Corpuscular Volume 87, Mean Corpuscular Hemoglobin 27.6, Mean Corpuscular Hemoglobin Concent 31.8L, Red Cell Distribution Width 15.0H, Platelet Count 219, Mean Platelet Volume 7.1, Neutrophils (%) (Auto) 74.4, Lymphocytes (%) (Auto) 11.8L, Monocytes (%) (Auto) 10.3H, Eosinophils (%) (Auto ) 3.1H, Basophils (%) (Auto) 0.4, Sodium Level 131L, Potassium Level 4.9, Chloride Level 93L, Carbon Dioxide Level 24, Anion Gap 14, Blood Urea Nitrogen 51H, Creatinine 9.5H, Estimat Glomerular Filtration Rate 5.7, Glucose Level 82, Calcium Level 9.1, Total Bilirubin 1.0, Aspartate Amino Transf (AST/SGOT) 16, Alanine Aminotransferase (ALT/SGPT) 13, Alkaline Phosphatase 126H, Total Protein 7.6, Albumin 2.6L, Globulin 5.0, Albumin/Globulin Ratio 0.5L, Random Vancomycin Level 15.7 Height (Feet): 5 Height (Inches): 7.00 Weight (Pounds): 123 General Appearance: alert, confused, agitated Viktoria Evans MD May 16, 2018 12:30
--- NOTE | 2018-05-16 14:30 | Nephrology Progress Note ---
Assessment/Plan Plan Hypoglycemia - on IVF with dextrose. 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 Poor Prognosis. Functional Decline. Needs SNF! CXR CW CHF + Pneumonia with bacteremia! R/O Aspiration pneumonia. Started on IV Abx. Staph Aureus Sepsis! Serious and life-threatening condition. 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 Seen by Vascular Surgery , who thinks the aneurysmatic AVF is not the source. To get CONY!! Subjective Subjective Much more alert! No new c/o Objective Objective Last 24 Hour Vital Signs Date Time Temp Pulse Resp B/P (MAP) Pulse Ox O2 Delivery O2 Flow Rate FiO2 05/16/18 09:00 Room Air 05/16/18 08:56 82 165/88 05/16/18 08:56 82 165/88 05/16/18 08:00 98.7 89 18 171/95 (120) 93 05/16/18 04:00 98.9 82 17 165/88 (113) 98 05/16/18 00:00 98.7 81 17 168/83 (111) 98 05/15/18 21:00 Room Air 05/15/18 20:35 70 138/78 05/15/18 20:00 98.4 79 19 155/87 (109) 97 05/15/18 16:00 98.2 70 19 138/78 (98) 97 Intake and Output 05/15/18 05/16/18 18:59 06:59 Intake Total 570 ml Balance 570 ml Intake Oral 240 ml IV Total 330 ml # Voids 3 1 Laboratory Tests 05/16/18 05:25: White Blood Count 5.2, Red Blood Count 3.85L, Hemoglobin 10.6L, Hematocrit 33.4L , Mean Corpuscular Volume 87, Mean Corpuscular Hemoglobin 27.6, Mean Corpuscular Hemoglobin Concent 31.8L, Red Cell Distribution Width 15.0H, Platelet Count 219, Mean Platelet Volume 7.1, Neutrophils (%) (Auto) 74.4, Lymphocytes (%) (Auto) 11.8L, Monocytes (%) (Auto) 10.3H, Eosinophils (%) (Auto ) 3.1H, Basophils (%) (Auto) 0.4, Sodium Level 131L, Potassium Level 4.9, Chloride Level 93L, Carbon Dioxide Level 24, Anion Gap 14, Blood Urea Nitrogen 51H, Creatinine 9.5H, Estimat Glomerular Filtration Rate 5.7, Glucose Level 82, Calcium Level 9.1, Total Bilirubin 1.0, Aspartate Amino Transf (AST/SGOT) 16, Alanine Aminotransferase (ALT/SGPT) 13, Alkaline Phosphatase 126H, Total Protein 7.6, Albumin 2.6L, Globulin 5.0, Albumin/Globulin Ratio 0.5L, Random Vancomycin Level 15.7 Height (Feet): 5 Height (Inches): 7.00 Weight (Pounds): 123 Objective Cachectic Cv RR Lungs B ronchi Abd SNT. BS + E No CCE. ROSALEE Extremely aneurysmatic AVF Sergio Ellis MD May 16, 2018 14:30
--- NOTE | 2018-05-16 14:46 | Nephrology Progress Note ---
Assessment/Plan Plan Hypoglycemia - on IVF with dextrose. 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 Poor Prognosis. Functional Decline. Needs SNF! CXR CW CHF + Pneumonia with bacteremia! R/O Aspiration pneumonia. Started on IV Abx. Staph Aureus Sepsis! Serious and life-threatening condition. 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 Seen by Vascular Surgery , who thinks the aneurysmatic AVF is not the source. To get CONY!! BC still + GPC. Suspicious for Endocarditis Subjective Subjective Much more alert! No new c/o Objective Objective Last 24 Hour Vital Signs Date Time Temp Pulse Resp B/P (MAP) Pulse Ox O2 Delivery O2 Flow Rate FiO2 05/16/18 09:00 Room Air 05/16/18 08:56 82 165/88 05/16/18 08:56 82 165/88 05/16/18 08:00 98.7 89 18 171/95 (120) 93 05/16/18 04:00 98.9 82 17 165/88 (113) 98 05/16/18 00:00 98.7 81 17 168/83 (111) 98 05/15/18 21:00 Room Air 05/15/18 20:35 70 138/78 05/15/18 20:00 98.4 79 19 155/87 (109) 97 05/15/18 16:00 98.2 70 19 138/78 (98) 97 Intake and Output 05/15/18 05/16/18 19:00 07:00 Intake Total 570 ml Balance 570 ml Intake Oral 240 ml IV Total 330 ml # Voids 3 1 Laboratory Tests 05/16/18 05:25: White Blood Count 5.2, Red Blood Count 3.85L, Hemoglobin 10.6L, Hematocrit 33.4L , Mean Corpuscular Volume 87, Mean Corpuscular Hemoglobin 27.6, Mean Corpuscular Hemoglobin Concent 31.8L, Red Cell Distribution Width 15.0H, Platelet Count 219, Mean Platelet Volume 7.1, Neutrophils (%) (Auto) 74.4, Lymphocytes (%) (Auto) 11.8L, Monocytes (%) (Auto) 10.3H, Eosinophils (%) (Auto ) 3.1H, Basophils (%) (Auto) 0.4, Sodium Level 131L, Potassium Level 4.9, Chloride Level 93L, Carbon Dioxide Level 24, Anion Gap 14, Blood Urea Nitrogen 51H, Creatinine 9.5H, Estimat Glomerular Filtration Rate 5.7, Glucose Level 82, Calcium Level 9.1, Total Bilirubin 1.0, Aspartate Amino Transf (AST/SGOT) 16, Alanine Aminotransferase (ALT/SGPT) 13, Alkaline Phosphatase 126H, Total Protein 7.6, Albumin 2.6L, Globulin 5.0, Albumin/Globulin Ratio 0.5L, Random Vancomycin Level 15.7 Height (Feet): 5 Height (Inches): 7.00 Weight (Pounds): 123 Objective Cachectic Cv RR Lungs B gideonchi Abd SNT. BS + E No CCE. ROSALEE Extremely aneurysmatic AVF Sergio Ellis MD May 16, 2018 14:46
[2018-05-16 16:00] VITALS: BP 138/80
[2018-05-16] MEDS: D5NS 1,000 ML IV SCH (17:15)
--- NOTE | 2018-05-16 17:55 | Neurology Progress Note ---
Interim History Interim History Interim History Mr. Tong Henderson feels relatively well. He says he slept well last night. He is eating his dinner now and his is visiting him. He feels that his memory is better. He however is still cognitively impoverished. He feels steadier on his feet. He denies any new neurologic symptoms. He says he had dialysis today. Review of Systems Neuro Review of Systems Benign. Objective Physical Exam Last Vital Signs Date Time Temp Pulse Resp B/P (MAP) Pulse Ox O2 Delivery O2 Flow Rate FiO2 05/16/18 16:00 97.5 83 19 138/80 (99) 93 05/16/18 09:00 Room Air 05/14/18 01:39 21 Laboratory Tests Test 05/16/18 05:25 White Blood Count 5.2 K/UL (4.8-10.8) Red Blood Count 3.85 M/UL (4.70-6.10) L Hemoglobin 10.6 G/DL (14.2-18.0) L Hematocrit 33.4 % (42.0-52.0) L Mean Corpuscular Volume 87 FL (80-99) Mean Corpuscular Hemoglobin 27.6 PG (27.0-31.0) Mean Corpuscular Hemoglobin Concent 31.8 G/DL (32.0-36.0) L Red Cell Distribution Width 15.0 % (11.6-14.8) H Platelet Count 219 K/UL (150-450) Mean Platelet Volume 7.1 FL (6.5-10.1) Neutrophils (%) (Auto) 74.4 % (45.0-75.0) Lymphocytes (%) (Auto) 11.8 % (20.0-45.0) L Monocytes (%) (Auto) 10.3 % (1.0-10.0) H Eosinophils (%) (Auto) 3.1 % (0.0-3.0) H Basophils (%) (Auto) 0.4 % (0.0-2.0) Sodium Level 131 MMOL/L (136-145) L Potassium Level 4.9 MMOL/L (3.5-5.1) Chloride Level 93 MMOL/L (98-107) L Carbon Dioxide Level 24 MMOL/L (21-32) Anion Gap 14 mmol/L (5-15) Blood Urea Nitrogen 51 mg/dL (7-18) H Creatinine 9.5 MG/DL (0.55-1.30) H Estimat Glomerular Filtration Rate 5.7 mL/min (>60) Glucose Level 82 MG/DL (74-106) Calcium Level 9.1 MG/DL (8.5-10.1) Total Bilirubin 1.0 MG/DL (0.2-1.0) Aspartate Amino Transf (AST/SGOT) 16 U/L (15-37) Alanine Aminotransferase (ALT/SGPT) 13 U/L (12-78) Alkaline Phosphatase 126 U/L (46-116) H Total Protein 7.6 G/DL (6.4-8.2) Albumin 2.6 G/DL (3.4-5.0) L Globulin 5.0 g/dL Albumin/Globulin Ratio 0.5 (1.0-2.7) L Random Vancomycin Level 15.7 ug/mL Neurologic Exam Objective PHYSICAL EXAMINATION: GENERAL: He is a well-developed relatively well-nourished, gentleman, sitting up in bed, in no acute distress. HEAD: Normocephalic and atraumatic. EENT: Examination benign. NECK: No neck rigidity was observed. NEUROLOGIC EXAMINATION: MENTAL STATUS EXAMINATION: He was awake and alert. He was oriented to self, Mclean and May. He did not know the exact date or year. He was able to recall 3/3 words immediately, but only remember 1/3 in 1 and 3 minutes. He was able to remember Presidents Trump and Obama only with hints. His mathematical skills were impaired. His visuospatial function was also impaired. SPEECH: He had no dysarthria. LANGUAGE: He was able to comprehend and express himself relatively well. CRANIAL NERVE EXAMINATION: II: The visual bond were intact on confrontation testing. III, IV & : The external ocular movements were full and the pupils 3 mm in diameter, equal, round, regular, and reactive to light. V: He had normal facial sensations and the temporales, masseters, and pterygoids functioned normally. VII: He had normal facial expressions and no facial asymmetry. VIII: He was able to hear well bilaterally and had no nystagmus. IX: The palate moved symmetrically on phonation. X: He had no hoarseness of voice. XI: The sternocleidomastoids and trapezii functioned normally. XII: The tongue was in the midline without any fasciculations or atrophy. MOTOR SYSTEM: The tone was normal in all four extremities. Examination of muscle mass revealed no focal wasting. Examination of power revealed G 5/5 power in all muscle groups tested. SENSORY EXAMINATION: He had intact sensations to pinprick and light touch, but complained of subjective alteration in the distal lower extremities. Position sense was normal in the fingers bilaterally, but was diminished in the toes bilaterally. REFLEXES: Trace+ and bilaterally symmetrical at the biceps, triceps, brachioradialis, and knees, 0 at both ankles. The plantar responses were flexor bilaterally. STANCE: He stood up with a wide base with contact guard. GAIT: He walked with a wide-based but steadier gait with contact guard. Impression/Recommendations Diagnostic Impression 1. Mr. Aleksandra Henderson is a 62-year-old, right-handed, gentleman , who has a long history of hypertension, diabetes mellitus, gastroesophageal reflux disease, alcoholism, and end-stage renal disease, who was hospitalized for an alteration in his mental state on 05/07/2018. Prior to that, he had been imbibing large quantities of alcohol and not eating well. When he was evaluated in the emergency room, his blood sugars were in the 30s and he had alcohol in his system more than 24 hours after he had stopped drinking. 2. Since he has been hospitalized, he has improved, but continues to have significant problems with cognition. 3. He feels relatively well. He says he slept well last night. He is eating his dinner now and his is visiting him. He feels that his memory is better. He however is still cognitively impoverished. He feels steadier on his feet. He denies any new neurologic symptoms. He says he had dialysis today. 4. At this point in time, he is disoriented to date and year. His recent and remote memory is impaired. He also has problems with mathematical skills and visuospatial function. He, however, does not demonstrate any focal or lateralizing neurological findings. Altered sensations are present in both his lower extremities and his position sense is decreased in the toes, but normal in the fingers. His deep tendon reflexes are globally diminished with absent ankle jerks. He stands with a wide base and walks with a wide-based but steadier gait. 5. His laboratory data on my initial evaluation revealed that he is mildly anemic with a hemoglobin of 11.7 G. His latest chemistry panel revealed a sodium low at 127, chloride low at 90, potassium elevated at 5.2, BUN elevated at 54 with a creatinine of 9.3, low calcium at 8.0, an alkaline phosphatase elevated at 125, and a low albumin of 3.1. When the patient came in, his blood glucose was measured at 38. His toxicology screen on his admission revealed a serum alcohol of 32. 6. Further laboratory test have revealed a low Folic acid level. 7. His EEG was normal. [address] revealed atrophy and deep white matter changes, but no acute pathology. 9. The patient's history, neurological examination, and laboratory data are most compatible with severe amnesia with other global cognitive impairment most probably related to an encephalopathy due to alcohol use and possibly hypoglycemia. 10. The patient also has a neuropathic process with significant posterior column dysfunction causing the unsteady gait. 11. He was given IV Thiamine and SC Vitamin B 12 and his cognitive function has improved but is still significantly abnormal. Recommendations 1. Continue present management. 2. Folic acid 1 mg PO q day for deficiency. 3. Attempts should be made to prevent hypoglycemia in the future. 4. The patient was again made aware of the ills of alcohol and advised to stop drinking alcohol immediately. 5. Increase activity. 6. Multiple daily walks. 7. Observe closely. Jurgen Jurado M.D., M.S.P.H. Jurgen Jurado MD May 16, 2018 17:55
[2018-05-16 18:03] LABS: BASOPHILS % (AUTO) 0.8 % (0.0-2.0); EOSINOPHILS % (AUTO) 1.9 % (0.0-3.0); HEMATOCRIT 34.2 % (42.0-52.0); HEMOGLOBIN 10.5 G/DL (14.2-18.0); LYMPHOCYTES % (AUTO) 11.9 % (20.0-45.0); MEAN CORPUSCULAR VOLUME 88 FL (80-99); MONOCYTES % (AUTO) 10.1 % (1.0-10.0); NEUTROPHILS % (AUTO) 75.3 % (45.0-75.0); PLATELET COUNT 245 K/UL (150-450); RED BLOOD COUNT 3.89 M/UL (4.70-6.10); RED CELL DISTRIBUTION WIDTH 14.9 % (11.6-14.8); WHITE BLOOD COUNT 4.8 K/UL (4.8-10.8)
[2018-05-16 18:17] LABS: ANION GAP 11 mmol/L (5-15); BLOOD UREA NITROGEN 26 mg/dL (7-18); CALCIUM 9.4 MG/DL (8.5-10.1); CARBON DIOXIDE 26 MMOL/L (21-32); CHLORIDE 100 MMOL/L (98-107); CREATININE 6.3 MG/DL (0.55-1.30); POTASSIUM 4.2 MMOL/L (3.5-5.1); SODIUM 137 MMOL/L (136-145)
--- NOTE | 2018-05-16 18:56 | Infectious Diseases Prog Note ---
Assessment/Plan Assessment/Plan ASSESSMENT AND PLAN: 1. staph aureus bacteremia, sepsis, fevers, ? source staph aureus bacteremia - change antibiotic to Ancef - CONY, CT abdomen and pelvis, wbc scan - check surveillance blood cultures - monitor labs - d/w Dr. Ellis and Dr. Rodriguez 2. MRSA colonization and isolation. 3. Anemia. 4. End-stage disease, pulmonary edema -on hemodialysis. 5. AV fistula. 6. Diabetes type 2. Blood sugar treatment per Dr. Ellis. 7. Hypertension. 8. Hypertensive heart disease and cardiovascular disease. 9. Blood pressure treatment per Dr. Ellis. 10. Gastroesophageal reflux disease. 11. Anemia. 12. Elevated creatinine. 13. Possible dyslipidemia. 14. Skin care protocol. 15. Past medical history noted. 16. Case discussed with Dr. Ellis. 17. No known drug allergies. 18. Social history is positive for ETOH abuse. 19. Family history is noncontributory. 20. MAR was noted. 21. Case discussed with RN. 22. Continue treatment per primary consultants. 23. Notes and records were noted . 24. Orders were entered. Subjective Constitutional: Denies: fever HEENT: Denies: congestion Respiratory: Denies: shortness of breath Cardiovascular: Denies: chest pain Gastrointestinal/Abdominal: Denies: nausea, vomiting, diarrhea, constipation Genitourinary: Reports: other - no cva pain Neurologic: Denies: headache Psychiatric: Denies: depression Skin: Denies: rash Hematologic: Denies: bleeding Musculoskeletal: Denies: pain Allergies: Coded Allergies: No Known Allergies (Unverified , 05/07/18) Objective Vital Signs Last 24 Hour Vital Signs Date Time Temp Pulse Resp B/P (MAP) Pulse Ox O2 Delivery O2 Flow Rate FiO2 05/16/18 16:00 97.5 83 19 138/80 (99) 93 05/16/18 09:00 Room Air 05/16/18 08:56 82 165/88 05/16/18 08:56 82 165/88 05/16/18 08:00 98.7 89 18 171/95 (120) 93 05/16/18 04:00 98.9 82 17 165/88 (113) 98 05/16/18 00:00 98.7 81 17 168/83 (111) 98 05/15/18 21:00 Room Air 05/15/18 20:35 70 138/78 05/15/18 20:00 98.4 79 19 155/87 (109) 97 Height (Feet): 5 Height (Inches): 7.00 Weight (Pounds): 123 General Appearance: no acute distress HEENT: normocephalic, atraumatic, anicteric, mucous membranes moist Respiratory/Chest: no respiratory distress, no accessory muscle use, crackles/ rales, rhonchi - bilaterally Cardiovascular: normal rate, regular rhythm, no gallop/murmur, no JVD Abdomen: normal bowel sounds, soft, non tender, no organomegaly, non distended Genitourinary: other - no aguirre, no cva pain Extremities: no cyanosis Skin: no rash Neurologic/Psychiatric: 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 The heart remains enlarged. The pleural spaces remain clear. Impression: Improved but persistent bilateral interstitial edema, over 3 days Microbiology Date/Time Source Procedure Growth Status 05/14/18 21:00 Blood Blood Culture - Preliminary NO GROWTH AFTER 24 HOURS Resulted 05/07/18 11:00 Nasal Nares MRSA Culture - Final Staphylococcus Aureus - Mrsa Complete 05/07/18 11:00 Rectum VRE Culture - Final NO VANCOMYCIN RESISTANT ENTEROCOCCUS ... Complete Microbiology Date/Time Source Procedure Growth Status 05/14/18 21:00 Blood Blood Culture - Preliminary NO GROWTH AFTER 24 HOURS Resulted 05/14/18 21:00 Blood Blood Culture - Preliminary Resulted Laboratory Tests Test 05/16/18 05:25 05/16/18 17:30 White Blood Count 5.2 K/UL (4.8-10.8) 4.8 K/UL (4.8-10.8) Red Blood Count 3.85 M/UL (4.70-6.10) L 3.89 M/UL (4.70-6.10) L Hemoglobin 10.6 G/DL (14.2-18.0) L 10.5 G/DL (14.2-18.0) L Hematocrit 33.4 % (42.0-52.0) L 34.2 % (42.0-52.0) L Mean Corpuscular Volume 87 FL (80-99) 88 FL (80-99) Mean Corpuscular Hemoglobin 27.6 PG (27.0-31.0) 27.1 PG (27.0-31.0) Mean Corpuscular Hemoglobin Concent 31.8 G/DL (32.0-36.0) L 30.8 G/DL (32.0-36.0) L Red Cell Distribution Width 15.0 % (11.6-14.8) H 14.9 % (11.6-14.8) H Platelet Count 219 K/UL (150-450) 245 K/UL (150-450) Mean Platelet Volume 7.1 FL (6.5-10.1) 6.6 FL (6.5-10.1) Neutrophils (%) (Auto) 74.4 % (45.0-75.0) 75.3 % (45.0-75.0) H Lymphocytes (%) (Auto) 11.8 % (20.0-45.0) L 11.9 % (20.0-45.0) L Monocytes (%) (Auto) 10.3 % (1.0-10.0) H 10.1 % (1.0-10.0) H Eosinophils (%) (Auto) 3.1 % (0.0-3.0) H 1.9 % (0.0-3.0) Basophils (%) (Auto) 0.4 % (0.0-2.0) 0.8 % (0.0-2.0) Sodium Level 131 MMOL/L (136-145) L 137 MMOL/L (136-145) Potassium Level 4.9 MMOL/L (3.5-5.1) 4.2 MMOL/L (3.5-5.1) Chloride Level 93 MMOL/L (98-107) L 100 MMOL/L (98-107) Carbon Dioxide Level 24 MMOL/L (21-32) 26 MMOL/L (21-32) Anion Gap 14 mmol/L (5-15) 11 mmol/L (5-15) Blood Urea Nitrogen 51 mg/dL (7-18) H 26 mg/dL (7-18) H Creatinine 9.5 MG/DL (0.55-1.30) H 6.3 MG/DL (0.55-1.30) H Estimat Glomerular Filtration Rate 5.7 mL/min (>60) 9.1 mL/min (>60) Glucose Level 82 MG/DL (74-106) 110 MG/DL (74-106) H Calcium Level 9.1 MG/DL (8.5-10.1) 9.4 MG/DL (8.5-10.1) Total Bilirubin 1.0 MG/DL (0.2-1.0) Aspartate Amino Transf (AST/SGOT) 16 U/L (15-37) Alanine Aminotransferase (ALT/SGPT) 13 U/L (12-78) Alkaline Phosphatase 126 U/L (46-116) H Total Protein 7.6 G/DL (6.4-8.2) Albumin 2.6 G/DL (3.4-5.0) L Globulin 5.0 g/dL Albumin/Globulin Ratio 0.5 (1.0-2.7) L Random Vancomycin Level 15.7 ug/mL Current Medications Medications (Trade) Dose Ordered Sig/Palma Route PRN Reason Start Time Stop Time Status Last Admin Dose Admin Acetaminophen (Tylenol) 650 mg Q4H PRN ORAL Mild Pain (Pain Scale 1-3) 05/09/18 21:00 06/06/18 16:59 05/14/18 08:36 Amlodipine Besylate (Norvasc) 10 mg DAILY ORAL 05/14/18 04:16 06/13/18 04:15 05/16/18 08:56 Calcium Acetate (Phoslo) 1,334 mg TIAC ORAL 05/10/18 06:30 06/07/18 06:29 05/16/18 18:11 Dextrose (Dextrose 50%) 25 ml Q30M PRN IV Hypoglycemia 05/09/18 21:00 06/06/18 16:59 Dextrose (Dextrose 50%) 50 ml Q30M PRN IV Hypoglycemia 05/09/18 21:00 06/06/18 16:59 Dextrose/Sodium Chloride 1,000 ml @ 20 mls/hr Q24H IV 05/10/18 17:15 06/09/18 17:14 05/15/18 17:28 Docusate Sodium (Colace) 100 mg EVERY 12 HOURS ORAL 05/09/18 21:00 06/06/18 20:59 05/16/18 08:55 Famotidine (Pepcid) 40 mg DAILY ORAL 05/10/18 09:00 06/07/18 08:59 05/16/18 08:56 Folic Acid (Folate) 1 mg DAILY ORAL 05/11/18 11:00 06/10/18 10:59 05/16/18 08:55 Haloperidol Lactate (Haldol) 5 mg Q6H PRN IM Agitation 05/12/18 21:53 06/11/18 21:52 Heparin Sodium (Porcine) (Heparin 5000 units/ml) 5,000 units EVERY 12 HOURS SUBQ 05/09/18 21:00 06/06/18 20:59 05/16/18 09:05 Heparin Sodium (Porcine) (Heparin Sod 1000 units/ml 10ml) 2,000 unit ONCE PRN IV DIALYSIS 05/15/18 17:16 05/16/18 23:59 Labetalol HCl (Normodyne) 300 mg Q12HR ORAL 05/09/18 21:00 06/06/18 23:14 05/16/18 08:56 Ondansetron HCl (Zofran) 4 mg Q6H PRN IVP Nausea & Vomiting 05/09/18 21:00 06/06/18 20:59 Quetiapine Fumarate (SEROquel) 50 mg BEDTIME ORAL 05/13/18 21:00 06/12/18 20:59 05/15/18 20:35 Sodium Chloride 1,000 ml @ 500 mls/hr Q2H PRN IVLG sbp<90 during hd 05/15/18 17:15 05/17/18 23:59 Ethan Piña MD May 16, 2018 18:56
[2018-05-16 20:00] VITALS: BP 162/80
[2018-05-16] MEDS ORDERED: ceFAZolin 2gm/50ml Premix 50 ML IV SCH (20:00)
[2018-05-16] MEDS ORDERED: Vancomycin 1gm/D5W 275ml IVPB SCH ×2 (20:00)
[2018-05-16] MEDS ORDERED: Vancomycin 1gm/D5W 275ml IVPB ONE ×2 (20:00)
--- NOTE | 2018-05-16 22:56 | Cardiology Progress Note ---
Subjective Subjective the patient with staph bacteremia and CHF. will proceed with TTE and CONY. Objective Last 24 Hour Vital Signs Date Time Temp Pulse Resp B/P (MAP) Pulse Ox O2 Delivery O2 Flow Rate FiO2 05/16/18 16:00 97.5 83 19 138/80 (99) 93 05/16/18 09:00 Room Air 05/16/18 08:56 82 165/88 05/16/18 08:56 82 165/88 05/16/18 08:00 98.7 89 18 171/95 (120) 93 05/16/18 04:00 98.9 82 17 165/88 (113) 98 05/16/18 00:00 98.7 81 17 168/83 (111) 98 Intake and Output 05/15/18 05/16/18 19:00 07:00 Intake Total 570 ml Balance 570 ml Intake Oral 240 ml IV Total 330 ml # Voids 3 1 Laboratory Tests Test 05/16/18 05:25 05/16/18 17:30 White Blood Count 5.2 K/UL (4.8-10.8) 4.8 K/UL (4.8-10.8) Red Blood Count 3.85 M/UL (4.70-6.10) L 3.89 M/UL (4.70-6.10) L Hemoglobin 10.6 G/DL (14.2-18.0) L 10.5 G/DL (14.2-18.0) L Hematocrit 33.4 % (42.0-52.0) L 34.2 % (42.0-52.0) L Mean Corpuscular Volume 87 FL (80-99) 88 FL (80-99) Mean Corpuscular Hemoglobin 27.6 PG (27.0-31.0) 27.1 PG (27.0-31.0) Mean Corpuscular Hemoglobin Concent 31.8 G/DL (32.0-36.0) L 30.8 G/DL (32.0-36.0) L Red Cell Distribution Width 15.0 % (11.6-14.8) H 14.9 % (11.6-14.8) H Platelet Count 219 K/UL (150-450) 245 K/UL (150-450) Mean Platelet Volume 7.1 FL (6.5-10.1) 6.6 FL (6.5-10.1) Neutrophils (%) (Auto) 74.4 % (45.0-75.0) 75.3 % (45.0-75.0) H Lymphocytes (%) (Auto) 11.8 % (20.0-45.0) L 11.9 % (20.0-45.0) L Monocytes (%) (Auto) 10.3 % (1.0-10.0) H 10.1 % (1.0-10.0) H Eosinophils (%) (Auto) 3.1 % (0.0-3.0) H 1.9 % (0.0-3.0) Basophils (%) (Auto) 0.4 % (0.0-2.0) 0.8 % (0.0-2.0) Sodium Level 131 MMOL/L (136-145) L 137 MMOL/L (136-145) Potassium Level 4.9 MMOL/L (3.5-5.1) 4.2 MMOL/L (3.5-5.1) Chloride Level 93 MMOL/L (98-107) L 100 MMOL/L (98-107) Carbon Dioxide Level 24 MMOL/L (21-32) 26 MMOL/L (21-32) Anion Gap 14 mmol/L (5-15) 11 mmol/L (5-15) Blood Urea Nitrogen 51 mg/dL (7-18) H 26 mg/dL (7-18) H Creatinine 9.5 MG/DL (0.55-1.30) H 6.3 MG/DL (0.55-1.30) H Estimat Glomerular Filtration Rate 5.7 mL/min (>60) 9.1 mL/min (>60) Glucose Level 82 MG/DL (74-106) 110 MG/DL (74-106) H Calcium Level 9.1 MG/DL (8.5-10.1) 9.4 MG/DL (8.5-10.1) Total Bilirubin 1.0 MG/DL (0.2-1.0) Aspartate Amino Transf (AST/SGOT) 16 U/L (15-37) Alanine Aminotransferase (ALT/SGPT) 13 U/L (12-78) Alkaline Phosphatase 126 U/L (46-116) H Total Protein 7.6 G/DL (6.4-8.2) Albumin 2.6 G/DL (3.4-5.0) L Globulin 5.0 g/dL Albumin/Globulin Ratio 0.5 (1.0-2.7) L Random Vancomycin Level 15.7 ug/mL Microbiology Date/Time Source Procedure Growth Status 05/14/18 21:00 Blood Blood Culture - Preliminary NO GROWTH AFTER 24 HOURS Resulted 05/14/18 21:00 Blood Blood Culture - Preliminary Resulted Anastasia Barboza MD May 16, 2018 22:56
[2018-05-17] VITALS: BP 164/84
[2018-05-17 04:00] VITALS: BP 161/83
[2018-05-17] MEDS: Calcium Acetate 667mg Tab ORAL SCH ×3 (05:53→17:24)
[2018-05-17 07:03] LABS: INR 1.3 (0.9-1.1)
[2018-05-17 07:17] LABS: ANION GAP 12 mmol/L (5-15); BLOOD UREA NITROGEN 29 mg/dL (7-18); CALCIUM 8.9 MG/DL (8.5-10.1); CARBON DIOXIDE 26 MMOL/L (21-32); CHLORIDE 98 MMOL/L (98-107); CREATININE 7.3 MG/DL (0.55-1.30); SODIUM 136 MMOL/L (136-145)
[2018-05-17 07:25] LABS: BASOPHILS % (AUTO) 0.4 % (0.0-2.0); EOSINOPHILS % (AUTO) 2.1 % (0.0-3.0); LYMPHOCYTES % (AUTO) 12.4 % (20.0-45.0); MEAN CORPUSCULAR VOLUME 88 FL (80-99); MONOCYTES % (AUTO) 9.6 % (1.0-10.0); NEUTROPHILS % (AUTO) 75.6 % (45.0-75.0); PLATELET COUNT 238 K/UL (150-450); RED BLOOD COUNT 3.65 M/UL (4.70-6.10)
[2018-05-17 08:00] VITALS: BP 158/86
[2018-05-17] MEDS: Heparin 5000 units/ml inj SUBQ SCH ×2 (09:00→21:32)
[2018-05-17] MEDS: Docusate 100mg cap ORAL SCH ×2 (09:06→21:00)
--- NOTE | 2018-05-17 09:21 | Cardiology Progress Note ---
Subjective Subjective the patient with staph bacteremia and CHF. will proceed with TTE and CONY. Objective Last 24 Hour Vital Signs Date Time Temp Pulse Resp B/P (MAP) Pulse Ox O2 Delivery O2 Flow Rate FiO2 05/17/18 09:07 83 161/83 05/17/18 09:07 83 161/83 05/17/18 04:00 97.9 83 18 161/83 (109) 97 05/17/18 00:00 97.8 84 18 164/84 (110) 96 05/16/18 22:31 83 162/80 05/16/18 21:00 Room Air 05/16/18 20:00 97.5 83 18 162/80 (107) 98 05/16/18 16:00 97.5 83 19 138/80 (99) 93 Intake and Output 05/16/18 05/17/18 19:00 07:00 Intake Total 360 ml 200 ml Balance 360 ml 200 ml Intake Oral 360 ml 200 ml # Voids 3 # Bowel Movements 1 Laboratory Tests Test 05/16/18 17:30 05/17/18 05:10 White Blood Count 4.8 K/UL (4.8-10.8) 6.0 K/UL (4.8-10.8) Red Blood Count 3.89 M/UL (4.70-6.10) L 3.65 M/UL (4.70-6.10) L Hemoglobin 10.5 G/DL (14.2-18.0) L 10.0 G/DL (14.2-18.0) L Hematocrit 34.2 % (42.0-52.0) L 32.0 % (42.0-52.0) L Mean Corpuscular Volume 88 FL (80-99) 88 FL (80-99) Mean Corpuscular Hemoglobin 27.1 PG (27.0-31.0) 27.4 PG (27.0-31.0) Mean Corpuscular Hemoglobin Concent 30.8 G/DL (32.0-36.0) L 31.3 G/DL (32.0-36.0) L Red Cell Distribution Width 14.9 % (11.6-14.8) H 15.0 % (11.6-14.8) H Platelet Count 245 K/UL (150-450) 238 K/UL (150-450) Mean Platelet Volume 6.6 FL (6.5-10.1) 6.6 FL (6.5-10.1) Neutrophils (%) (Auto) 75.3 % (45.0-75.0) H 75.6 % (45.0-75.0) H Lymphocytes (%) (Auto) 11.9 % (20.0-45.0) L 12.4 % (20.0-45.0) L Monocytes (%) (Auto) 10.1 % (1.0-10.0) H 9.6 % (1.0-10.0) Eosinophils (%) (Auto) 1.9 % (0.0-3.0) 2.1 % (0.0-3.0) Basophils (%) (Auto) 0.8 % (0.0-2.0) 0.4 % (0.0-2.0) Sodium Level 137 MMOL/L (136-145) 136 MMOL/L (136-145) Potassium Level 4.2 MMOL/L (3.5-5.1) 4.0 MMOL/L (3.5-5.1) Chloride Level 100 MMOL/L (98-107) 98 MMOL/L (98-107) Carbon Dioxide Level 26 MMOL/L (21-32) 26 MMOL/L (21-32) Anion Gap 11 mmol/L (5-15) 12 mmol/L (5-15) Blood Urea Nitrogen 26 mg/dL (7-18) H 29 mg/dL (7-18) H Creatinine 6.3 MG/DL (0.55-1.30) H 7.3 MG/DL (0.55-1.30) H Estimat Glomerular Filtration Rate 9.1 mL/min (>60) 7.7 mL/min (>60) Glucose Level 110 MG/DL (74-106) H 78 MG/DL (74-106) Calcium Level 9.4 MG/DL (8.5-10.1) 8.9 MG/DL (8.5-10.1) Prothrombin Time 13.2 SEC (9.30-11.50) H Prothromb Time International Ratio 1.3 (0.9-1.1) H Troponin I 0.004 ng/mL (0.000-0.056) Microbiology Date/Time Source Procedure Growth Status 05/14/18 21:00 Blood Blood Culture - Preliminary NO GROWTH AFTER 24 HOURS Resulted 05/14/18 21:00 Blood Blood Culture - Preliminary Resulted Anastasia Barboza MD May 17, 2018 09:21
[2018-05-17 12:00] VITALS: BP 138/76
--- NOTE | 2018-05-17 12:46 | Diagnostic Imaging Report ---
Clinical Indication: Abdominal pain Technique: Patient given enteric contrast. IV administration nonionic contrast. Venous phase spiral acquisition obtained through the abdomen and pelvis. Multiplanar reconstructions were generated. Total dose length product 578.69 mGycm. CTDIvol(s) 11.42 mGy. Dose reduction achieved using automated exposure control Comparison: 03/15/2018. Also reference made to recent abdominal sonogram 05/09/2018 Findings: On the previous exam, there was a large acute left perinephric hematoma. Current exam demonstrates collection surrounding the periphery of the left kidney which is circumferential around the outer 180 degrees of the kidney, measures approximately 16 mm thick, is mostly hypoattenuating with a hyperattenuating rim. Posterior to the lower pole of the right kidney, there is a focal collection which measures 18 mm in diameter and is contiguous with the perinephric collection. This is in the area of a previous extension of the large hematoma. Along the anterior Gerota's fascia, there is a circumscribed collection with enhancing rim which measures 4.3 cm transverse by 2.2 cm AP by 3.3 cm craniocaudad. This is in an area occupied by a previously much larger component of the perinephric hematoma. The left kidney is atrophic, demonstrates extensive vascular calcification, but is otherwise normal in morphology and enhances normally for an end-stage kidney. It is symmetrical with the contralateral side. Both kidneys demonstrate cysts as well as subcentimeter low-attenuation lesions which are too small to characterize. The liver is mildly enlarged. The gallbladder is nondistended, demonstrates edema of the wall. No definite gallstones are demonstrated. No biliary ductal dilatation. The pancreas, spleen, adrenals are unremarkable. There is an accessory splenule again demonstrated There are some prominent but not frankly enlarged retroperitoneal lymph nodes. No pelvic mass or adenopathy. Normal for age prostate and seminal vesicles. The bladder is nondistended. No evidence of diverticulosis or diverticulitis. The appendix is not demonstrated, but there are no findings to suggest acute appendicitis. No small bowel distention. Contrast has traversed the entirety of the small bowel and the entirety of the colon, indicating absence of obstructive pathology. No small bowel wall thickening. Previously demonstrated free intraperitoneal fluid is no longer evident. No free intraperitoneal gas. Included lung bases demonstrate fairly extensive areas of consolidation and atelectasis in the lower lobes posteriorly bilaterally. There is a small amount of pleural fluid present on the left. The heart is enlarged. The bones demonstrate degenerative spondylosis changes. Soft tissue nodules are seen in the anterior abdominal wall subcutaneous fat, presumably related to prior injections Impression: Fluid collection with enhancing rim seen circumferentially surrounding the outer 180 degrees of the left kidney, presumably residual from previously demonstrated large perinephric and retroperitoneal hematoma 2 other perinephric collections as described, in areas corresponding to previously demonstrated large retroperitoneal/perinephric, presumably residual from such. Appearance of these and the above collection are nonspecific as regards whether or not they are infected Atrophic bilateral kidneys, consistent with known history of chronic renal failure Bilateral renal cysts and subcentimeter low-attenuation renal lesions, too small to characterize most likely benign simple cysts. No further follow-up necessary Mild hepatomegaly, also described on recent ultrasound Gallbladder wall edema, without evidence of stones. Nonspecific, possibility of acalculous acute cholecystitis should be considered. Consider hepatobiliary nuclear scan for further evaluation if there is high clinical suspicion for such Interim resolution of previously demonstrated free intraperitoneal fluid Fairly extensive bilateral basilar lower lobe pulmonary parenchymal consolidation and atelectasis. Small amount of pleural fluid on the left Cardiomegaly Incidental findings as noted The CT scanner at [facility] is accredited by the [employer] and the scans are performed using protocols designed to limit radiation exposure to as low as reasonably achievable to attain images of sufficient resolution adequate for diagnostic evaluation.
--- NOTE | 2018-05-17 13:30 | General Progress Note ---
Assessment/Plan Problem List: (1) encephslopathy acute due to toxinc Status: stable Assessment/Plan seroquel 50mg po qhs haldol 5mg Im q6hr the pt lacks capacity to make decisions Subjective Neurologic/Psychiatric: Reports: anxiety, depressed Allergies: Coded Allergies: No Known Allergies (Unverified , 05/07/18) Subjective not agitated disoriented Objective Last 24 Hour Vital Signs Date Time Temp Pulse Resp B/P (MAP) Pulse Ox O2 Delivery O2 Flow Rate FiO2 05/17/18 12:27 Room Air 05/17/18 12:00 98.2 81 18 138/76 (96) 98 05/17/18 09:07 83 161/83 05/17/18 09:07 83 161/83 05/17/18 09:00 Room Air 05/17/18 08:00 99.6 86 18 158/86 (110) 98 05/17/18 04:00 97.9 83 18 161/83 (109) 97 05/17/18 00:00 97.8 84 18 164/84 (110) 96 05/16/18 22:31 83 162/80 05/16/18 21:00 Room Air 05/16/18 20:00 97.5 83 18 162/80 (107) 98 05/16/18 16:00 97.5 83 19 138/80 (99) 93 Intake and Output 05/16/18 05/17/18 19:00 07:00 Intake Total 360 ml 200 ml Balance 360 ml 200 ml Intake Oral 360 ml 200 ml # Voids 3 # Bowel Movements 1 Laboratory Tests 05/16/18 17:30: White Blood Count 4.8, Red Blood Count 3.89L, Hemoglobin 10.5L, Hematocrit 34.2L , Mean Corpuscular Volume 88, Mean Corpuscular Hemoglobin 27.1, Mean Corpuscular Hemoglobin Concent 30.8L, Red Cell Distribution Width 14.9H, Platelet Count 245, Mean Platelet Volume 6.6, Neutrophils (%) (Auto) 75.3H, Lymphocytes (%) (Auto) 11.9L, Monocytes (%) (Auto) 10.1H, Eosinophils (%) (Auto ) 1.9, Basophils (%) (Auto) 0.8, Sodium Level 137, Potassium Level 4.2, Chloride Level 100, Carbon Dioxide Level 26, Anion Gap 11, Blood Urea Nitrogen 26H, Creatinine 6.3H, Estimat Glomerular Filtration Rate 9.1, Glucose Level 110H , Calcium Level 9.4 05/17/18 05:10: White Blood Count 6.0, Red Blood Count 3.65L, Hemoglobin 10.0L, Hematocrit 32.0L , Mean Corpuscular Volume 88, Mean Corpuscular Hemoglobin 27.4, Mean Corpuscular Hemoglobin Concent 31.3L, Red Cell Distribution Width 15.0H, Platelet Count 238, Mean Platelet Volume 6.6, Neutrophils (%) (Auto) 75.6H, Lymphocytes (%) (Auto) 12.4L, Monocytes (%) (Auto) 9.6, Eosinophils (%) (Auto) 2.1, Basophils (%) (Auto) 0.4, Sodium Level 136, Potassium Level 4.0, Chloride Level 98, Carbon Dioxide Level 26, Anion Gap 12, Blood Urea Nitrogen 29H, Creatinine 7.3H, Estimat Glomerular Filtration Rate 7.7, Glucose Level 78, Calcium Level 8.9, Prothrombin Time 13.2H, Prothromb Time International Ratio 1.3H, Troponin I 0.004 Height (Feet): 5 Height (Inches): 7.00 Weight (Pounds): 123 General Appearance: WD/WN, no apparent distress, alert Neurologic: responsive Viktoria Evans MD May 17, 2018 13:30
--- NOTE | 2018-05-17 15:30 | Consultation ---
DATE OF CONSULTATION: 05/16/2018 CARDIOLOGY CONSULTATION CONSULTING PHYSICIAN: Anastasia Barboza M.D. REASON FOR EVALUATION: Rule out endocarditis. HISTORY OF PRESENT ILLNESS: The patient is a gentleman who was admitted because of poor compliance He was not dialyzed for several days and he came with a heart failure. He is poor historian. He was dialyzed here and stabilized, but the blood culture showed Staph aureus in his blood in two different sets. The patient himself is a poor historian. He denies any significant history of fever, chills, palpitations, syncope, or orthopnea. PAST MEDICAL HISTORY: In addition to being on dialysis, end-stage renal disease. He also has liver cirrhosis, probably alcoholic. He has chronic alcohol abuse, pulmonary hypertension, confusion, and probably dementia caused by alcohol. ALLERGIES: Not documented. MEDICATIONS: His medications were all reviewed. HABITS: Again he is heavy drinker and poor compliance with dialysis. He denies any smoking or illegal drug abuse. REVIEW OF SYSTEMS: As said, essentially unremarkable, although, the patient is very poor historian. His left arm fistula for dialysis is functional. PHYSICAL EXAMINATION: VITAL SIGNS: This is a chronically ill-appearing gentleman, older than stated age. VITAL SIGNS: Blood pressure 160/80. His heart rate is 80. His oxygen saturation on room air is 98%. Temperature 97.5. HEENT: PERRLA. EOMI. NECK: Neck veins have very distended up to 13 centimeters. Carotid upstroke is present. LUNGS: He has scattered crackles bilaterally. HEART: Regular. PMI is in the seventh intercostal space in anterior axillary line. He has holosystolic murmur 3/6 along the left sternal border. He also has a very loud bruit on the left side of his chest and his arm. He has a huge fistula on the left arm. His abdomen is soft, slightly tender. Liver is 2 centimeters below costal margin. No ascites. EXTREMITIES: Lower extremity, no edema. NEUROLOGIC: His neurologic exam appears to be nonfocal. LABORATORY AND DIAGNOSTIC DATA: Laboratory panel reviewed. He grows Staph aureus from his blood from 2 sets of cultures, one on 05/07/2018 and 05/13/2013. His last BUN is 26, creatinine 6.3, the rest of the electrolytes not abnormal. Albumin 2.6. Hemoglobin is 4.10, WBC 4.8, and platelets 245. His EKG shows sinus rhythm with left ventricular hypertrophy. Chest x-ray revealed bilateral interstitial edema. IMPRESSION AND RECOMMENDATION: This patient with chronic dialysis, alcoholic liver cirrhosis, and positive blood cultures. He is at high risk for endocarditis. We are going to do transthoracic echo and then also a transesophageal echocardiogram that is going to be discussed with the patient and his family. Thank you very much for your referral. Anastasia Barboza M.D. DR: Karolina JOB#: [id number] CC:
[2018-05-17 16:00] VITALS: BP 138/73
[2018-05-17] MEDS: D5NS 1,000 ML IV SCH (17:24)
--- NOTE | 2018-05-17 17:51 | Nephrology Progress Note ---
Assessment/Plan Plan Hypoglycemia - on IVF with dextrose. 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 Poor Prognosis. Functional Decline. Needs SNF! CXR CW CHF + Pneumonia with bacteremia! R/O Aspiration pneumonia. Started on IV Abx. Staph Aureus Sepsis! Serious and life-threatening condition. To get CONY!! BC still + Staph Aureus Suspicious for Endocarditis Subjective Subjective Much more alert! No new c/o Objective Objective Last 24 Hour Vital Signs Date Time Temp Pulse Resp B/P (MAP) Pulse Ox O2 Delivery O2 Flow Rate FiO2 05/17/18 16:00 97.7 77 18 138/73 (94) 97 05/17/18 12:27 Room Air 05/17/18 12:00 98.2 81 18 138/76 (96) 98 05/17/18 09:07 83 161/83 05/17/18 09:07 83 161/83 05/17/18 09:00 Room Air 05/17/18 08:00 99.6 86 18 158/86 (110) 98 05/17/18 04:00 97.9 83 18 161/83 (109) 97 05/17/18 00:00 97.8 84 18 164/84 (110) 96 05/16/18 22:31 83 162/80 05/16/18 21:00 Room Air 05/16/18 20:00 97.5 83 18 162/80 (107) 98 Intake and Output 05/16/18 05/17/18 19:00 07:00 Intake Total 360 ml 200 ml Balance 360 ml 200 ml Intake Oral 360 ml 200 ml # Voids 3 # Bowel Movements 1 Laboratory Tests 05/17/18 05:10: White Blood Count 6.0, Red Blood Count 3.65L, Hemoglobin 10.0L, Hematocrit 32.0L , Mean Corpuscular Volume 88, Mean Corpuscular Hemoglobin 27.4, Mean Corpuscular Hemoglobin Concent 31.3L, Red Cell Distribution Width 15.0H, Platelet Count 238, Mean Platelet Volume 6.6, Neutrophils (%) (Auto) 75.6H, Lymphocytes (%) (Auto) 12.4L, Monocytes (%) (Auto) 9.6, Eosinophils (%) (Auto) 2.1, Basophils (%) (Auto) 0.4, Prothrombin Time 13.2H, Prothromb Time International Ratio 1.3H, Sodium Level 136, Potassium Level 4.0, Chloride Level 98, Carbon Dioxide Level 26, Anion Gap 12, Blood Urea Nitrogen 29H, Creatinine 7.3H, Estimat Glomerular Filtration Rate 7.7, Glucose Level 78, Calcium Level 8.9, Troponin I 0.004 Height (Feet): 5 Height (Inches): 7.00 Weight (Pounds): 123 Objective Cachectic Cv RR Lungs B ronchi Abd SNT. BS + E No CCE. ROSALEE Extremely aneurysmatic AVF Sergio Ellis MD May 17, 2018 17:51
--- NOTE | 2018-05-17 18:28 | Neurology Progress Note ---
Interim History Interim History Interim History Mr. Tong Henderson feels better. He slept well last night. He is eating well. He feels that his memory is better. He however is still cognitively impoverished. He feels steadier on his feet when he walks. He denies any new neurologic symptoms. His also sees an improvement in his mind. Review of Systems Neuro Review of Systems Benign. Objective Physical Exam Last Vital Signs Date Time Temp Pulse Resp B/P (MAP) Pulse Ox O2 Delivery O2 Flow Rate FiO2 05/17/18 16:00 97.7 77 18 138/73 (94) 97 05/17/18 12:27 Room Air 05/14/18 01:39 21 Laboratory Tests Test 05/17/18 05:10 White Blood Count 6.0 K/UL (4.8-10.8) Red Blood Count 3.65 M/UL (4.70-6.10) L Hemoglobin 10.0 G/DL (14.2-18.0) L Hematocrit 32.0 % (42.0-52.0) L Mean Corpuscular Volume 88 FL (80-99) Mean Corpuscular Hemoglobin 27.4 PG (27.0-31.0) Mean Corpuscular Hemoglobin Concent 31.3 G/DL (32.0-36.0) L Red Cell Distribution Width 15.0 % (11.6-14.8) H Platelet Count 238 K/UL (150-450) Mean Platelet Volume 6.6 FL (6.5-10.1) Neutrophils (%) (Auto) 75.6 % (45.0-75.0) H Lymphocytes (%) (Auto) 12.4 % (20.0-45.0) L Monocytes (%) (Auto) 9.6 % (1.0-10.0) Eosinophils (%) (Auto) 2.1 % (0.0-3.0) Basophils (%) (Auto) 0.4 % (0.0-2.0) Prothrombin Time 13.2 SEC (9.30-11.50) H Prothromb Time International Ratio 1.3 (0.9-1.1) H Sodium Level 136 MMOL/L (136-145) Potassium Level 4.0 MMOL/L (3.5-5.1) Chloride Level 98 MMOL/L (98-107) Carbon Dioxide Level 26 MMOL/L (21-32) Anion Gap 12 mmol/L (5-15) Blood Urea Nitrogen 29 mg/dL (7-18) H Creatinine 7.3 MG/DL (0.55-1.30) H Estimat Glomerular Filtration Rate 7.7 mL/min (>60) Glucose Level 78 MG/DL (74-106) Calcium Level 8.9 MG/DL (8.5-10.1) Troponin I 0.004 ng/mL (0.000-0.056) Neurologic Exam Objective PHYSICAL EXAMINATION: GENERAL: He is a well-developed relatively well-nourished, gentleman, sitting up in bed, in no acute distress. HEAD: Normocephalic and atraumatic. EENT: Examination benign. NECK: No neck rigidity was observed. NEUROLOGIC EXAMINATION: MENTAL STATUS EXAMINATION: He was awake and alert. He was oriented to self, Summer and May 2018. He did not know the exact date. He was able to recall 3/3 words immediately, but only remember 1/3 in 1 and 3 minutes. He was able to remember Presidents Trump and Obama only with hints. His mathematical skills were impaired. His visuospatial function was also impaired. SPEECH: He had no dysarthria. LANGUAGE: He was able to comprehend and express himself relatively well. CRANIAL NERVE EXAMINATION: II: The visual bond were intact on confrontation testing. III, IV & : The external ocular movements were full and the pupils 3 mm in diameter, equal, round, regular, and reactive to light. V: He had normal facial sensations and the temporales, masseters, and pterygoids functioned normally. VII: He had normal facial expressions and no facial asymmetry. VIII: He was able to hear well bilaterally and had no nystagmus. IX: The palate moved symmetrically on phonation. X: He had no hoarseness of voice. XI: The sternocleidomastoids and trapezii functioned normally. XII: The tongue was in the midline without any fasciculations or atrophy. MOTOR SYSTEM: The tone was normal in all four extremities. Examination of muscle mass revealed no focal wasting. Examination of power revealed G 5/5 power in all muscle groups tested. SENSORY EXAMINATION: He had intact sensations to pinprick and light touch, but complained of subjective alteration in the distal lower extremities. Position sense was normal in the fingers bilaterally, but was diminished in the toes bilaterally. REFLEXES: Trace+ and bilaterally symmetrical at the biceps, triceps, brachioradialis, and knees, 0 at both ankles. The plantar responses were flexor bilaterally. STANCE: He stood up with a wide base with contact guard. GAIT: He walked with a wide-based but steadier gait with contact guard. Impression/Recommendations Diagnostic Impression 1. Mr. Aleksandra Henderson is a 62-year-old, right-handed, gentleman , who has a long history of hypertension, diabetes mellitus, gastroesophageal reflux disease, alcoholism, and end-stage renal disease, who was hospitalized for an alteration in his mental state on 05/07/2018. Prior to that, he had been imbibing large quantities of alcohol and not eating well. When he was evaluated in the emergency room, his blood sugars were in the 30s and he had alcohol in his system more than 24 hours after he had stopped drinking. 2. Since he has been hospitalized, he has improved, but continues to have significant problems with cognition. 3. He feels better. He slept well last night. He is eating well. He feels that his memory is better. He however is still cognitively impoverished. He feels steadier on his feet when he walks. He denies any new neurologic symptoms. His also sees an improvement in his mind. 4. At this point in time, he is disoriented to date. His recent and remote memory is impaired. He also has problems with mathematical skills and visuospatial function. He, however, does not demonstrate any focal or lateralizing neurological findings. Altered sensations are present in both his lower extremities and his position sense is decreased in the toes, but normal in the fingers. His deep tendon reflexes are globally diminished with absent ankle jerks. He stands with a wide base and walks with a wide-based but steadier gait. 5. His laboratory data on my initial evaluation revealed that he is mildly anemic with a hemoglobin of 11.7 G. His latest chemistry panel revealed a sodium low at 127, chloride low at 90, potassium elevated at 5.2, BUN elevated at 54 with a creatinine of 9.3, low calcium at 8.0, an alkaline phosphatase elevated at 125, and a low albumin of 3.1. When the patient came in, his blood glucose was measured at 38. His toxicology screen on his admission revealed a serum alcohol of 32. 6. Further laboratory test have revealed a low Folic acid level. 7. His EEG was normal. [address] revealed atrophy and deep white matter changes, but no acute pathology. 9. The patient's history, neurological examination, and laboratory data are most compatible with severe amnesia with other global cognitive impairment most probably related to an encephalopathy due to alcohol use and possibly hypoglycemia. 10. The patient also has a neuropathic process with significant posterior column dysfunction causing the unsteady gait. 11. He was given IV Thiamine and SC Vitamin B 12 and his cognitive function has improved but is still significantly abnormal. Recommendations 1. Continue present management. 2. Folic acid 1 mg PO q day for deficiency. 3. Attempts should be made to prevent hypoglycemia in the future. 4. The patient was again made aware of the ills of alcohol and advised to stop drinking alcohol immediately. 5. Increase activity. 6. Multiple daily walks. 7. Observe closely. Jurgen Jurado M.D., M.S.P.H. Jurgen Jurado MD May 17, 2018 18:28
[2018-05-17 20:00] VITALS: BP 157/79
[2018-05-18] VITALS (7 sets, daily range): BP systolic 127–166; BP diastolic 67–84
[2018-05-18] MEDS ORDERED: Heparin Sod 1000 units/ml 10ml IV PRN (06:00)
[2018-05-18] MEDS: Calcium Acetate 667mg Tab ORAL SCH ×3 (06:11→17:21)
[2018-05-18 07:55] LABS: ANION GAP 12 mmol/L (5-15); BLOOD UREA NITROGEN 36 mg/dL (7-18); CALCIUM 9.3 MG/DL (8.5-10.1); CARBON DIOXIDE 24 MMOL/L (21-32); CHLORIDE 97 MMOL/L (98-107); CREATININE 9.3 MG/DL (0.55-1.30); PHOSPHORUS 3.7 MG/DL (2.5-4.9); POTASSIUM 4.8 MMOL/L (3.5-5.1); SODIUM 133 MMOL/L (136-145)
[2018-05-18 08:16] LABS: BASOPHILS % (AUTO) 0.6 % (0.0-2.0); EOSINOPHILS % (AUTO) 3.3 % (0.0-3.0); HEMATOCRIT 31.8 % (42.0-52.0); LYMPHOCYTES % (AUTO) 12.4 % (20.0-45.0); MEAN CORPUSCULAR VOLUME 88 FL (80-99); MONOCYTES % (AUTO) 8.5 % (1.0-10.0); NEUTROPHILS % (AUTO) 75.2 % (45.0-75.0); PLATELET COUNT 266 K/UL (150-450); RED BLOOD COUNT 3.61 M/UL (4.70-6.10); RED CELL DISTRIBUTION WIDTH 15.5 % (11.6-14.8); WHITE BLOOD COUNT 6.2 K/UL (4.8-10.8)
[2018-05-18] MEDS: Docusate 100mg cap ORAL SCH ×2 (08:47→21:07)
[2018-05-18] MEDS: Heparin 5000 units/ml inj SUBQ SCH ×2 (08:48→21:10)
--- NOTE | 2018-05-18 13:39 | Neurology Progress Note ---
Interim History Interim History Interim History Mr. Tong Henderson feels better. He says slept well last night. He says he is eating well. He feels that his memory is about the same. He is still cognitively impoverished. He feels steadier on his feet when he walks. He denies any new neurologic symptoms. Review of Systems Neuro Review of Systems Benign. Objective Physical Exam Last Vital Signs Date Time Temp Pulse Resp B/P (MAP) Pulse Ox O2 Delivery O2 Flow Rate FiO2 05/18/18 12:00 97.9 72 18 166/84 (111) 98 05/18/18 09:00 Room Air 05/14/18 01:39 21 Laboratory Tests Test 05/18/18 06:18 White Blood Count 6.2 K/UL (4.8-10.8) Red Blood Count 3.61 M/UL (4.70-6.10) L Hemoglobin 10.0 G/DL (14.2-18.0) L Hematocrit 31.8 % (42.0-52.0) L Mean Corpuscular Volume 88 FL (80-99) Mean Corpuscular Hemoglobin 27.8 PG (27.0-31.0) Mean Corpuscular Hemoglobin Concent 31.5 G/DL (32.0-36.0) L Red Cell Distribution Width 15.5 % (11.6-14.8) H Platelet Count 266 K/UL (150-450) Mean Platelet Volume 6.8 FL (6.5-10.1) Neutrophils (%) (Auto) 75.2 % (45.0-75.0) H Lymphocytes (%) (Auto) 12.4 % (20.0-45.0) L Monocytes (%) (Auto) 8.5 % (1.0-10.0) Eosinophils (%) (Auto) 3.3 % (0.0-3.0) H Basophils (%) (Auto) 0.6 % (0.0-2.0) Sodium Level 133 MMOL/L (136-145) L Potassium Level 4.8 MMOL/L (3.5-5.1) Chloride Level 97 MMOL/L (98-107) L Carbon Dioxide Level 24 MMOL/L (21-32) Anion Gap 12 mmol/L (5-15) Blood Urea Nitrogen 36 mg/dL (7-18) H Creatinine 9.3 MG/DL (0.55-1.30) H Estimat Glomerular Filtration Rate 5.8 mL/min (>60) Glucose Level 73 MG/DL (74-106) L Calcium Level 9.3 MG/DL (8.5-10.1) Phosphorus Level 3.7 MG/DL (2.5-4.9) Random Vancomycin Level 28.4 ug/mL Neurologic Exam Objective PHYSICAL EXAMINATION: GENERAL: He is a well-developed relatively well-nourished, gentleman, lying in bed, in no acute distress. HEAD: Normocephalic and atraumatic. EENT: Examination benign. NECK: No neck rigidity was observed. NEUROLOGIC EXAMINATION: MENTAL STATUS EXAMINATION: He was awake and alert. He was oriented to self, and May. He did not know the date or year. He was able to recall 3/3 words immediately, but only remember 1/3 in 1 and 3 minutes. He was able to remember Presidents Trump and Obama only with hints. His mathematical skills were impaired. His visuospatial function was also impaired. SPEECH: He had no dysarthria. LANGUAGE: He was able to comprehend and express himself relatively well. CRANIAL NERVE EXAMINATION: II: The visual bond were intact on confrontation testing. III, IV & : The external ocular movements were full and the pupils 3 mm in diameter, equal, round, regular, and reactive to light. V: He had normal facial sensations and the temporales, masseters, and pterygoids functioned normally. VII: He had normal facial expressions and no facial asymmetry. VIII: He was able to hear well bilaterally and had no nystagmus. IX: The palate moved symmetrically on phonation. X: He had no hoarseness of voice. XI: The sternocleidomastoids and trapezii functioned normally. XII: The tongue was in the midline without any fasciculations or atrophy. MOTOR SYSTEM: The tone was normal in all four extremities. Examination of muscle mass revealed no focal wasting. Examination of power revealed G 5/5 power in all muscle groups tested. SENSORY EXAMINATION: He had intact sensations to pinprick and light touch, but complained of subjective alteration in the distal lower extremities. Position sense was normal in the fingers bilaterally, but was diminished in the toes bilaterally. REFLEXES: Trace+ and bilaterally symmetrical at the biceps, triceps, brachioradialis, and knees, 0 at both ankles. The plantar responses were flexor bilaterally. STANCE: He stood up with a wide base with contact guard. GAIT: He walked with a wide-based but steadier gait with contact guard. Impression/Recommendations Diagnostic Impression 1. Mr. Aleksandra Henderson is a 62-year-old, right-handed, gentleman , who has a long history of hypertension, diabetes mellitus, gastroesophageal reflux disease, alcoholism, and end-stage renal disease, who was hospitalized for an alteration in his mental state on 05/07/2018. Prior to that, he had been imbibing large quantities of alcohol and not eating well. When he was evaluated in the emergency room, his blood sugars were in the 30s and he had alcohol in his system more than 24 hours after he had stopped drinking. 2. Since he has been hospitalized, he has improved, but continues to have significant problems with cognition. 3. He feels better. He says slept well last night. He says he is eating well. He feels that his memory is about the same. He is still cognitively impoverished. He feels steadier on his feet when he walks. He denies any new neurologic symptoms. 4. At this point in time, he is disoriented to date. His recent and remote memory is impaired. He also has problems with mathematical skills and visuospatial function. He, however, does not demonstrate any focal or lateralizing neurological findings. Altered sensations are present in both his lower extremities and his position sense is decreased in the toes, but normal in the fingers. His deep tendon reflexes are globally diminished with absent ankle jerks. He stands with a wide base and walks with a wide-based but steadier gait. 5. His laboratory data on my initial evaluation revealed that he is mildly anemic with a hemoglobin of 11.7 G. His latest chemistry panel revealed a sodium low at 127, chloride low at 90, potassium elevated at 5.2, BUN elevated at 54 with a creatinine of 9.3, low calcium at 8.0, an alkaline phosphatase elevated at 125, and a low albumin of 3.1. When the patient came in, his blood glucose was measured at 38. His toxicology screen on his admission revealed a serum alcohol of 32. 6. Further laboratory test have revealed a low Folic acid level. 7. His EEG was normal. [address] revealed atrophy and deep white matter changes, but no acute pathology. 9. The patient's history, neurological examination, and laboratory data are most compatible with severe amnesia with other global cognitive impairment most probably related to an encephalopathy due to alcohol use and possibly hypoglycemia. 10. The patient also has a neuropathic process with significant posterior column dysfunction causing the unsteady gait. 11. He was given IV Thiamine and SC Vitamin B 12 and his cognitive function has improved but is still significantly abnormal. Recommendations 1. Continue present management. 2. Folic acid 1 mg PO q day for deficiency. 3. Attempts should be made to prevent hypoglycemia in the future. 4. The patient was again made aware of the ills of alcohol and advised to stop drinking alcohol immediately. 5. Increase activity. 6. Multiple daily walks. 7. Observe closely. Jurgen Jurado M.D., M.S.P.H. Jurgen Jurado MD May 18, 2018 13:39
--- NOTE | 2018-05-18 15:44 | Nephrology Progress Note ---
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 Poor Prognosis. Functional Decline. Needs SNF! CXR CW CHF + Pneumonia with bacteremia! R/O Aspiration pneumonia. Started on IV Abx. Staph Aureus Sepsis! Serious and life-threatening condition. To get CONY!! BC still + Staph Aureus Suspicious for Endocarditis Subjective Subjective Much more alert! No new c/o Objective Objective Last 24 Hour Vital Signs Date Time Temp Pulse Resp B/P (MAP) Pulse Ox O2 Delivery O2 Flow Rate FiO2 05/18/18 13:00 83 148/73 (98) 05/18/18 12:00 97.9 72 18 166/84 (111) 98 05/18/18 09:00 Room Air 05/18/18 08:47 80 127/78 05/18/18 08:46 80 127/78 05/18/18 08:00 97.7 80 17 127/78 (94) 97 05/18/18 04:00 98.1 76 18 136/71 (92) 100 05/18/18 00:00 97.9 77 18 158/76 (103) 100 05/17/18 21:33 81 157/79 05/17/18 21:00 Room Air 05/17/18 20:00 98.0 81 18 157/79 (105) 99 05/17/18 16:00 97.7 77 18 138/73 (94) 97 Intake and Output 05/17/18 05/18/18 19:00 07:00 Intake Total 640 ml 410 ml Balance 640 ml 410 ml Intake Oral 640 ml 250 ml IV Total 160 ml # Voids 4 1 # Bowel Movements 3 Laboratory Tests 05/18/18 06:18: White Blood Count 6.2, Red Blood Count 3.61L, Hemoglobin 10.0L, Hematocrit 31.8L , Mean Corpuscular Volume 88, Mean Corpuscular Hemoglobin 27.8, Mean Corpuscular Hemoglobin Concent 31.5L, Red Cell Distribution Width 15.5H, Platelet Count 266, Mean Platelet Volume 6.8, Neutrophils (%) (Auto) 75.2H, Lymphocytes (%) (Auto) 12.4L, Monocytes (%) (Auto) 8.5, Eosinophils (%) (Auto) 3.3H, Basophils (%) (Auto) 0.6, Sodium Level 133L, Potassium Level 4.8, Chloride Level 97L, Carbon Dioxide Level 24, Anion Gap 12, Blood Urea Nitrogen 36H, Creatinine 9.3H, Estimat Glomerular Filtration Rate 5.8, Glucose Level 73L , Calcium Level 9.3, Phosphorus Level 3.7, Random Vancomycin Level 28.4 Height (Feet): 5 Height (Inches): 7.00 Weight (Pounds): 122 Objective Cachectic Cv RR Lungs B abiel Glaser SNT. BS + E No CCE. ROSALEE Extremely aneurysmatic AVF Sergio Ellis MD May 18, 2018 15:44
[2018-05-18] MEDS: NovoLOG Insulin Flexpen SUBQ SCH ×2 (16:30→21:11)
[2018-05-18] MEDS: D5NS 1,000 ML IV SCH (17:15)
--- NOTE | 2018-05-18 19:28 | Infectious Diseases Prog Note ---
Assessment/Plan Assessment/Plan ASSESSMENT AND PLAN: 1. staph aureus/MSSA bacteremia, sepsis, fevers, ? source staph aureus bacteremia, ? endocarditis - Ancef iv - CONY, wbc scan - CT abdomen and pelvis without abscess - check surveillance blood cultures - monitor labs - d/w Dr. Ellis and Dr. Rodriguez - d/w pharmacy 2. MRSA colonization and isolation. 3. Anemia. 4. End-stage disease, pulmonary edema -on hemodialysis. 5. AV fistula. 6. Diabetes type 2. Blood sugar treatment per Dr. Ellis. 7. Hypertension. 8. Hypertensive heart disease and cardiovascular disease. 9. Blood pressure treatment per Dr. Ellis. 10. Gastroesophageal reflux disease. 11. Anemia. 12. Elevated creatinine. 13. Possible dyslipidemia. 14. Skin care protocol. 15. Past medical history noted. 16. Case discussed with Dr. Ellis. 17. No known drug allergies. 18. Social history is positive for ETOH abuse. 19. Family history is noncontributory. 20. MAR was noted. 21. Case discussed with RN. 22. Continue treatment per primary consultants. 23. Notes and records were noted . 24. Orders were entered. Subjective Constitutional: Denies: fever HEENT: Denies: congestion Respiratory: Denies: shortness of breath Cardiovascular: Denies: chest pain Gastrointestinal/Abdominal: Denies: nausea, vomiting, diarrhea Genitourinary: Reports: other - no aguirre - + hd patient Neurologic: Denies: headache Psychiatric: Denies: depression Skin: Denies: rash Hematologic: Denies: bleeding Musculoskeletal: Denies: pain Allergies: Coded Allergies: No Known Allergies (Unverified , 05/07/18) Objective Vital Signs Last 24 Hour Vital Signs Date Time Temp Pulse Resp B/P (MAP) Pulse Ox O2 Delivery O2 Flow Rate FiO2 05/18/18 16:00 98.8 81 19 139/67 (91) 97 05/18/18 13:00 83 148/73 (98) 05/18/18 12:00 97.9 72 18 166/84 (111) 98 05/18/18 09:00 Room Air 05/18/18 08:47 80 127/78 05/18/18 08:46 80 127/78 05/18/18 08:00 97.7 80 17 127/78 (94) 97 05/18/18 04:00 98.1 76 18 136/71 (92) 100 05/18/18 00:00 97.9 77 18 158/76 (103) 100 05/17/18 21:33 81 157/79 05/17/18 21:00 Room Air 05/17/18 20:00 98.0 81 18 157/79 (105) 99 Height (Feet): 5 Height (Inches): 7.00 Weight (Pounds): 122 General Appearance: no acute distress HEENT: normocephalic, atraumatic, anicteric, mucous membranes moist Respiratory/Chest: lungs clear, normal breath sounds, no respiratory distress, no accessory muscle use Cardiovascular: normal rate, regular rhythm, no gallop/murmur, no JVD Abdomen: normal bowel sounds, soft, non tender, no organomegaly, non distended Extremities: no cyanosis Skin: no rash Neurologic/Psychiatric: towel folder II-XII grossly normal, alert, oriented x 3, responsive Lymphatic: no neck adenopathy Musculoskeletal: no effusion Objective Chest x-ray - 05/16/18 - Technique: One view of the chest Comparison: To 01/20/2019 Findings: Bilateral interstitial edema appears somewhat improved but persists. The heart remains enlarged. The pleural spaces remain clear. Impression: Improved but persistent bilateral interstitial edema, over [address] abdomen and pelvis: Impression: Fluid collection with enhancing rim seen circumferentially surrounding the outer 180 degrees of the left kidney, presumably residual from previously demonstrated large perinephric and retroperitoneal hematoma 2 other perinephric collections as described, in areas corresponding to previously demonstrated large retroperitoneal/perinephric, presumably residual from such. Appearance of these and the above collection are nonspecific as regards whether or not they are infected Atrophic bilateral kidneys, consistent with known history of chronic renal failure Bilateral renal cysts and subcentimeter low-attenuation renal lesions, too small to characterize most likely benign simple cysts. No further follow-up necessary Mild hepatomegaly, also described on recent ultrasound Gallbladder wall edema, without evidence of stones. Nonspecific, possibility of acalculous acute cholecystitis should be considered. Consider hepatobiliary nuclear scan for further evaluation if there is high clinical suspicion for such Interim resolution of previously demonstrated free intraperitoneal fluid Fairly extensive bilateral basilar lower lobe pulmonary parenchymal consolidation and atelectasis. Small amount of pleural fluid on the left Cardiomegaly Incidental findings as noted Microbiology Date/Time Source Procedure Growth Status 05/14/18 21:00 Blood Blood Culture - Preliminary NO GROWTH AFTER 72 HOURS Resulted 05/07/18 11:00 Nasal Nares MRSA Culture - Final Staphylococcus Aureus - Mrsa Complete 05/07/18 11:00 Rectum VRE Culture - Final NO VANCOMYCIN RESISTANT ENTEROCOCCUS ... Complete BC - mssa Laboratory Tests Test 05/18/18 06:18 White Blood Count 6.2 K/UL (4.8-10.8) Red Blood Count 3.61 M/UL (4.70-6.10) L Hemoglobin 10.0 G/DL (14.2-18.0) L Hematocrit 31.8 % (42.0-52.0) L Mean Corpuscular Volume 88 FL (80-99) Mean Corpuscular Hemoglobin 27.8 PG (27.0-31.0) Mean Corpuscular Hemoglobin Concent 31.5 G/DL (32.0-36.0) L Red Cell Distribution Width 15.5 % (11.6-14.8) H Platelet Count 266 K/UL (150-450) Mean Platelet Volume 6.8 FL (6.5-10.1) Neutrophils (%) (Auto) 75.2 % (45.0-75.0) H Lymphocytes (%) (Auto) 12.4 % (20.0-45.0) L Monocytes (%) (Auto) 8.5 % (1.0-10.0) Eosinophils (%) (Auto) 3.3 % (0.0-3.0) H Basophils (%) (Auto) 0.6 % (0.0-2.0) Sodium Level 133 MMOL/L (136-145) L Potassium Level 4.8 MMOL/L (3.5-5.1) Chloride Level 97 MMOL/L (98-107) L Carbon Dioxide Level 24 MMOL/L (21-32) Anion Gap 12 mmol/L (5-15) Blood Urea Nitrogen 36 mg/dL (7-18) H Creatinine 9.3 MG/DL (0.55-1.30) H Estimat Glomerular Filtration Rate 5.8 mL/min (>60) Glucose Level 73 MG/DL (74-106) L Calcium Level 9.3 MG/DL (8.5-10.1) Phosphorus Level 3.7 MG/DL (2.5-4.9) Random Vancomycin Level 28.4 ug/mL Current Medications Medications (Trade) Dose Ordered Sig/Palma Route PRN Reason Start Time Stop Time Status Last Admin Dose Admin Acetaminophen (Tylenol) 650 mg Q4H PRN ORAL Mild Pain (Pain Scale 1-3) 05/09/18 21:00 06/06/18 16:59 05/14/18 08:36 Amlodipine Besylate (Norvasc) 10 mg DAILY ORAL 05/14/18 04:16 06/13/18 04:15 05/18/18 08:47 Calcium Acetate (Phoslo) 1,334 mg TIAC ORAL 05/10/18 06:30 06/07/18 06:29 05/18/18 17:21 Dextrose (Dextrose 50%) 25 ml Q30M PRN IV Hypoglycemia 05/18/18 16:15 06/17/18 16:14 Dextrose (Dextrose 50%) 50 ml Q30M PRN IV Hypoglycemia 05/18/18 16:15 06/17/18 16:14 Dextrose/Sodium Chloride 1,000 ml @ 20 mls/hr Q24H IV 05/10/18 17:15 06/09/18 17:14 05/17/18 17:24 Docusate Sodium (Colace) 100 mg EVERY 12 HOURS ORAL 05/09/18 21:00 06/06/18 20:59 05/18/18 08:47 Famotidine (Pepcid) 40 mg DAILY ORAL 05/10/18 09:00 06/07/18 08:59 05/18/18 08:47 Folic Acid (Folate) 1 mg DAILY ORAL 05/11/18 11:00 06/10/18 10:59 05/18/18 08:47 Haloperidol Lactate (Haldol) 5 mg Q6H PRN IM Agitation 05/12/18 21:53 06/11/18 21:52 Heparin Sodium (Porcine) (Heparin 5000 units/ml) 5,000 units EVERY 12 HOURS SUBQ 05/09/18 21:00 06/06/18 20:59 05/18/18 08:48 Heparin Sodium (Porcine) (Heparin Sod 1000 units/ml 10ml) 2,000 unit ONCE PRN IV DIALYSIS 05/18/18 06:00 05/18/18 23:59 Insulin Aspart (NovoLOG) BEFORE MEALS AND HS SUBQ 05/18/18 16:30 06/17/18 16:29 Labetalol HCl (Normodyne) 300 mg Q12HR ORAL 05/09/18 21:00 06/06/18 23:14 05/18/18 08:46 Ondansetron HCl (Zofran) 4 mg Q6H PRN IVP Nausea & Vomiting 05/09/18 21:00 06/06/18 20:59 Quetiapine Fumarate (SEROquel) 50 mg BEDTIME ORAL 05/13/18 21:00 06/12/18 20:59 05/17/18 21:33 Sodium Chloride 1,000 ml @ 500 mls/hr Q2H PRN IVLG sbp<90 during hd 05/18/18 06:00 05/18/18 23:59 Ethan Piña MD May 18, 2018 19:28
--- NOTE | 2018-05-18 20:24 | General Progress Note ---
Assessment/Plan Problem List: (1) encephslopathy acute due to toxinc Assessment/Plan seroquel 50mg po qhs haldol 5mg Im q6hr the pt lacks capacity to make decisions Subjective Neurologic/Psychiatric: Reports: anxiety, depressed, emotional problems Allergies: Coded Allergies: No Known Allergies (Unverified , 05/07/18) Subjective not agitated disoriented Objective Last 24 Hour Vital Signs Date Time Temp Pulse Resp B/P (MAP) Pulse Ox O2 Delivery O2 Flow Rate FiO2 05/18/18 16:00 98.8 81 19 139/67 (91) 97 05/18/18 13:00 83 148/73 (98) 05/18/18 12:00 97.9 72 18 166/84 (111) 98 05/18/18 09:00 Room Air 05/18/18 08:47 80 127/78 05/18/18 08:46 80 127/78 05/18/18 08:00 97.7 80 17 127/78 (94) 97 05/18/18 04:00 98.1 76 18 136/71 (92) 100 05/18/18 00:00 97.9 77 18 158/76 (103) 100 05/17/18 21:33 81 157/79 05/17/18 21:00 Room Air Intake and Output 05/17/18 05/18/18 19:00 07:00 Intake Total 640 ml 410 ml Balance 640 ml 410 ml Intake Oral 640 ml 250 ml IV Total 160 ml # Voids 4 1 # Bowel Movements 3 Laboratory Tests 05/18/18 06:18: White Blood Count 6.2, Red Blood Count 3.61L, Hemoglobin 10.0L, Hematocrit 31.8L , Mean Corpuscular Volume 88, Mean Corpuscular Hemoglobin 27.8, Mean Corpuscular Hemoglobin Concent 31.5L, Red Cell Distribution Width 15.5H, Platelet Count 266, Mean Platelet Volume 6.8, Neutrophils (%) (Auto) 75.2H, Lymphocytes (%) (Auto) 12.4L, Monocytes (%) (Auto) 8.5, Eosinophils (%) (Auto) 3.3H, Basophils (%) (Auto) 0.6, Sodium Level 133L, Potassium Level 4.8, Chloride Level 97L, Carbon Dioxide Level 24, Anion Gap 12, Blood Urea Nitrogen 36H, Creatinine 9.3H, Estimat Glomerular Filtration Rate 5.8, Glucose Level 73L , Calcium Level 9.3, Phosphorus Level 3.7, Random Vancomycin Level 28.4 Height (Feet): 5 Height (Inches): 7.00 Weight (Pounds): 122 General Appearance: no apparent distress, alert, confused, agitated Viktoria Evans MD May 18, 2018 20:24
[2018-05-18] MEDS: ceFAZolin 2gm/50ml Premix 50 ML IV SCH (21:08)
--- NOTE | 2018-05-18 22:21 | Cardiology Progress Note ---
Assessment/Plan Assessment/Plan bacteremia, rule out endocarditis proceed with CONY Subjective Subjective The patient is resting in bed, denies any dyspnea or chest pain Objective Last 24 Hour Vital Signs Date Time Temp Pulse Resp B/P (MAP) Pulse Ox O2 Delivery O2 Flow Rate FiO2 05/18/18 21:08 84 150/75 05/18/18 20:00 97.2 84 18 150/75 (100) 98 05/18/18 16:00 98.8 81 19 139/67 (91) 97 05/18/18 13:00 83 148/73 (98) 05/18/18 12:00 97.9 72 18 166/84 (111) 98 05/18/18 09:00 Room Air 05/18/18 08:47 80 127/78 05/18/18 08:46 80 127/78 05/18/18 08:00 97.7 80 17 127/78 (94) 97 05/18/18 04:00 98.1 76 18 136/71 (92) 100 05/18/18 00:00 97.9 77 18 158/76 (103) 100 General Appearance: alert EENT: PERRL/EOMI Neck: JVD - high Rhythm: NSR Cardiovascular: systolic murmur Respiratory/Chest: crackles/rales Abdomen: distended Extremities: no swelling Intake and Output 05/17/18 05/18/18 19:00 07:00 Intake Total 640 ml 410 ml Balance 640 ml 410 ml Intake Oral 640 ml 250 ml IV Total 160 ml # Voids 4 1 # Bowel Movements 3 Laboratory Tests Test 05/18/18 06:18 White Blood Count 6.2 K/UL (4.8-10.8) Red Blood Count 3.61 M/UL (4.70-6.10) L Hemoglobin 10.0 G/DL (14.2-18.0) L Hematocrit 31.8 % (42.0-52.0) L Mean Corpuscular Volume 88 FL (80-99) Mean Corpuscular Hemoglobin 27.8 PG (27.0-31.0) Mean Corpuscular Hemoglobin Concent 31.5 G/DL (32.0-36.0) L Red Cell Distribution Width 15.5 % (11.6-14.8) H Platelet Count 266 K/UL (150-450) Mean Platelet Volume 6.8 FL (6.5-10.1) Neutrophils (%) (Auto) 75.2 % (45.0-75.0) H Lymphocytes (%) (Auto) 12.4 % (20.0-45.0) L Monocytes (%) (Auto) 8.5 % (1.0-10.0) Eosinophils (%) (Auto) 3.3 % (0.0-3.0) H Basophils (%) (Auto) 0.6 % (0.0-2.0) Sodium Level 133 MMOL/L (136-145) L Potassium Level 4.8 MMOL/L (3.5-5.1) Chloride Level 97 MMOL/L (98-107) L Carbon Dioxide Level 24 MMOL/L (21-32) Anion Gap 12 mmol/L (5-15) Blood Urea Nitrogen 36 mg/dL (7-18) H Creatinine 9.3 MG/DL (0.55-1.30) H Estimat Glomerular Filtration Rate 5.8 mL/min (>60) Glucose Level 73 MG/DL (74-106) L Calcium Level 9.3 MG/DL (8.5-10.1) Phosphorus Level 3.7 MG/DL (2.5-4.9) Random Vancomycin Level 28.4 ug/mL Ansatasia Barboza MD May 18, 2018 22:21
[2018-05-19] VITALS: BP 146/73
[2018-05-19 04:00] VITALS: BP 131/75
[2018-05-19] MEDS: Calcium Acetate 667mg Tab ORAL SCH ×3 (06:09→17:29)
[2018-05-19] MEDS: NovoLOG Insulin Flexpen SUBQ SCH ×4 (06:30→21:22)
[2018-05-19 08:00] VITALS: BP 141/72
[2018-05-19] MEDS: Docusate 100mg cap ORAL SCH ×2 (08:37→21:00)
[2018-05-19] MEDS: Heparin 5000 units/ml inj SUBQ SCH ×2 (08:42→21:21)
[2018-05-19 12:00] VITALS: BP 130/70
--- NOTE | 2018-05-19 12:01 | Nephrology Progress Note ---
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 Poor Prognosis. Functional Decline. Needs SNF. Staph Aureus Sepsis! Serious and life-threatening condition. CONY Monday still + Staph Aureus Suspicious for Endocarditis Subjective Subjective Much more alert! No new c/o Objective Objective Last 24 Hour Vital Signs Date Time Temp Pulse Resp B/P (MAP) Pulse Ox O2 Delivery O2 Flow Rate FiO2 05/19/18 09:00 Room Air 05/19/18 08:38 83 141/72 05/19/18 08:37 83 141/72 05/19/18 08:00 97.4 83 20 141/72 (95) 100 05/19/18 04:00 97.8 80 18 131/75 (93) 100 05/19/18 00:00 97.6 80 18 146/73 (97) 99 05/18/18 21:08 84 150/75 05/18/18 21:00 Room Air 05/18/18 20:00 97.2 84 18 150/75 (100) 98 05/18/18 16:00 98.8 81 19 139/67 (91) 97 05/18/18 13:00 83 148/73 (98) Intake and Output 05/18/18 05/19/18 18:59 06:59 Intake Total 1900 ml Balance 1900 ml Intake Oral 1000 ml Other 900 ml # Voids 3 Height (Feet): 5 Height (Inches): 7.00 Weight (Pounds): 120 Objective Cachectic Cv RR Lungs B ronchi Abd SNT. BS + E No CCE. ROSALEE Extremely aneurysmatic AVF Sergio Ellis MD May 19, 2018 12:01
--- NOTE | 2018-05-19 13:45 | Neurology Progress Note ---
Interim History Interim History Interim History Mr. Tong Henderson feels well. He says he slept well last night. He says he is eating well. He feels that his memory is better. He is still cognitively impoverished. He feels steadier on his feet when he walks. He denies any new neurologic symptoms. Review of Systems Neuro Review of Systems Benign. Objective Physical Exam Last Vital Signs Date Time Temp Pulse Resp B/P (MAP) Pulse Ox O2 Delivery O2 Flow Rate FiO2 05/19/18 12:00 97.4 73 16 130/70 (90) 97 05/19/18 09:00 Room Air 05/14/18 01:39 21 Neurologic Exam Objective PHYSICAL EXAMINATION: GENERAL: He is a well-developed relatively well-nourished, gentleman, lying in bed, in no acute distress. HEAD: Normocephalic and atraumatic. EENT: Examination benign. NECK: No neck rigidity was observed. NEUROLOGIC EXAMINATION: MENTAL STATUS EXAMINATION: He was awake and alert. He was oriented to self, [place] and May 2018. He did not know the date. He was able to recall 3/3 words immediately, but only remember 1/3 in 1 and 3 minutes. He was able to remember Presidents Trump and Obama only. His mathematical skills were impaired. His visuospatial function was also impaired. SPEECH: He had no dysarthria. LANGUAGE: He was able to comprehend and express himself relatively well. CRANIAL NERVE EXAMINATION: II: The visual bond were intact on confrontation testing. III, IV & : The external ocular movements were full and the pupils 3 mm in diameter, equal, round, regular, and reactive to light. V: He had normal facial sensations and the temporales, masseters, and pterygoids functioned normally. VII: He had normal facial expressions and no facial asymmetry. VIII: He was able to hear well bilaterally and had no nystagmus. IX: The palate moved symmetrically on phonation. X: He had no hoarseness of voice. XI: The sternocleidomastoids and trapezii functioned normally. XII: The tongue was in the midline without any fasciculations or atrophy. MOTOR SYSTEM: The tone was normal in all four extremities. Examination of muscle mass revealed no focal wasting. Examination of power revealed G 5/5 power in all muscle groups tested. SENSORY EXAMINATION: He had intact sensations to pinprick and light touch, but complained of subjective alteration in the distal lower extremities. Position sense was normal in the fingers bilaterally, but was diminished in the toes bilaterally. REFLEXES: Trace+ and bilaterally symmetrical at the biceps, triceps, brachioradialis, and knees, 0 at both ankles. The plantar responses were flexor bilaterally. STANCE: He stood up with a wide base with contact guard. GAIT: He walked with a wide-based but steadier gait with contact guard. Impression/Recommendations Diagnostic Impression 1. Mr. Aleksandra Henderson is a 62-year-old, right-handed, gentleman , who has a long history of hypertension, diabetes mellitus, gastroesophageal reflux disease, alcoholism, and end-stage renal disease, who was hospitalized for an alteration in his mental state on 05/07/2018. Prior to that, he had been imbibing large quantities of alcohol and not eating well. When he was evaluated in the emergency room, his blood sugars were in the 30s and he had alcohol in his system more than 24 hours after he had stopped drinking. 2. Since he has been hospitalized, he has improved, but continues to have significant problems with cognition. 3. He feels well. He says he slept well last night. He says he is eating well. He feels that his memory is better. He is still cognitively impoverished. He feels steadier on his feet when he walks. He denies any new neurologic symptoms. 4. At this point in time, he is disoriented to date. His recent and remote memory is impaired. He also has problems with mathematical skills and visuospatial function. He, however, does not demonstrate any focal or lateralizing neurological findings. Altered sensations are present in both his lower extremities and his position sense is decreased in the toes, but normal in the fingers. His deep tendon reflexes are globally diminished with absent ankle jerks. He stands with a wide base and walks with a wide-based but steadier gait. 5. His laboratory data on my initial evaluation revealed that he is mildly anemic with a hemoglobin of 11.7 G. His latest chemistry panel revealed a sodium low at 127, chloride low at 90, potassium elevated at 5.2, BUN elevated at 54 with a creatinine of 9.3, low calcium at 8.0, an alkaline phosphatase elevated at 125, and a low albumin of 3.1. When the patient came in, his blood glucose was measured at 38. His toxicology screen on his admission revealed a serum alcohol of 32. 6. Further laboratory test have revealed a low Folic acid level. 7. His EEG was normal. [address] revealed atrophy and deep white matter changes, but no acute pathology. 9. The patient's history, neurological examination, and laboratory data are most compatible with severe amnesia with other global cognitive impairment most probably related to an encephalopathy due to alcohol use and possibly hypoglycemia. 10. The patient also has a neuropathic process with significant posterior column dysfunction causing the unsteady gait. 11. He was given IV Thiamine and SC Vitamin B 12 and his cognitive function has improved but is still abnormal. Recommendations 1. Continue present management. 2. Folic acid 1 mg PO q day for deficiency. 3. Attempts should be made to prevent hypoglycemia in the future. 4. The patient was again made aware of the ills of alcohol and advised to stop drinking alcohol immediately. 5. Increase activity. 6. Multiple daily walks. 7. Observe closely. Jurgen Jurado M.D., M.S.P.H. Jurgen Jurado MD May 19, 2018 13:45
--- NOTE | 2018-05-19 14:51 | Cardiology Progress Note ---
Assessment/Plan Assessment/Plan bacteremia dm htn esrd left wrist pain (chronicity?) jonathan planned for monday byt dr muniz iv abx Subjective Cardiovascular: Reports: lightheadedness; Denies: chest pain, palpitations Respiratory: Denies: shortness of breath Gastrointestinal/Abdominal: Denies: abdominal pain Genitourinary: Denies: burning Objective Last 24 Hour Vital Signs Date Time Temp Pulse Resp B/P (MAP) Pulse Ox O2 Delivery O2 Flow Rate FiO2 05/19/18 12:00 97.4 73 16 130/70 (90) 97 05/19/18 09:00 Room Air 05/19/18 08:38 83 141/72 05/19/18 08:37 83 141/72 05/19/18 08:00 97.4 83 20 141/72 (95) 100 05/19/18 04:00 97.8 80 18 131/75 (93) 100 05/19/18 00:00 97.6 80 18 146/73 (97) 99 05/18/18 21:08 84 150/75 05/18/18 21:00 Room Air 05/18/18 20:00 97.2 84 18 150/75 (100) 98 05/18/18 16:00 98.8 81 19 139/67 (91) 97 General Appearance: no apparent distress, alert Neck: supple Cardiovascular: normal rate, regular rhythm Respiratory/Chest: lungs clear, normal breath sounds Abdomen: normal bowel sounds, non tender, soft Extremities: other - left wrist edema Intake and Output 05/18/18 05/19/18 18:59 06:59 Intake Total 1900 ml Balance 1900 ml Intake Oral 1000 ml Other 900 ml # Voids 3 Microbiology Date/Time Source Procedure Growth Status 05/17/18 05:10 Blood Blood Culture - Preliminary NO GROWTH AFTER 24 HOURS Resulted Ayaz Peterson MD May 19, 2018 14:51
[2018-05-19 16:00] VITALS: BP 126/70
[2018-05-19] MEDS: D5NS 1,000 ML IV SCH (17:15)
[2018-05-19 20:00] VITALS: BP 132/74
[2018-05-19] MEDS: ceFAZolin 2gm/50ml Premix 50 ML IV SCH (21:20)
--- NOTE | 2018-05-19 22:19 | General Progress Note ---
Assessment/Plan Problem List: (1) encephslopathy acute due to toxinc Assessment/Plan seroquel 50mg po qhs haldol 5mg Im q6hr the pt lacks capacity to make decisions Subjective Neurologic/Psychiatric: Reports: anxiety, depressed, emotional problems Allergies: Coded Allergies: No Known Allergies (Unverified , 05/07/18) Subjective not agitated disoriented Objective Last 24 Hour Vital Signs Date Time Temp Pulse Resp B/P (MAP) Pulse Ox O2 Delivery O2 Flow Rate FiO2 05/19/18 21:20 80 132/74 05/19/18 21:00 Room Air 05/19/18 20:00 97.4 80 16 132/74 (93) 97 05/19/18 16:00 98.2 75 20 126/70 (88) 99 05/19/18 12:00 97.4 73 16 130/70 (90) 97 05/19/18 09:00 Room Air 05/19/18 08:38 83 141/72 05/19/18 08:37 83 141/72 05/19/18 08:00 97.4 83 20 141/72 (95) 100 05/19/18 04:00 97.8 80 18 131/75 (93) 100 05/19/18 00:00 97.6 80 18 146/73 (97) 99 Intake and Output 05/18/18 05/19/18 19:00 07:00 Intake Total 1900 ml Balance 1900 ml Intake Oral 1000 ml Other 900 ml # Voids 3 Height (Feet): 5 Height (Inches): 7.00 Weight (Pounds): 120 Viktoria Evans MD May 19, 2018 22:19
[2018-05-20] VITALS: BP 146/75
[2018-05-20 04:00] VITALS: BP 153/81
[2018-05-20] MEDS: NovoLOG Insulin Flexpen SUBQ SCH ×4 (05:57→20:53)
[2018-05-20] MEDS: Calcium Acetate 667mg Tab ORAL SCH ×4 (05:58→16:45)
[2018-05-20 08:00] VITALS: BP 155/75
[2018-05-20] MEDS: Docusate 100mg cap ORAL SCH ×2 (08:26→20:41)
[2018-05-20] MEDS: Heparin 5000 units/ml inj SUBQ SCH ×2 (08:29→21:00)
[2018-05-20 08:48] LABS: BASOPHILS % (AUTO) 1.2 % (0.0-2.0); EOSINOPHILS % (AUTO) 4.7 % (0.0-3.0); HEMATOCRIT 33.3 % (42.0-52.0); HEMOGLOBIN 10.5 G/DL (14.2-18.0); LYMPHOCYTES % (AUTO) 14.6 % (20.0-45.0); MEAN CORPUSCULAR VOLUME 88 FL (80-99); MONOCYTES % (AUTO) 7.7 % (1.0-10.0); NEUTROPHILS % (AUTO) 71.8 % (45.0-75.0); PLATELET COUNT 320 K/UL (150-450); RED CELL DISTRIBUTION WIDTH 15.4 % (11.6-14.8); WHITE BLOOD COUNT 6.1 K/UL (4.8-10.8)
[2018-05-20 09:01] LABS: ALANINE AMINOTRANSFERASE 9 U/L (12-78); ALBUMIN 2.8 G/DL (3.4-5.0); ALBUMIN/GLOBULIN RATIO 0.5 (1.0-2.7); ALKALINE PHOSPHATASE 149 U/L (46-116); ANION GAP 14 mmol/L (5-15); ASPARTATE AMINO TRANSFERASE 24 U/L (15-37); BILIRUBIN,TOTAL 0.7 MG/DL (0.2-1.0); BLOOD UREA NITROGEN 42 mg/dL (7-18); CALCIUM 9.3 MG/DL (8.5-10.1); CARBON DIOXIDE 24 MMOL/L (21-32); CHLORIDE 100 MMOL/L (98-107); CREATININE 10.2 MG/DL (0.55-1.30); POTASSIUM 4.8 MMOL/L (3.5-5.1); SODIUM 138 MMOL/L (136-145)
[2018-05-20 12:00] VITALS: BP 140/69
--- NOTE | 2018-05-20 13:22 | Nephrology Progress Note ---
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 Poor Prognosis. Functional Decline. Needs SNF. Staph Aureus Sepsis! Serious and life-threatening condition. [place] Monday still + Staph Aureus Suspicious for Endocarditis Subjective Subjective Much more alert! No new c/o Objective Objective Last 24 Hour Vital Signs Date Time Temp Pulse Resp B/P (MAP) Pulse Ox O2 Delivery O2 Flow Rate FiO2 05/20/18 08:27 87 153/81 05/20/18 08:26 87 153/81 05/20/18 08:25 Room Air 05/20/18 08:00 97.6 84 19 155/75 (101) 95 05/20/18 04:00 98.2 87 18 153/81 (105) 95 05/20/18 00:00 98.3 89 17 146/75 (98) 94 05/19/18 21:20 80 132/74 05/19/18 21:00 Room Air 05/19/18 20:00 97.4 80 16 132/74 (93) 97 05/19/18 16:00 98.2 75 20 126/70 (88) 99 Intake and Output 05/19/18 05/20/18 18:59 06:59 Intake Total 720 ml 280 ml Balance 720 ml 280 ml Intake Oral 720 ml IV Total 280 ml # Voids 2 Laboratory Tests 05/20/18 08:05: White Blood Count 6.1, Red Blood Count 3.80L, Hemoglobin 10.5L, Hematocrit 33.3L , Mean Corpuscular Volume 88, Mean Corpuscular Hemoglobin 27.7, Mean Corpuscular Hemoglobin Concent 31.7L, Red Cell Distribution Width 15.4H, Platelet Count 320, Mean Platelet Volume 6.6, Neutrophils (%) (Auto) 71.8, Lymphocytes (%) (Auto) 14.6L, Monocytes (%) (Auto) 7.7, Eosinophils (%) (Auto) 4.7H, Basophils (%) (Auto) 1.2, Sodium Level 138, Potassium Level 4.8, Chloride Level 100, Carbon Dioxide Level 24, Anion Gap 14, Blood Urea Nitrogen 42H, Creatinine 10.2H, Estimat Glomerular Filtration Rate 5.2, Glucose Level 92, Calcium Level 9.3, Total Bilirubin 0.7, Aspartate Amino Transf (AST/SGOT) 24, Alanine Aminotransferase (ALT/SGPT) 9L, Alkaline Phosphatase 149H, Total Protein 8.1, Albumin 2.8L, Globulin 5.3, Albumin/Globulin Ratio 0.5L Height (Feet): 5 Height (Inches): 7.00 Weight (Pounds): 127 Objective Cachectic Cv RR Lungs B abiel Glaser SNT. BS + E No CCE. ROSALEE Extremely aneurysmatic AVF Sergio Ellis MD May 20, 2018 13:22
--- NOTE | 2018-05-20 13:58 | Neurology Progress Note ---
Interim History Interim History Interim History Mr. Tong Henderson feels well. He slept well last night. His appetite has improved and he is eating well. He feels that his memory is better. He is still cognitively impoverished. He feels steadier on his feet when he walks. He denies any new neurologic symptoms. Review of Systems Neuro Review of Systems Benign. Objective Physical Exam Last Vital Signs Date Time Temp Pulse Resp B/P (MAP) Pulse Ox O2 Delivery O2 Flow Rate FiO2 05/20/18 12:00 97.3 77 16 140/69 (92) 98 05/20/18 08:25 Room Air 05/14/18 01:39 21 Laboratory Tests Test 05/20/18 08:05 White Blood Count 6.1 K/UL (4.8-10.8) Red Blood Count 3.80 M/UL (4.70-6.10) L Hemoglobin 10.5 G/DL (14.2-18.0) L Hematocrit 33.3 % (42.0-52.0) L Mean Corpuscular Volume 88 FL (80-99) Mean Corpuscular Hemoglobin 27.7 PG (27.0-31.0) Mean Corpuscular Hemoglobin Concent 31.7 G/DL (32.0-36.0) L Red Cell Distribution Width 15.4 % (11.6-14.8) H Platelet Count 320 K/UL (150-450) Mean Platelet Volume 6.6 FL (6.5-10.1) Neutrophils (%) (Auto) 71.8 % (45.0-75.0) Lymphocytes (%) (Auto) 14.6 % (20.0-45.0) L Monocytes (%) (Auto) 7.7 % (1.0-10.0) Eosinophils (%) (Auto) 4.7 % (0.0-3.0) H Basophils (%) (Auto) 1.2 % (0.0-2.0) Sodium Level 138 MMOL/L (136-145) Potassium Level 4.8 MMOL/L (3.5-5.1) Chloride Level 100 MMOL/L (98-107) Carbon Dioxide Level 24 MMOL/L (21-32) Anion Gap 14 mmol/L (5-15) Blood Urea Nitrogen 42 mg/dL (7-18) H Creatinine 10.2 MG/DL (0.55-1.30) H Estimat Glomerular Filtration Rate 5.2 mL/min (>60) Glucose Level 92 MG/DL (74-106) Calcium Level 9.3 MG/DL (8.5-10.1) Total Bilirubin 0.7 MG/DL (0.2-1.0) Aspartate Amino Transf (AST/SGOT) 24 U/L (15-37) Alanine Aminotransferase (ALT/SGPT) 9 U/L (12-78) L Alkaline Phosphatase 149 U/L (46-116) H Total Protein 8.1 G/DL (6.4-8.2) Albumin 2.8 G/DL (3.4-5.0) L Globulin 5.3 g/dL Albumin/Globulin Ratio 0.5 (1.0-2.7) L Neurologic Exam Objective PHYSICAL EXAMINATION: GENERAL: He is a well-developed relatively well-nourished, gentleman, lying in bed, in no acute distress. HEAD: Normocephalic and atraumatic. EENT: Examination benign. NECK: No neck rigidity was observed. NEUROLOGIC EXAMINATION: MENTAL STATUS EXAMINATION: He was awake and alert. He was oriented to self, [place] and May 20, 2018. He was able to recall 3/3 words immediately, but only remember 2/3 in 1 and 3 minutes. He was able to remember Presidents Trump through [place]. His mathematical skills were impaired. His visuospatial function was also impaired. SPEECH: He had no dysarthria. LANGUAGE: He was able to comprehend and express himself relatively well. CRANIAL NERVE EXAMINATION: II: The visual bond were intact on confrontation testing. III, IV & : The external ocular movements were full and the pupils 3 mm in diameter, equal, round, regular, and reactive to light. V: He had normal facial sensations and the temporales, masseters, and pterygoids functioned normally. VII: He had normal facial expressions and no facial asymmetry. VIII: He was able to hear well bilaterally and had no nystagmus. IX: The palate moved symmetrically on phonation. X: He had no hoarseness of voice. XI: The sternocleidomastoids and trapezii functioned normally. XII: The tongue was in the midline without any fasciculations or atrophy. MOTOR SYSTEM: The tone was normal in all four extremities. Examination of muscle mass revealed no focal wasting. Examination of power revealed G 5/5 power in all muscle groups tested. SENSORY EXAMINATION: He had intact sensations to pinprick and light touch, but complained of subjective alteration in the distal lower extremities. Position sense was normal in the fingers bilaterally, but was diminished in the toes bilaterally. REFLEXES: Trace+ and bilaterally symmetrical at the biceps, triceps, brachioradialis, and knees, 0 at both ankles. The plantar responses were flexor bilaterally. STANCE: He stood up with a wide base with contact guard. GAIT: He walked with a wide-based but steadier gait with contact guard. Impression/Recommendations Diagnostic Impression 1. Mr. Aleksandra Henderson is a 62-year-old, right-handed, gentleman , who has a long history of hypertension, diabetes mellitus, gastroesophageal reflux disease, alcoholism, and end-stage renal disease, who was hospitalized for an alteration in his mental state on 05/07/2018. Prior to that, he had been imbibing large quantities of alcohol and not eating well. When he was evaluated in the emergency room, his blood sugars were in the 30s and he had alcohol in his system more than 24 hours after he had stopped drinking. 2. Since he has been hospitalized, he has improved, but continues to have significant problems with cognition. 3. He feels well. He slept well last night. His appetite has improved and he is eating well. He feels that his memory is better. He is still cognitively impoverished. He feels steadier on his feet when he walks. He denies any new neurologic symptoms. 4. At this point in time, he is fully oriented. His recent and remote memory is impaired. He also has problems with mathematical skills and visuospatial function. He, however, does not demonstrate any focal or lateralizing neurological findings. Altered sensations are present in both his lower extremities and his position sense is decreased in the toes, but normal in the fingers. His deep tendon reflexes are globally diminished with absent ankle jerks. He stands with a wide base and walks with a wide-based but steadier gait. 5. His laboratory data on my initial evaluation revealed that he is mildly anemic with a hemoglobin of 11.7 G. His latest chemistry panel revealed a sodium low at 127, chloride low at 90, potassium elevated at 5.2, BUN elevated at 54 with a creatinine of 9.3, low calcium at 8.0, an alkaline phosphatase elevated at 125, and a low albumin of 3.1. When the patient came in, his blood glucose was measured at 38. His toxicology screen on his admission revealed a serum alcohol of 32. 6. Further laboratory test have revealed a low Folic acid level. 7. His EEG was normal. [address] revealed atrophy and deep white matter changes, but no acute pathology. 9. The patient's history, neurological examination, and laboratory data are most compatible with severe amnesia with other global cognitive impairment most probably related to an encephalopathy due to alcohol use and possibly hypoglycemia. 10. The patient also has a neuropathic process with significant posterior column dysfunction causing the unsteady gait. 11. He was given IV Thiamine and SC Vitamin B 12 and his cognitive function has improved but is still abnormal. Recommendations 1. Continue present management. 2. Folic acid 1 mg PO q day for deficiency. 3. Attempts should be made to prevent hypoglycemia in the future. 4. The patient was again made aware of the ills of alcohol and advised to stop drinking alcohol. 5. Increase activity. 6. Multiple daily walks. 7. Observe closely. Jurgen Jurado M.D., M.S.P.H. Jurgen Jurado MD May 20, 2018 13:58
--- NOTE | 2018-05-20 14:33 | Cardiology Progress Note ---
Assessment/Plan Assessment/Plan bacteremia dm htn esrd jonathan planned for monday by dr muniz iv abx Subjective Cardiovascular: Denies: chest pain Respiratory: Denies: shortness of breath Gastrointestinal/Abdominal: Denies: abdominal pain Genitourinary: Denies: burning Objective Last 24 Hour Vital Signs Date Time Temp Pulse Resp B/P (MAP) Pulse Ox O2 Delivery O2 Flow Rate FiO2 05/20/18 12:00 97.3 77 16 140/69 (92) 98 05/20/18 08:27 87 153/81 05/20/18 08:26 87 153/81 05/20/18 08:25 Room Air 05/20/18 08:00 97.6 84 19 155/75 (101) 95 05/20/18 04:00 98.2 87 18 153/81 (105) 95 05/20/18 00:00 98.3 89 17 146/75 (98) 94 05/19/18 21:20 80 132/74 05/19/18 21:00 Room Air 05/19/18 20:00 97.4 80 16 132/74 (93) 97 05/19/18 16:00 98.2 75 20 126/70 (88) 99 General Appearance: no apparent distress, alert Neck: no JVD Cardiovascular: normal rate Respiratory/Chest: lungs clear Abdomen: non tender, soft Extremities: no swelling Intake and Output 05/19/18 05/20/18 19:00 07:00 Intake Total 740 ml 280 ml Balance 740 ml 280 ml Intake Oral 720 ml IV Total 20 ml 280 ml # Voids 2 Laboratory Tests Test 05/20/18 08:05 White Blood Count 6.1 K/UL (4.8-10.8) Red Blood Count 3.80 M/UL (4.70-6.10) L Hemoglobin 10.5 G/DL (14.2-18.0) L Hematocrit 33.3 % (42.0-52.0) L Mean Corpuscular Volume 88 FL (80-99) Mean Corpuscular Hemoglobin 27.7 PG (27.0-31.0) Mean Corpuscular Hemoglobin Concent 31.7 G/DL (32.0-36.0) L Red Cell Distribution Width 15.4 % (11.6-14.8) H Platelet Count 320 K/UL (150-450) Mean Platelet Volume 6.6 FL (6.5-10.1) Neutrophils (%) (Auto) 71.8 % (45.0-75.0) Lymphocytes (%) (Auto) 14.6 % (20.0-45.0) L Monocytes (%) (Auto) 7.7 % (1.0-10.0) Eosinophils (%) (Auto) 4.7 % (0.0-3.0) H Basophils (%) (Auto) 1.2 % (0.0-2.0) Sodium Level 138 MMOL/L (136-145) Potassium Level 4.8 MMOL/L (3.5-5.1) Chloride Level 100 MMOL/L (98-107) Carbon Dioxide Level 24 MMOL/L (21-32) Anion Gap 14 mmol/L (5-15) Blood Urea Nitrogen 42 mg/dL (7-18) H Creatinine 10.2 MG/DL (0.55-1.30) H Estimat Glomerular Filtration Rate 5.2 mL/min (>60) Glucose Level 92 MG/DL (74-106) Calcium Level 9.3 MG/DL (8.5-10.1) Total Bilirubin 0.7 MG/DL (0.2-1.0) Aspartate Amino Transf (AST/SGOT) 24 U/L (15-37) Alanine Aminotransferase (ALT/SGPT) 9 U/L (12-78) L Alkaline Phosphatase 149 U/L (46-116) H Total Protein 8.1 G/DL (6.4-8.2) Albumin 2.8 G/DL (3.4-5.0) L Globulin 5.3 g/dL Albumin/Globulin Ratio 0.5 (1.0-2.7) L Ayaz Peterson MD May 20, 2018 14:33
[2018-05-20 16:02] VITALS: BP 139/72
--- NOTE | 2018-05-20 16:32 | Infectious Diseases Prog Note ---
Assessment/Plan Assessment/Plan ASSESSMENT AND PLAN: 1. staph aureus/MSSA bacteremia, sepsis, fevers, ? source staph aureus bacteremia, ? endocarditis - Ancef iv - CONY, wbc scan pending - CT abdomen and pelvis without abscess - surveillance blood cultures negative - monitor labs 2. MRSA colonization and isolation. 3. Anemia. 4. End-stage disease, pulmonary edema -on hemodialysis. 5. AV fistula. 6. Diabetes type 2. Blood sugar treatment per Dr. Ellis. 7. Hypertension. 8. Hypertensive heart disease and cardiovascular disease. 9. Blood pressure treatment per Dr. Ellis. 10. Gastroesophageal reflux disease. 11. Anemia. 12. Elevated creatinine. 13. Possible dyslipidemia. 14. Skin care protocol. 15. Past medical history noted. 16. Case discussed with Dr. Ellis. 17. No known drug allergies. 18. Social history is positive for ETOH abuse. 19. Family history is noncontributory. 20. MAR was noted. 21. Case discussed with RN. 22. Continue treatment per primary consultants. 23. Notes and records were noted . 24. Orders were entered. Subjective Constitutional: Denies: fever HEENT: Denies: congestion Respiratory: Denies: shortness of breath Cardiovascular: Denies: chest pain Gastrointestinal/Abdominal: Denies: nausea, vomiting, diarrhea Genitourinary: Denies: dysuria Neurologic: Denies: headache Psychiatric: Denies: depression Skin: Denies: rash Hematologic: Denies: bleeding Musculoskeletal: Denies: pain Allergies: Coded Allergies: No Known Allergies (Unverified , 05/07/18) Objective Vital Signs Last 24 Hour Vital Signs Date Time Temp Pulse Resp B/P (MAP) Pulse Ox O2 Delivery O2 Flow Rate FiO2 05/20/18 16:02 97.8 80 20 139/72 (94) 98 05/20/18 12:00 97.3 77 16 140/69 (92) 98 05/20/18 08:27 87 153/81 05/20/18 08:26 87 153/81 05/20/18 08:25 Room Air 05/20/18 08:00 97.6 84 19 155/75 (101) 95 05/20/18 04:00 98.2 87 18 153/81 (105) 95 05/20/18 00:00 98.3 89 17 146/75 (98) 94 05/19/18 21:20 80 132/74 05/19/18 21:00 Room Air 05/19/18 20:00 97.4 80 16 132/74 (93) 97 Height (Feet): 5 Height (Inches): 7.00 Weight (Pounds): 127 General Appearance: no acute distress HEENT: normocephalic, atraumatic, anicteric, mucous membranes moist Respiratory/Chest: lungs clear, normal breath sounds, no respiratory distress, no accessory muscle use Cardiovascular: normal rate, regular rhythm, no gallop/murmur, no JVD Abdomen: normal bowel sounds, soft, non tender, no organomegaly, non distended Genitourinary: other - no aguirre Extremities: no cyanosis Skin: no rash Neurologic/Psychiatric: package dyer II-XII grossly normal, alert, responsive Lymphatic: no neck adenopathy Musculoskeletal: no effusion Objective Chest x-ray - 05/16/18 - Technique: One view of the chest Comparison: To 01/20/2019 Findings: Bilateral interstitial edema appears somewhat improved but persists. The heart remains enlarged. The pleural spaces remain clear. Impression: Improved but persistent bilateral interstitial edema, over [address] abdomen and pelvis: Impression: Fluid collection with enhancing rim seen circumferentially surrounding the outer 180 degrees of the left kidney, presumably residual from previously demonstrated large perinephric and retroperitoneal hematoma 2 other perinephric collections as described, in areas corresponding to previously demonstrated large retroperitoneal/perinephric, presumably residual from such. Appearance of these and the above collection are nonspecific as regards whether or not they are infected Atrophic bilateral kidneys, consistent with known history of chronic renal failure Bilateral renal cysts and subcentimeter low-attenuation renal lesions, too small to characterize most likely benign simple cysts. No further follow-up necessary Mild hepatomegaly, also described on recent ultrasound Gallbladder wall edema, without evidence of stones. Nonspecific, possibility of acalculous acute cholecystitis should be considered. Consider hepatobiliary nuclear scan for further evaluation if there is high clinical suspicion for such Interim resolution of previously demonstrated free intraperitoneal fluid Fairly extensive bilateral basilar lower lobe pulmonary parenchymal consolidation and atelectasis. Small amount of pleural fluid on the left Cardiomegaly Incidental findings as noted Microbiology Date/Time Source Procedure Growth Status 05/17/18 05:10 Blood Blood Culture - Preliminary NO GROWTH AFTER 48 HOURS Resulted 05/07/18 11:00 Nasal Nares MRSA Culture - Final Staphylococcus Aureus - Mrsa Complete 05/07/18 11:00 Rectum VRE Culture - Final NO VANCOMYCIN RESISTANT ENTEROCOCCUS ... Complete Microbiology Date/Time Source Procedure Growth Status 05/17/18 05:10 Blood Blood Culture - Preliminary NO GROWTH AFTER 48 HOURS Resulted 05/07/18 11:00 Nasal Nares MRSA Culture - Final Staphylococcus Aureus - Mrsa Complete 05/07/18 11:00 Rectum VRE Culture - Final NO VANCOMYCIN RESISTANT ENTEROCOCCUS ... Complete Laboratory Tests Test 05/20/18 08:05 White Blood Count 6.1 K/UL (4.8-10.8) Red Blood Count 3.80 M/UL (4.70-6.10) L Hemoglobin 10.5 G/DL (14.2-18.0) L Hematocrit 33.3 % (42.0-52.0) L Mean Corpuscular Volume 88 FL (80-99) Mean Corpuscular Hemoglobin 27.7 PG (27.0-31.0) Mean Corpuscular Hemoglobin Concent 31.7 G/DL (32.0-36.0) L Red Cell Distribution Width 15.4 % (11.6-14.8) H Platelet Count 320 K/UL (150-450) Mean Platelet Volume 6.6 FL (6.5-10.1) Neutrophils (%) (Auto) 71.8 % (45.0-75.0) Lymphocytes (%) (Auto) 14.6 % (20.0-45.0) L Monocytes (%) (Auto) 7.7 % (1.0-10.0) Eosinophils (%) (Auto) 4.7 % (0.0-3.0) H Basophils (%) (Auto) 1.2 % (0.0-2.0) Sodium Level 138 MMOL/L (136-145) Potassium Level 4.8 MMOL/L (3.5-5.1) Chloride Level 100 MMOL/L (98-107) Carbon Dioxide Level 24 MMOL/L (21-32) Anion Gap 14 mmol/L (5-15) Blood Urea Nitrogen 42 mg/dL (7-18) H Creatinine 10.2 MG/DL (0.55-1.30) H Estimat Glomerular Filtration Rate 5.2 mL/min (>60) Glucose Level 92 MG/DL (74-106) Calcium Level 9.3 MG/DL (8.5-10.1) Total Bilirubin 0.7 MG/DL (0.2-1.0) Aspartate Amino Transf (AST/SGOT) 24 U/L (15-37) Alanine Aminotransferase (ALT/SGPT) 9 U/L (12-78) L Alkaline Phosphatase 149 U/L (46-116) H Total Protein 8.1 G/DL (6.4-8.2) Albumin 2.8 G/DL (3.4-5.0) L Globulin 5.3 g/dL Albumin/Globulin Ratio 0.5 (1.0-2.7) L Current Medications Medications (Trade) Dose Ordered Sig/Palma Route PRN Reason Start Time Stop Time Status Last Admin Dose Admin Acetaminophen (Tylenol) 650 mg Q4H PRN ORAL Mild Pain (Pain Scale 1-3) 05/09/18 21:00 06/06/18 16:59 05/14/18 08:36 Amlodipine Besylate (Norvasc) 10 mg DAILY ORAL 05/14/18 04:16 06/13/18 04:15 05/20/18 08:26 Calcium Acetate (Phoslo) 1,334 mg TIAC ORAL 05/10/18 06:30 06/07/18 06:29 05/20/18 12:27 Cefazolin Sodium 50 ml @ 100 mls/hr Q24HRS IV 05/18/18 21:00 05/25/18 20:59 05/19/18 21:20 Dextrose (Dextrose 50%) 25 ml Q30M PRN IV Hypoglycemia 05/18/18 16:15 06/17/18 16:14 Dextrose (Dextrose 50%) 50 ml Q30M PRN IV Hypoglycemia 05/18/18 16:15 06/17/18 16:14 Dextrose/Sodium Chloride 1,000 ml @ 20 mls/hr Q24H IV 05/10/18 17:15 06/09/18 17:14 05/17/18 17:24 Docusate Sodium (Colace) 100 mg EVERY 12 HOURS ORAL 05/09/18 21:00 06/06/18 20:59 05/20/18 08:26 Famotidine (Pepcid) 40 mg DAILY ORAL 05/10/18 09:00 06/07/18 08:59 05/20/18 08:27 Folic Acid (Folate) 1 mg DAILY ORAL 05/11/18 11:00 06/10/18 10:59 05/20/18 08:26 Haloperidol Lactate (Haldol) 5 mg Q6H PRN IM Agitation 05/12/18 21:53 06/11/18 21:52 Heparin Sodium (Porcine) (Heparin 5000 units/ml) 5,000 units EVERY 12 HOURS SUBQ 05/09/18 21:00 06/06/18 20:59 05/20/18 08:29 Heparin Sodium (Porcine) (Heparin Sod 1000 units/ml 10ml) 2,000 unit ONCE IV 05/21/18 13:30 05/21/18 23:59 Insulin Aspart (NovoLOG) BEFORE MEALS AND HS SUBQ 05/18/18 16:30 06/17/18 16:29 05/20/18 12:29 Labetalol HCl (Normodyne) 300 mg Q12HR ORAL 05/09/18 21:00 06/06/18 23:14 05/20/18 08:27 Ondansetron HCl (Zofran) 4 mg Q6H PRN IVP Nausea & Vomiting 05/09/18 21:00 06/06/18 20:59 Quetiapine Fumarate (SEROquel) 50 mg BEDTIME ORAL 05/13/18 21:00 06/12/18 20:59 05/19/18 21:20 Sodium Chloride 1,000 ml @ 500 mls/hr Q2H PRN IVLG sbp<90 during hd 05/21/18 13:22 05/21/18 23:59 Ethan Piña MD May 20, 2018 16:32
[2018-05-20] MEDS: D5NS 1,000 ML IV SCH (16:37)
[2018-05-20 20:00] VITALS: BP 139/76
--- NOTE | 2018-05-20 20:08 | General Progress Note ---
Assessment/Plan Problem List: (1) encephslopathy acute due to toxinc Assessment/Plan seroquel 50mg po qhs haldol 5mg Im q6hr the pt lacks capacity to make decisions Subjective Neurologic/Psychiatric: Reports: anxiety, depressed, emotional problems Allergies: Coded Allergies: No Known Allergies (Unverified , 05/07/18) Subjective not agitated disoriented Objective Last 24 Hour Vital Signs Date Time Temp Pulse Resp B/P (MAP) Pulse Ox O2 Delivery O2 Flow Rate FiO2 05/20/18 16:02 97.8 80 20 139/72 (94) 98 05/20/18 12:00 97.3 77 16 140/69 (92) 98 05/20/18 08:27 87 153/81 05/20/18 08:26 87 153/81 05/20/18 08:25 Room Air 05/20/18 08:00 97.6 84 19 155/75 (101) 95 05/20/18 04:00 98.2 87 18 153/81 (105) 95 05/20/18 00:00 98.3 89 17 146/75 (98) 94 05/19/18 21:20 80 132/74 05/19/18 21:00 Room Air Intake and Output 05/19/18 05/20/18 18:59 06:59 Intake Total 720 ml 280 ml Balance 720 ml 280 ml Intake Oral 720 ml IV Total 280 ml # Voids 2 Laboratory Tests 05/20/18 08:05: White Blood Count 6.1, Red Blood Count 3.80L, Hemoglobin 10.5L, Hematocrit 33.3L , Mean Corpuscular Volume 88, Mean Corpuscular Hemoglobin 27.7, Mean Corpuscular Hemoglobin Concent 31.7L, Red Cell Distribution Width 15.4H, Platelet Count 320, Mean Platelet Volume 6.6, Neutrophils (%) (Auto) 71.8, Lymphocytes (%) (Auto) 14.6L, Monocytes (%) (Auto) 7.7, Eosinophils (%) (Auto) 4.7H, Basophils (%) (Auto) 1.2, Sodium Level 138, Potassium Level 4.8, Chloride Level 100, Carbon Dioxide Level 24, Anion Gap 14, Blood Urea Nitrogen 42H, Creatinine 10.2H, Estimat Glomerular Filtration Rate 5.2, Glucose Level 92, Calcium Level 9.3, Total Bilirubin 0.7, Aspartate Amino Transf (AST/SGOT) 24, Alanine Aminotransferase (ALT/SGPT) 9L, Alkaline Phosphatase 149H, Total Protein 8.1, Albumin 2.8L, Globulin 5.3, Albumin/Globulin Ratio 0.5L Height (Feet): 5 Height (Inches): 7.00 Weight (Pounds): 127 General Appearance: no apparent distress, alert, confused Viktoria Evans MD May 20, 2018 20:08
[2018-05-20] MEDS: ceFAZolin 2gm/50ml Premix 50 ML IV SCH (20:41)
[2018-05-21] VITALS (11 sets, daily range): BP systolic 134–159; BP diastolic 47–84
[2018-05-21] MEDS: NovoLOG Insulin Flexpen SUBQ SCH ×3 (06:30→17:23)
[2018-05-21] MEDS ORDERED: Lidocaine 1% Plain 30 ml INJ ONE (07:29)
[2018-05-21] MEDS ORDERED: DiphenhydrAMINE 50mg/ml Inj IVP PRN (08:00)
[2018-05-21] MEDS ORDERED: Propofol 200mg/20ml IV ONE (08:00)
[2018-05-21] MEDS ORDERED: Meperidine 50mg/ml Inj(FOR RIGORS ONLY) IVP PRN (08:00)
[2018-05-21] MEDS ORDERED: Hydromorphone 0.5mg/0.5ml inj IVP PRN (08:00)
[2018-05-21] MEDS ORDERED: Atropine Sulfate 0.4mg/ml inj IVP PRN (08:00)
[2018-05-21] MEDS ORDERED: oxyCODONE HCL/Acetaminophen 5/325mg ORAL PRN (08:00)
[2018-05-21] MEDS ORDERED: LR 1000ml 1,000 ML IVLG SCH (08:00)
[2018-05-21] MEDS ORDERED: LR 1000ml ONE (08:00)
[2018-05-21] MEDS ORDERED: Midazolam 2mg/2ml Inj IVP PRN (08:00)
[2018-05-21] MEDS ORDERED: HYDROcodone/Acetamin 7.5/325 tab ORAL PRN (08:00)
[2018-05-21] MEDS ORDERED: Lidocaine 1% MPF 10mg/ml 5ml ONE (08:00)
[2018-05-21] MEDS ORDERED: Norco 5mg/325mg tab ORAL PRN (08:00)
[2018-05-21] MEDS ORDERED: fentaNYL 100 mcg/2 mL IV PRN (08:00)
[2018-05-21] MEDS ORDERED: LORazepam Inj 2mg/ml 1ml IV PRN (08:00)
[2018-05-21] MEDS ORDERED: NS 500ML IVPB ONE (08:05)
--- NOTE | 2018-05-21 08:23 | Anethesia Preoperative Eval ---
Anesthesia Pre-op PMH/ROS General Date of Evaluation: May 21, 2018 Time of Evaluation: 07:52 Anesthesiologist: Katelyn ASA Score: ASA 3 Mallampati Score Class I : Soft palate, uvula, fauces, pillars visible Class II: Soft palate, uvula, fauces visible Class III: Soft palate, base of uvula visible Class IV: Only hard plate visible Mallampati Classification: Class III Surgeon: Jabari Diagnosis: Endocarditis Surgical Procedure: Transesphagel Echo Anesthesia History: none Family History: no anesthesia problems Allergies: Coded Allergies: No Known Allergies (Unverified , 05/07/18) Medications: see eMAR Patient NPO?: Yes Past Medical History Cardiovascular: Reports: HTN, other - HL, endocarditis Pulmonary: Reports: other - HH Gastrointestinal/Genitourinary: Reports: GERD - GI Ulcer Endocrine: Reports: DM, other - ESRD-Dialysis HEENT: Reports: cataract (L), cataract (R) Hematology/Immune: Reports: anemia PSxH Narrative: Cataract SX, AV Shunt Anesthesia Pre-op Phys. Exam Physician Exam Last Vital Signs Date Time Temp Pulse Resp B/P (MAP) Pulse Ox O2 Delivery O2 Flow Rate FiO2 05/21/18 04:00 97.9 83 20 147/75 (99) 99 05/20/18 21:00 Room Air 05/14/18 01:39 21 Constitutional: NAD Neurologic: CN 2-12 intact Cardiovascular: RRR Respiratory: CTA Gastrointestinal: S/NT/ND Airway Exam Mallampati Score: Class III MO: limited ROM: limited Teeth: missing Anesthesia Pre-op A/P Labs Hematology Test 05/20/18 08:05 White Blood Count 6.1 K/UL (4.8-10.8) Red Blood Count 3.80 M/UL (4.70-6.10) L Hemoglobin 10.5 G/DL (14.2-18.0) L Hematocrit 33.3 % (42.0-52.0) L Mean Corpuscular Volume 88 FL (80-99) Mean Corpuscular Hemoglobin 27.7 PG (27.0-31.0) Mean Corpuscular Hemoglobin Concent 31.7 G/DL (32.0-36.0) L Red Cell Distribution Width 15.4 % (11.6-14.8) H Platelet Count 320 K/UL (150-450) Mean Platelet Volume 6.6 FL (6.5-10.1) Neutrophils (%) (Auto) 71.8 % (45.0-75.0) Lymphocytes (%) (Auto) 14.6 % (20.0-45.0) L Monocytes (%) (Auto) 7.7 % (1.0-10.0) Eosinophils (%) (Auto) 4.7 % (0.0-3.0) H Basophils (%) (Auto) 1.2 % (0.0-2.0) Chemistry Test 05/20/18 08:05 Sodium Level 138 MMOL/L (136-145) Potassium Level 4.8 MMOL/L (3.5-5.1) Chloride Level 100 MMOL/L (98-107) Carbon Dioxide Level 24 MMOL/L (21-32) Anion Gap 14 mmol/L (5-15) Blood Urea Nitrogen 42 mg/dL (7-18) H Creatinine 10.2 MG/DL (0.55-1.30) H Estimat Glomerular Filtration Rate 5.2 mL/min (>60) Glucose Level 92 MG/DL (74-106) Calcium Level 9.3 MG/DL (8.5-10.1) Total Bilirubin 0.7 MG/DL (0.2-1.0) Aspartate Amino Transf (AST/SGOT) 24 U/L (15-37) Alanine Aminotransferase (ALT/SGPT) 9 U/L (12-78) L Alkaline Phosphatase 149 U/L (46-116) H Total Protein 8.1 G/DL (6.4-8.2) Albumin 2.8 G/DL (3.4-5.0) L Globulin 5.3 g/dL Albumin/Globulin Ratio 0.5 (1.0-2.7) L Risk Assessment & Plan Assessment: ASA 3 Plan: GA Status Change Before Surgery: Irving Alfred MD May 21, 2018 08:23
--- NOTE | 2018-05-21 08:24 | Immediate Post-Op Evaluation ---
Immediate Post-Op Evalulation Immediate Post-Op Evalulation Procedure: Transesphagel Echo Date of Evaluation: May 21, 2018 Time of Evaluation: 09:04 Blood Products: 0 Estimated Blood Loss: 1 Urinary Output: 0 Blood Pressure Systolic: 135 Blood Pressure Diastolic: 54 Pulse Rate: 76 Respiratory Rate: 16 O2 Sat by Pulse Oximetry: 100 Temperature (Fahrenheit): 97.4 Pain Score (1-10): 1 Nausea: No Vomiting: No Complications 0 Patient Status: awake, reacts, patent, none Hydration Status: adequate Irving Zepeda MD May 21, 2018 08:24
--- NOTE | 2018-05-21 08:27 | 48 Hour Post Anesthesia Eval ---
Post Anesthesia Evaluation Procedure: Transesphagel Echo Date of Evaluation: May 21, 2018 Time of Evaluation: 11:14 Blood Pressure Systolic: 152 0: 67 Pulse Rate: 78 Respiratory Rate: 18 Temperature (Fahrenheit): 98.1 O2 Sat by Pulse Oximetry: 97 Airway: patent Nausea: No Vomiting: No Pain Intensity: 1 Hydration Status: adequate Cardiopulmonary Status: Stable Mental Status/LOC: patient returned to baseline Follow-up Care/Observations: 0 Post-Anesthesia Complications: 0 Follow-up care needed: N/A Irving Zepeda MD May 21, 2018 08:27
[2018-05-21] MEDS: Docusate 100mg cap ORAL SCH (09:00)
[2018-05-21] MEDS: Heparin 5000 units/ml inj SUBQ SCH (09:00)
--- NOTE | 2018-05-21 10:07 | Nephrology Progress Note ---
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 Poor Prognosis. Functional Decline. Needs SNF. Staph Aureus Sepsis! Serious and life-threatening condition. CONY No vegetations. DC home after HD. Subjective Subjective Much more alert! No new c/o Objective Objective Last 24 Hour Vital Signs Date Time Temp Pulse Resp B/P (MAP) Pulse Ox O2 Delivery O2 Flow Rate FiO2 05/21/18 09:20 73 18 142/50 100 Room Air 05/21/18 09:15 74 18 135/53 100 Simple Mask 8 05/21/18 09:03 75 18 136/54 100 Simple Mask 8 05/21/18 08:58 75 18 134/52 100 Simple Mask 8 05/21/18 08:54 78 18 97 05/21/18 08:53 97.4 76 18 135/54 100 Simple Mask 8 05/21/18 08:53 76 16 100 05/21/18 04:00 97.9 83 20 147/75 (99) 99 05/21/18 00:00 97.1 80 20 140/77 (98) 99 05/20/18 21:00 Room Air 05/20/18 20:41 75 139/76 05/20/18 20:00 97.8 75 18 139/76 (97) 100 05/20/18 16:02 97.8 80 20 139/72 (94) 98 05/20/18 12:00 97.3 77 16 140/69 (92) 98 Intake and Output 05/20/18 05/21/18 19:00 07:00 Intake Total 1390 ml 260 ml Balance 1390 ml 260 ml Intake Oral 1200 ml IV Total 190 ml 260 ml # Voids 6 # Bowel Movements 1 Height (Feet): 5 Height (Inches): 5.00 Weight (Pounds): 127 Objective Cachectic Cv RR Lungs B ronchi Abd SNT. BS + E No CCE. ROSALEE Extremely aneurysmatic AVF Sergio Ellis MD May 21, 2018 10:07
--- NOTE | 2018-05-21 10:22 | Pre-Procedure Note/Attestation ---
Pre-Procedure Note/Attestation Indications for Procedure Pre-Operative Diagnosis: endocarditis Attestation I attest that I discussed the nature of the procedure; its benefits; risks and complications; and alternatives (and the risks and benefits of such alternatives ), prior to the procedure, with the patient (or the patient's legal leather goods sales representative). I attest that, if there was a reasonable possibility of needing a blood transfusion, the patient (or the patient's legal leather goods sales representative) was given the [facility] standardized written summary, pursuant to the [place] Blood Safety Act ([place] Health and Safety Code # 1645, as amended). I attest that I re-evaluated the patient just prior to the surgery and that there has been no change in the patient's H&P, except as documented below: Anastasia Barboza MD May 21, 2018 10:22
--- NOTE | 2018-05-21 10:24 | Operative Note - PDOC ---
Operative Note Operative Note Pre-op Diagnosis: endocarditis Procedure: CONY Post-op Diagnosis: pulmonary hypertension Surgeon: Anastasia Barboza Anesthesia: moderate sedation Specimen: none Complications: none Condition: stable Estimated Blood Loss: none Drains: none Implant(s) used?: No Indications for Procedure endocarditis Description of Procedure will dictate Anastasia Barboza MD May 21, 2018 10:24
[2018-05-21] MEDS ORDERED: Vancomycin 1250mg/D5W 275ml IVPB PRN (10:30)
[2018-05-21 11:23] LABS: BASOPHILS % (AUTO) 1.1 % (0.0-2.0); EOSINOPHILS % (AUTO) 4.9 % (0.0-3.0); HEMOGLOBIN 9.9 G/DL (14.2-18.0); LYMPHOCYTES % (AUTO) 16.9 % (20.0-45.0); MEAN CORPUSCULAR VOLUME 88 FL (80-99); MONOCYTES % (AUTO) 7.1 % (1.0-10.0); NEUTROPHILS % (AUTO) 69.9 % (45.0-75.0); PLATELET COUNT 293 K/UL (150-450); RED BLOOD COUNT 3.63 M/UL (4.70-6.10); RED CELL DISTRIBUTION WIDTH 15.3 % (11.6-14.8); WHITE BLOOD COUNT 4.9 K/UL (4.8-10.8)
[2018-05-21] MEDS: Calcium Acetate 667mg Tab ORAL SCH ×2 (11:30→17:25)
[2018-05-21 11:40] LABS: ALANINE AMINOTRANSFERASE 7 U/L (12-78); ALBUMIN 2.7 G/DL (3.4-5.0); ALBUMIN/GLOBULIN RATIO 0.6 (1.0-2.7); ALKALINE PHOSPHATASE 148 U/L (46-116); ANION GAP 13 mmol/L (5-15); BILIRUBIN,TOTAL 0.6 MG/DL (0.2-1.0); BLOOD UREA NITROGEN 49 mg/dL (7-18); CALCIUM 9.3 MG/DL (8.5-10.1); CARBON DIOXIDE 21 MMOL/L (21-32); CHLORIDE 100 MMOL/L (98-107); CREATININE 11.4 MG/DL (0.55-1.30); SODIUM 134 MMOL/L (136-145)
[2018-05-21 11:50] LABS: ASPARTATE AMINO TRANSFERASE 15 U/L (15-37)
--- NOTE | 2018-05-21 12:55 | Cardiology Report ---
APPROVED REPORT EXAM: Two-dimensional and M-mode echocardiogram with Doppler and color Doppler. INDICATION Endocarditis M-Mode DIMENSIONS IVSd1.0 (0.7-1.1cm)Left Atrium (MM)4.1 (1.6-4.0cm) LVDd4.1 (3.5-5.6cm)Aortic Root2.8 (2.0-3.7cm) PWd1.1 (0.7-1.1cm)Aortic Cusp Exc.1.7 (1.5-2.0cm) IVSs1.1 cm LVDs3.0 (2.5-4.0cm) PWs1.1 cm Normal left ventricular chamber size, systolic function and wall motion . Left ventricular ejection fraction estimated to be 55%. No evidence of left ventricular hypertrophy. No evidence of pericardial fat or effusion. Mild bi-atrial enlargement. Right ventricular chamber sizes is within normal limits. Mild aortic valve sclerosis with normal cusp excursion. Thickened mitral valve leaflets with normal excursion. Mild mitral annulus and aortic root calcification. Pulmonic valve not well visualized. IVC at normal size without physiologic collapse. A color flow and spectral Doppler study was performed and revealed: No aortic regurgitation. Normal left ventricular diastolic function . Mild mitral regurgitation. Mild tricuspid regurgitation. Tricuspid systolic velocities suggests peak right ventricular systolic pressure of 48mmHg, consistent with moderate pulmonary hypertension . Mild pulmonic regurgitation .
[2018-05-21] MEDS ORDERED: Heparin Sod 1000 units/ml 10ml IV SCH (13:30)
[2018-05-21] MEDS: D5NS 1,000 ML IV SCH (17:15)
[2018-05-21] MEDS ORDERED: D5NS 1000ml IV ONE (17:50)
--- NOTE | 2018-05-21 18:22 | Cardiology Progress Note ---
Assessment/Plan Assessment/Plan post CONY negative for endocarditis [id number] Subjective Subjective the patient was seen after CONY was completed he is awake, but slightly confused b Objective Last 24 Hour Vital Signs Date Time Temp Pulse Resp B/P (MAP) Pulse Ox O2 Delivery O2 Flow Rate FiO2 05/21/18 16:00 96.8 83 18 159/84 (109) 99 05/21/18 11:05 Room Air 05/21/18 10:07 97.6 73 18 155/57 95 Nasal Cannula 2 05/21/18 09:45 73 18 137/52 95 Nasal Cannula 2 05/21/18 09:30 73 18 136/47 92 Nasal Cannula 2 05/21/18 09:20 73 18 142/50 100 Room Air 05/21/18 09:15 74 18 135/53 100 Simple Mask 8 05/21/18 09:03 75 18 136/54 100 Simple Mask 8 05/21/18 08:58 75 18 134/52 100 Simple Mask 8 05/21/18 08:54 78 18 97 05/21/18 08:53 97.4 76 18 135/54 100 Simple Mask 8 05/21/18 08:53 76 16 100 05/21/18 04:00 97.9 83 20 147/75 (99) 99 05/21/18 00:00 97.1 80 20 140/77 (98) 99 05/20/18 21:00 Room Air 05/20/18 20:41 75 139/76 05/20/18 20:00 97.8 75 18 139/76 (97) 100 General Appearance: mild distress EENT: PERRL/EOMI Neck: JVD Rhythm: NSR Cardiovascular: regular rhythm, systolic murmur Respiratory/Chest: crackles/rales Abdomen: distended Extremities: other - left arm fistula Intake and Output 05/20/18 05/21/18 18:59 06:59 Intake Total 1390 ml 260 ml Balance 1390 ml 260 ml Intake Oral 1200 ml IV Total 190 ml 260 ml # Voids 6 # Bowel Movements 1 Laboratory Tests Test 05/21/18 11:10 White Blood Count 4.9 K/UL (4.8-10.8) Red Blood Count 3.63 M/UL (4.70-6.10) L Hemoglobin 9.9 G/DL (14.2-18.0) L Hematocrit 32.0 % (42.0-52.0) L Mean Corpuscular Volume 88 FL (80-99) Mean Corpuscular Hemoglobin 27.2 PG (27.0-31.0) Mean Corpuscular Hemoglobin Concent 30.9 G/DL (32.0-36.0) L Red Cell Distribution Width 15.3 % (11.6-14.8) H Platelet Count 293 K/UL (150-450) Mean Platelet Volume 5.5 FL (6.5-10.1) L Neutrophils (%) (Auto) 69.9 % (45.0-75.0) Lymphocytes (%) (Auto) 16.9 % (20.0-45.0) L Monocytes (%) (Auto) 7.1 % (1.0-10.0) Eosinophils (%) (Auto) 4.9 % (0.0-3.0) H Basophils (%) (Auto) 1.1 % (0.0-2.0) Sodium Level 134 MMOL/L (136-145) L Potassium Level 5.0 MMOL/L (3.5-5.1) Chloride Level 100 MMOL/L (98-107) Carbon Dioxide Level 21 MMOL/L (21-32) Anion Gap 13 mmol/L (5-15) Blood Urea Nitrogen 49 mg/dL (7-18) H Creatinine 11.4 MG/DL (0.55-1.30) H Estimat Glomerular Filtration Rate 4.6 mL/min (>60) Glucose Level 108 MG/DL (74-106) H Calcium Level 9.3 MG/DL (8.5-10.1) Total Bilirubin 0.6 MG/DL (0.2-1.0) Aspartate Amino Transf (AST/SGOT) 15 U/L (15-37) Alanine Aminotransferase (ALT/SGPT) 7 U/L (12-78) L Alkaline Phosphatase 148 U/L (46-116) H Total Protein 7.6 G/DL (6.4-8.2) Albumin 2.7 G/DL (3.4-5.0) L Globulin 4.9 g/dL Albumin/Globulin Ratio 0.6 (1.0-2.7) L Microbiology Date/Time Source Procedure Growth Status 05/19/18 08:45 Blood Blood Culture - Preliminary NO GROWTH AFTER 24 HOURS Resulted 05/19/18 08:30 Blood Blood Culture - Preliminary NO GROWTH AFTER 24 HOURS Resulted Anastasia Barboza MD May 21, 2018 18:22
--- NOTE | 2018-05-21 21:46 | General Progress Note ---
Assessment/Plan Problem List: (1) encephslopathy acute due to toxinc Assessment/Plan seroquel 50mg po qhs haldol 5mg Im q6hr the pt lacks capacity to make decisions Subjective Neurologic/Psychiatric: Reports: anxiety, depressed, emotional problems Allergies: Coded Allergies: No Known Allergies (Unverified , 05/07/18) Subjective not agitated disoriented Objective Last 24 Hour Vital Signs Date Time Temp Pulse Resp B/P (MAP) Pulse Ox O2 Delivery O2 Flow Rate FiO2 05/21/18 16:00 96.8 83 18 159/84 (109) 99 05/21/18 11:05 Room Air 05/21/18 10:07 97.6 73 18 155/57 95 Nasal Cannula 2 05/21/18 09:45 73 18 137/52 95 Nasal Cannula 2 05/21/18 09:30 73 18 136/47 92 Nasal Cannula 2 05/21/18 09:20 73 18 142/50 100 Room Air 05/21/18 09:15 74 18 135/53 100 Simple Mask 8 05/21/18 09:03 75 18 136/54 100 Simple Mask 8 05/21/18 08:58 75 18 134/52 100 Simple Mask 8 05/21/18 08:54 78 18 97 05/21/18 08:53 97.4 76 18 135/54 100 Simple Mask 8 05/21/18 08:53 76 16 100 05/21/18 04:00 97.9 83 20 147/75 (99) 99 05/21/18 00:00 97.1 80 20 140/77 (98) 99 Intake and Output 05/20/18 05/21/18 18:59 06:59 Intake Total 1390 ml 260 ml Balance 1390 ml 260 ml Intake Oral 1200 ml IV Total 190 ml 260 ml # Voids 6 # Bowel Movements 1 Laboratory Tests 05/21/18 11:10: White Blood Count 4.9, Red Blood Count 3.63L, Hemoglobin 9.9L, Hematocrit 32.0L , Mean Corpuscular Volume 88, Mean Corpuscular Hemoglobin 27.2, Mean Corpuscular Hemoglobin Concent 30.9L, Red Cell Distribution Width 15.3H, Platelet Count 293, Mean Platelet Volume 5.5L, Neutrophils (%) (Auto) 69.9, Lymphocytes (%) (Auto) 16.9L, Monocytes (%) (Auto) 7.1, Eosinophils (%) (Auto) 4.9H, Basophils (%) (Auto) 1.1, Sodium Level 134L, Potassium Level 5.0, Chloride Level 100, Carbon Dioxide Level 21, Anion Gap 13, Blood Urea Nitrogen 49H, Creatinine 11.4H, Estimat Glomerular Filtration Rate 4.6, Glucose Level 108H, Calcium Level 9.3, Total Bilirubin 0.6, Aspartate Amino Transf (AST/SGOT) 15, Alanine Aminotransferase (ALT/SGPT) 7L, Alkaline Phosphatase 148H, Total Protein 7.6, Albumin 2.7L, Globulin 4.9, Albumin/Globulin Ratio 0.6L Height (Feet): 5 Height (Inches): 5.00 Weight (Pounds): 127 Viktoria Evans MD May 21, 2018 21:46
--- NOTE | 2018-05-22 02:15 | Operative Note - Dictated ---
DATE OF OPERATION: 05/21/2018 SURGEON: Anastasia Barboza M.D. PROCEDURE: Transesophageal echocardiogram with color and Doppler. INDICATION: Rule out endocarditis. PATIENT IDENTIFICATION: This is a 62-year-old male, who is on dialysis and he has bacteremia with Streptococcus, so CONY was requested to rule out endocarditis. PROCEDURE DESCRIPTION: The patient signed the consent. He and his family were advised about the indications for the procedure, alternatives not to do it, and possible complications including , perforation, aspiration, bleeding, and other unforseen. Intravenous sedation was performed. The TEE probe was inserted in the mouth with caution and then multiple views were obtained from esophagus and from the stomach and the color and Doppler was obtained and then the probe was pulled back and aorta was recorded and procedure was completed. DESCRIPTION OF THE FINDINGS: Left ventricle has LVH and preserved left ventricular ejection fraction and right ventricle is slightly dilated and slightly diminished function. There is a biatrial enlargement. There is a moderate tricuspid regurgitation. The peak velocity of tricuspid regurgitation is 3.5 meters/sec and calculated right ventricular pressure accordingly was 51 mmHg. There is mild to moderate mitral regurgitation. There is no aortic regurgitation. The aortic valve is tricuspid with mild thickening, but there is no vegetations. Mitral valve does not have any vegetations and so the tricuspid and pulmonic valves. The left atrial appendage does not have clot. There was some smoke in left atrium determined, but the velocity in the left atrial appendage was not obtained. The aortic valve was interrogated and there is normal velocity of LV outflow without any stenosis. Pulmonic valve also was visualized and appeared to be normal although quality was suboptimal. The patient does not have evidence of endocarditis. He has evidence of severe pulmonary hypertension and [id number] mitral regurgitation. Anastasia Barboza M.D. DR: DEEPAK JOB#: [id number] CC: [facility]
--- NOTE | 2018-05-23 09:55 | Discharge Summary ---
Discharge Summary Discharge Summary _ DATE OF ADMISSION: 05/07/2018 DATE OF DISCHARGE: 05/21/2018 DISCHARGED BY: Dr. Ellis REASON FOR ADMISSION: 62 years old male with past medical history of end-stage renal disease, on hemodialysis, hypertensive cardiovascular disease, type 2 diabetes mellitus, gastroesophageal reflux disease history of EtOH abuse, noncompliance, presented to emergency room complaining of nausea and vomiting. Patient was presented with altered mental status. According to family, the patient was drinking during the weekend excessively. Upon evaluation blood pressure was elevated 195/99. Patient was found to be hypoglycemic with initial blood sugar 38. Patient received high carbohydrate meal, juice and D50 and was monitored in emergency department. Blood sugar initially stayed but then dropped into 70s. Laboratory workup revealed no leukocytosis, stable hemoglobin and hematocrit. BUN 37, creatinine 6.9, consistent with known history of end-stage renal disease. Sodium 130, potassium 4.8. Lactic acid 4.4. Stable LFT and bilirubin. Albumin 4.0. Troponin - 0.009, CK 151.EKG revealed normal sinus rhythm no acute ischemic changes. INR 1.3. Serum alcohol level 32 Chest x-ray revealed mild pulmonary vascular congestion. Patient was admitted for further management. 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 Barboza neurologist Dr. Rhiannon LINDSAY specialist vascular surgery Dr. Rodriguez psychiatrist [facility]: Patient admitted to telemetry floor and started on D10 drip. Ativan was on board as needed for anxiety and alcohol withdrawal Duplex of the left upper extremity revealed patency of the arteriovenous fistula. No evidence of pseudoaneurysm or hematoma. Vascular surgeon recommended continue hemodialysis via left arm arteriovenous fistula Hemodialysis provided with close monitoring of volumes electrolytes and renal parameters. Neurologist closely followed. EEG was normal. Stable vitamin D, B12 and serum protein electrophoresis. Ammonia within normal limits. RPR nonreactive. Noted low folate. Patient started on replacement with folic acid. CT of the head revealed no acute intracranial pathology but demonstrated moderate atrophy of the brain and evidence of chronic small disease involving white matter tracts. Per neurologist, patient history, neurological examination, imaging and laboratory data were most compatible with severe amnesia with other global cognitive impairment most probably related to encephalopathy due to alcohol use and possible hypoglycemia. Patient also had a neuropathic process with significant posterior column dysfunction, causing unsteady gait. Initially patient received IV thiamine and subcutaneous vitamin B12. Patient started on folic acid replacement daily for deficiency. Initial blood cultures were negative. However patient spiked temperature , while in the hospital. Initial lactic acid was elevated. I Repeated blood culture revealed high grade of Staphylococcus aureus. Infectious disease specialist closely followed. Patient was on Ancef as per infectious disease specialist recommendation. In order to rule out endocarditis TTE and CONY were done. Initial transthoracic echocardiogram revealed preserved ejection fraction of 55 % with no evidence of left ventricular hypertrophy. Right ventricular systolic pressure of 48 consistent with moderate pulmonary hypertension. No evidence of wall motion abnormality. No evidence of vegetation was seen on echocardiogram. Patient subsequently undergone transesophageal echocardiogram on 05/21 which showed no evidence of endocarditis. Patient had evidence of severe pulmonary hypertension and mild to moderate mitral regurgitation. Surveillance blood culture on 05/17 revealed evidence of growth . Surveillance blood culture on 05/19 preliminary showed no evidence of growth after 72 hours. Blood pressure was managed with calcium channel leeroy. Abdominal ultrasound revealed nonspecific gallbladder wall thickening and mild hepatomegaly . It also demonstrated kidney atrophy consistent with medical renal disease. CT of the abdomen and pelvis revealed fluid collection surrounding the left kidney presumed to be residual from previously demonstrated large perinephric and retroperitoneal hematoma. Atrophic bilateral kidneys consistent with chronic renal failure. Mild hepatomegaly. Gallbladder wall edema without evidence of stones. Cardiomegaly. Supplemental oxygen provided as needed to keep pulse oximetry above 92%. After blood sugar normalized, blood sugar was managed with sliding scale of insulin on as needed basis. Supportive care provided. Bowel regimen instituted. GI prophylaxis provided. Pain management was addressed. Patient was mobilized and was working with physical therapist. Psychiatrist closely followed. Per psychiatrist , patient had acute encephalopathy due to toxin. Psychiatric medication regimen was optimized as per psychiatry. Mental status was slowly improved to baseline. Patient was strongly advised on alcohol cessation . Patient was stable for discharge home. FINAL DIAGNOSES: Alcoholic /toxic encephalopathy with advanced dementia Hypoglycemia due to alcohol intoxication -resolved ETOH abuse Staphylococcus Aureus Sepsis Alcoholic Hepatopathy Severe pulmonary hypertension Mild to moderate mitral regurgitation Diabetes mellitus type 2 Hypertensive cardiovascular disease with initial hypertensive urgency Folate deficiency Noncompliance Gastroesophageal reflux disease Functional decline DISCHARGE MEDICATIONS: See Medication Reconciliation list. DISCHARGE INSTRUCTIONS: Patient was discharged home . Follow up with primary care provider in one week. Outpatient hemodialysis as scheduled. Compliance with medication regimen was stressed. Patient strongly advised on EtOH cessation and multiple risks associated with chronic alcohol use and abuse. I have been assigned to dictate discharge summary for this account. I was not involved in the patient's management. Sera Espinoza NP May 23, 2018 09:55
== END 2018-05-21 17:51 | disposition home or self-care (01) | DRG 637 ==
LOC: EMR 08:52 → 2W 11:40 → EDBEDREQSVC 12:59 → EDBEDREQ 14:32 → EDBEDREQSVC 15:07 → EDBEDREQ 16:06 → 4E 05-09 20:50
PROC: 5A1D70Z Performance of Urinary Filtration, Intermittent, Less than 6 Hours Per Day (ICD-10-PCS; principal; 2018-05-07)
PROC: B246ZZ4 Ultrasonography of Right and Left Heart, Transesophageal (ICD-10-PCS; 2018-05-21)
DX: E11.649 Type 2 diabetes mellitus with hypoglycemia without coma (principal); A41.01 Sepsis due to Methicillin susceptible Staphylococcus aureus; I13.2 Hypertensive heart and chronic kidney disease with heart failure and with stage 5 chronic kidney disease, or end stage renal disease; F10.239 Alcohol dependence with withdrawal, unspecified; T82.898A Other specified complication of vascular prosthetic devices, implants and grafts, initial encounter; N18.6 End stage renal disease; Z99.2 Dependence on renal dialysis; K21.9 Gastro-esophageal reflux disease without esophagitis; I16.0 Hypertensive urgency; I50.9 Heart failure, unspecified; Z91.15 Patient's noncompliance with renal dialysis; F10.229 Alcohol dependence with intoxication, unspecified; K70.30 Alcoholic cirrhosis of liver without ascites; G92 Toxic encephalopathy; F41.9 Anxiety disorder, unspecified; E53.8 Deficiency of other specified B group vitamins; I27.20 Pulmonary hypertension, unspecified; I34.0 Nonrheumatic mitral (valve) insufficiency; G31.84 Mild cognitive impairment of uncertain or unknown etiology
CPT/HCPCS: 36415; 70450; 71045; 74177; 76700; 80048; 80053; 80202; 80329; 82140; 82306; 82550; 82553; 82607; 82746; 82962; 83036; 83605; 84100; 84165; 84443; 84484; 85007; 85025; 85610; 85651; 86592; 87040; 87081; 87181; 93005; 93306; 93312; 93971; 94003; 94150; 94664; 95819; 96374; 96375; 99291; J1815; J2405